=== PATIENT | female | born 1970 | race Caucasian/White ===

== ENCOUNTER 2019-05-11 05:42 | Outpatient (RCR) | payer OTHER, SELFPAY | END 2019-05-16 00:01 | LOC: ONCMED 05:42 | PROVIDERS: Family Provider Family Medicine; Visit Provider Internal Medicine Medical Oncology | DX: K91.2 Postsurgical malabsorption, not elsewhere classified (principal); E61.0 Copper deficiency; D50.8 Other iron deficiency anemias; D51.8 Other vitamin B12 deficiency anemias | CPT/HCPCS: 80053 ×2; 85025 ×2; 96360 ×3; 96365 ×5; J0610 ×4; J1642 ×9; J3490 ×6; J7050 ×9 ==

== ENCOUNTER 2019-06-15 05:34 | Outpatient (RCR) | payer OTHER, SELFPAY | END 2019-06-16 00:01 | LOC: ONCMED 05:34 | PROVIDERS: Family Provider Family Medicine; Visit Provider Internal Medicine Medical Oncology | DX: D50.8 Other iron deficiency anemias (principal); D51.8 Other vitamin B12 deficiency anemias; K91.2 Postsurgical malabsorption, not elsewhere classified; Z98.84 Bariatric surgery status; G89.29 Other chronic pain; N31.9 Neuromuscular dysfunction of bladder, unspecified; N39.0 Urinary tract infection, site not specified; E55.9 Vitamin D deficiency, unspecified | CPT/HCPCS: 36415; 80053 ×3; 81001; 82306; 82525; 82607; 82728; 83090; 83540; 83550; 83921; 84439; 84443; 84481; 85025 ×3; 87077; 87086 ×2; 87186; 90670; 96360; 96365 ×5; 96367 ×2; 96368; 99214; G0009; J0610 ×5; J1439 ×2; J1642 ×7; J3490 ×2; J7050 ×8 ==

== ENCOUNTER 2019-07-13 05:39 | Outpatient (RCR) | payer OTHER, SELFPAY ==
[2019-06-18] MEDS: SODIUM CHLORIDE 0.9% IV (08:45)
[2019-06-18] MEDS: CUPRIC CHLORIDE IV (08:45)
[2019-06-19] MEDS: CUPRIC CHLORIDE IV (09:08)
[2019-06-19] MEDS: SODIUM CHLORIDE 0.9% IV (09:08)
[2019-06-29 10:50] LABS: Basophils % 0.5 %; Eosinophils # 0.1 10^3/uL (0.0-0.8); Eosinophils % 1.3 %; Hematocrit 32.5 % (37.0-47.0); Hemoglobin 10.1 g/dL (11.5-15.3); Lymphocytes # 0.9 10^3/uL (0.8-4.8); Lymphocytes % 22.8 %; Mean Corpuscular HGB Conc 31.1 g/dL (30.0-36.0); Mean Corpuscular Hemoglobin 33.1 pg (28.0-34.0); Mean Corpuscular Volume 106.6 fL (81-99); Monocytes # 0.3 10^3/uL (0.2-0.9); Monocytes % 7.5 %; Neutrophils # 2.5 10^3/uL (1.8-7.7); Neutrophils % 67.9 %; Nucleated Red Blood Cells % 0 %; Platelet Count 152 10^3/cmm (130-400); Red Blood Count 3.05 10^6/uL (4.1-5.3); Red Cell Distribution Width 14.1 % (12.1-15.1); White Blood Count 3.7 10^3/uL (4.0-10.0)
[2019-06-29 11:07] LABS: Alanine Aminotransferase 41 U/L (0-33); Albumin Level 4.3 g/dL (3.5-5.2); Alkaline Phosphatase 103 IU/L (35-105); Aspartate Amino Transferase 34 U/L (0-32); Blood Urea Nitrogen 8 mg/dL (6-20); Calcium 8.5 mg/Dl (8.6-10.0); Carbon Dioxide 20 mmol/L (22-29); Chloride 110 mmol/L (98-107); Globulin 1.4 g/dL (1.3-4.6); Glomerular Filtration Rate 106.7 mL/min (90-130); Glucose 92 mg/dL (74-109); Sodium 139 mmol/L (136-145); Total Bilirubin 0.2 mg/dL (0.15-1.2); Total Protein 5.7 g/dL (6.6-8.7)
[2019-07-13 09:29] LABS: Basophils % 0.9 %; Eosinophils # 0.1 10^3/uL (0.0-0.8); Eosinophils % 2.8 %; Hematocrit 30.3 % (37.0-47.0); Hemoglobin 9.3 g/dL (11.5-15.3); Lymphocytes % 32.9 %; Mean Corpuscular HGB Conc 30.7 g/dL (30.0-36.0); Mean Corpuscular Volume 107.4 fL (81-99); Mean Platelet Volume 9.9 fL (7.4-10.4); Monocytes # 0.3 10^3/uL (0.2-0.9); Monocytes % 9.8 %; Neutrophils # 1.7 10^3/uL (1.8-7.7); Neutrophils % 53.3 %; Nucleated Red Blood Cells % 0 %; Platelet Count 164 10^3/cmm (130-400); Red Blood Count 2.82 10^6/uL (4.1-5.3); Red Cell Distribution Width 13.2 % (12.1-15.1); White Blood Count 3.2 10^3/uL (4.0-10.0)
[2019-07-13 09:45] LABS: Alanine Aminotransferase 23 U/L (0-33); Albumin Level 3.9 g/dL (3.5-5.2); Alkaline Phosphatase 101 IU/L (35-105); Anion Gap 11.3 (5-19); Aspartate Amino Transferase 25 U/L (0-32); Blood Urea Nitrogen 12 mg/dL (6-20); Carbon Dioxide 22 mmol/L (22-29); Chloride 107 mmol/L (98-107); Globulin 1.7 g/dL (1.3-4.6); Glomerular Filtration Rate 76.6 mL/min (90-130); Glucose 106 mg/dL (74-109); Potassium 4.3 mmol/L (3.5-5.1); Sodium 136 mmol/L (136-145); Total Bilirubin 0.2 mg/dL (0.15-1.2); Total Protein 5.6 g/dL (6.6-8.7)
== END 2019-07-17 23:59 | disposition home or self-care (01) ==
LOC: ONCMED 05:39
PROVIDERS: Family Provider Family Medicine; PCP Family Medicine; Visit Provider Internal Medicine Medical Oncology
DX: K91.2 Postsurgical malabsorption, not elsewhere classified (principal); E61.0 Copper deficiency; D51.8 Other vitamin B12 deficiency anemias; D50.8 Other iron deficiency anemias
CPT/HCPCS: 80053; 85025; 96365; J0610; J3490; J7050

== ENCOUNTER 2019-08-11 05:36 | Outpatient (RCR) | payer OTHER, SELFPAY ==
[2019-07-27 09:35] LABS: Basophils % 0.8 %; Eosinophils # 0.1 10^3/uL (0.0-0.8); Hematocrit 30.1 % (37.0-47.0); Hemoglobin 9.4 g/dL (11.5-15.3); Lymphocytes # 1.5 10^3/uL (0.8-4.8); Lymphocytes % 38.1 %; Mean Corpuscular HGB Conc 31.2 g/dL (30.0-36.0); Mean Corpuscular Hemoglobin 33.2 pg (28.0-34.0); Mean Corpuscular Volume 106.4 fL (81-99); Mean Platelet Volume 10.1 fL (7.4-10.4); Monocytes # 0.5 10^3/uL (0.2-0.9); Monocytes % 11.9 %; Neutrophils # 1.8 10^3/uL (1.8-7.7); Neutrophils % 46.2 %; Nucleated Red Blood Cells % 0 %; Platelet Count 156 10^3/cmm (130-400); Red Blood Count 2.83 10^6/uL (4.1-5.3); Red Cell Distribution Width 12.7 % (12.1-15.1); White Blood Count 3.9 10^3/uL (4.0-10.0)
[2019-07-27 10:05] LABS: Alanine Aminotransferase 28 U/L (0-33); Albumin Level 3.6 g/dL (3.5-5.2); Alkaline Phosphatase 118 IU/L (35-105); Anion Gap 14.2 (5-19); Aspartate Amino Transferase 29 U/L (0-32); Blood Urea Nitrogen 10 mg/dL (6-20); Carbon Dioxide 22 mmol/L (22-29); Chloride 105 mmol/L (98-107); Globulin 1.8 g/dL (1.3-4.6); Glomerular Filtration Rate 66.8 mL/min (90-130); Glucose 85 mg/dL (65-115); Potassium 4.2 mmol/L (3.5-5.1); Sodium 137 mmol/L (136-145); Total Bilirubin 0.2 mg/dL (0.15-1.2); Total Protein 5.4 g/dL (6.6-8.7)
[2019-07-28] MEDS: SODIUM CHLORIDE 0.9% IV (08:45)
[2019-07-28] MEDS: CUPRIC CHLORIDE IV (08:45)
[2019-07-29] MEDS: SODIUM CHLORIDE 0.9% IV (08:50)
[2019-07-29] MEDS: CUPRIC CHLORIDE IV (08:50)
[2019-07-30] MEDS: SODIUM CHLORIDE 0.9% IV (08:40)
[2019-07-30] MEDS: CUPRIC CHLORIDE IV (08:40)
[2019-07-31] MEDS: SODIUM CHLORIDE 0.9% IV (08:55)
[2019-07-31] MEDS: CUPRIC CHLORIDE IV (08:55)
[2019-08-10 09:24] LABS: Basophils % 0.6 %; Eosinophils # 0.1 10^3/uL (0.0-0.8); Eosinophils % 1.3 %; Hematocrit 32.1 % (37.0-47.0); Hemoglobin 9.8 g/dL (11.5-15.3); Lymphocytes # 1.1 10^3/uL (0.8-4.8); Lymphocytes % 22.7 %; Mean Corpuscular HGB Conc 30.5 g/dL (30.0-36.0); Mean Corpuscular Hemoglobin 31.9 pg (28.0-34.0); Mean Corpuscular Volume 104.6 fL (81-99); Monocytes # 0.4 10^3/uL (0.2-0.9); Monocytes % 7.8 %; Neutrophils # 3.2 10^3/uL (1.8-7.7); Neutrophils % 67.4 %; Nucleated Red Blood Cells % 0 %; Platelet Count 196 10^3/cmm (130-400); Red Blood Count 3.07 10^6/uL (4.1-5.3); Red Cell Distribution Width 12.2 % (12.1-15.1); White Blood Count 4.8 10^3/uL (4.0-10.0)
[2019-08-10 09:47] LABS: Alanine Aminotransferase 33 U/L (0-33); Albumin Level 3.9 g/dL (3.5-5.2); Alkaline Phosphatase 130 IU/L (35-105); Anion Gap 15.3 (5-19); Aspartate Amino Transferase 29 U/L (0-32); Blood Urea Nitrogen 17 mg/dL (6-20); Carbon Dioxide 21 mmol/L (22-29); Chloride 105 mmol/L (98-107); Globulin 2.5 g/dL (1.3-4.6); Glomerular Filtration Rate 66.8 mL/min (90-130); Glucose 107 mg/dL (65-115); Potassium 4.3 mmol/L (3.5-5.1); Sodium 137 mmol/L (136-145); Total Bilirubin 0.3 mg/dL (0.15-1.2); Total Protein 6.4 g/dL (6.6-8.7)
[2019-08-11 09:16] LABS: Free T4 Free Thyroxine 0.75 ng/dL (0.82-1.77); Lactate Dehydrogenase 208 U/L (135-214); T3 Free 2.4 PG/ML (2.0-4.4); Thyroid Stimulating Hormone 21.55 uIU/mL (0.27-4.20)
[2019-08-11 09:37] LABS: 25 Hydroxy Vitamin D < 5 ng/mL (30-100)
[2019-08-11 09:52] LABS: Ferritin 417 ng/mL (15-150); Iron 151 ug/dL (37-145); Percent Saturation 44.1 % (20-50); Total Iron Binding Capacity 342 mcg/dl; Unsaturated Iron Binding 191 ug/dL (112-347)
[2019-08-13 18:55] LABS: Copper Level 72 mcg/dL (70-175)
== END 2019-08-15 23:59 | disposition home or self-care (01) ==
LOC: ONCMED 05:36
PROVIDERS: Family Provider Family Medicine; PCP Family Medicine; Visit Provider Internal Medicine Medical Oncology
DX: E61.0 Copper deficiency (principal); K91.2 Postsurgical malabsorption, not elsewhere classified; D51.8 Other vitamin B12 deficiency anemias; D50.9 Iron deficiency anemia, unspecified
CPT/HCPCS: 36591; 80053; 82306; 82525; 82728; 83540; 83550; 83615; 84439; 84443; 84481; 85025; 96365; 96366; 96368; J0610; J3490; J7050

== ENCOUNTER 2019-09-15 06:42 | Outpatient (RCR) | payer OTHER, SELFPAY ==
--- NOTE | 2019-08-18 07:06 | ONC FU_ITS ---
Dr. Jim Patient Follow-Up Note Patient: Radha Contreras Unit #: [id number]: [id number] Dicatated By: Gerardo Jim M.D.Date of Visit:Aug 17, 2019 Onc Med Follow-up/Prog Note Chief Complaint: Anemia. History of Present Illness: This is a 49 year-old woman with chronic anemia. I had initially seen for iron deficiency anemia which developed in association with a previous gastric bypass procedure. I had treated her with parenteral iron dextran in 2003 and again in 2005. She also was on B12 replacement, and for a while she was getting Procrit injections, but that was stopped as of April 2007. I had seen her again in October of 2012 when she again required parenteral iron dextran. Shortly after that visit she was hospitalized at [facility] in [place] with bowel obstruction secondary to intussusception. She required multiple surgeries, including temporary ileostomy and placement of a PEG tube. She had associated sepsis with respiratory failure and with renal failure. She eventually did recover, but she was hospitalized again in September of 2015 for urinary tract infection and sepsis. She was found to be anemic again in January 2016. Her laboratory studies from 02/01/2016 included CBC showing hemoglobin 8.6 g with hematocrit 29%. The red cell indices were macrocytic with MCV 110 MCH 31. The white blood cell count was 4800 and the platelet count was 200,000. The serum iron was normal at 91 mcg/dL with transferrin saturation 23%. Ferritin was normal 140 ng/mL. Her CBC from 03/02/2016 showing hemoglobin down to 8.2 g with hematocrit 28%. At that time they folic acid level was normal at 6.9 ng/mL with B12 level in the low-normal range at 290 pg/mL. She was given a transfusion of 2 minutes of packed red blood cells on 03/08/2016. I had seen her for a follow-up visit on 04/02/2016. Her CBC at that time showed hemoglobin 9.3 g with white blood cell count 3800 and platelet count 146,000. Red cell indices were mildly macrocytic. Protein electrophoresis showed hypogammaglobulinemia. There is no monoclonal protein. The B12 level was in the low-normal range at 303 5 pg/mL with folate 6.30 ng/mL. The methylmalonic acid level was significantly elevated at 1511 nmol/L with homocysteine elevated at 18.7 nmol/L. She had been on monthly B12 replacement. Given those findings, her B12 injections were increased to weekly. She was given a single infusion of Injectafer on 06/08/2016. During subsequent follow-up, she remained mildly anemic. As of 10/16/2016 her hemoglobin was mildly decreased but stable at 10.1 g with mildly macrocytic red cell indices. Her serum iron studies showed transferrin saturation just slightly low at 17% with ferritin 98 ng/mL. She underwent bone marrow aspiration/biopsy on 10/31/2016. It showed normal cellularity of 35-40%. There was limited dyserythropoiesis involving less than 5% of the population. Blasts were not increased. There was no evidence of an infiltrative process. Iron stores were 1-2+/4. The flow cytometry was unremarkable. The chromosome analysis was normal, and the FISH panel for MDS was unrevealing. Overall, the findings were nondiagnostic. Her repeat CBC on 12/07/2016 showed hemoglobin down to 8.7 g with white blood cell count 3600 and platelet count 208,000. The serum iron was 60 mcg/dL with transferrin saturation 13.4%. Ferritin level was 145 ng/mL. Homocysteine level was elevated at 18.3 ???mol per liter. The methylmalonic acid level at that point was still elevated at 786/378 nmol/L despite the fact that she been receiving B12 injections weekly. With the low transferrin saturation, she was given an additional infusion of Injectafer on 12/11/2016. In addition, she was instructed to take her B12 injections daily for 7 days, and she then continued it weekly. Her follow-up CBC on 12/25/2016 showed just a slight increase in her hemoglobin, to 9.5 g with her MCV slightly high but stable at 103. During subsequent follow-up, her methylmalonic acid level remained elevated despite having weekly B12 injections, and she remained mildly anemic. On 04/18/2017 she presented to the emergency room with pain in the lower abdominal area. Her CT abdomen/pelvis showed twisting of the sigmoid colon and associated mesentery with mild bowel distention but without gross bowel dilatation. The findings were felt to be suspicious for internal hernia. She was known to have a large amount of colonic stool. She was transferred to the [facility] for further management, and she subsequently was admitted to the hospital there. Her obstructive symptoms resolved within a few days. She was, however, also found to have evidence of rectal prolapse, and she then underwent perineal proctectomy. As of 06/04/2017 her CBC showed decline in her hemoglobin to 8.8 g with MCV 102.6. The white blood cell count was 3300 and the platelet count was 284,000. The uncorrected reticulocyte count was 1.4%. Her chem profile showed normal renal function with BUN 15 and creatinine 0.7 mg/dL. Liver enzymes were normal. The serum iron studies showed low transferrin saturation at 15.3%, but with ferritin slightly high at 295 ng/mL. B12 level was normal at 471 pg/mL with folate level 7.20 ng/mL. Methylmalonic acid level was still elevated at 977/378 nmol/L. Her serum copper level was found to be low at 47 g/dL. She initially was started on oral copper supplementation. She then had further follow-up through her surgeon in [place], and there was reportedly no evidence of response to the oral copper supplement. She was then referred to a welder 2nd shift there in [place] and in August or September 2017, and she subsequently began copper infusions daily for 5 days every 6 weeks. During her further follow-up, she also developed symptomatic hypocalcemia, and she was found to have severe vitamin D deficiency. She has since then been receiving weekly infusions of calcium gluconate and a multivitamin preparation along with her B12 replacement and her copper infusions every 6 weeks. Her other medical illnesses include hypertension and hypothyroidism. She has had chronic fatigue and chronic pain, and she has neurogenic bladder. She has history of smoking 1 pack of cigarettes daily for 12 years. She quit smoking 5 years ago. INTERIM HISTORY: She is seen for a scheduled visit. She has been feeling okay, though lately she has been dragging quite a bit. Last week she had fever for a day and a half, up to 102 degrees. During that time she was more fatigued, she also had headache and nausea, but she did not have other symptoms to suggest an obvious source for the fever. She is still working. Her ECOG score is 1. Her appetite has generally been pretty good. She does not have night sweats or hot flashes. She has had just a couple of little sores in her mouth. She does not complain of shortness of breath, cough, or chest pain. She continues to have frequent bowel movements with some incontinence. She has not been aware of any blood in the stool. She self catheterizes for urinary retention. She has some generalized aching, more in the bones than the joints. She also has neck and back pain. She has no focal neurologic symptoms. Medications: Benadryl 2 - 4 (25 mg) Tablet Oral q 4 hours PRN, Cyanocobalamin 1 mL (of 1000 mcg/mL) Injection q 1 week for 12 times, Cytomel 1 (50 mcg) Tablet Oral daily, Folic Acid 1 (1 mg) Tablet Oral daily, Promethazine HCl 1 - 2 (25 mg) Tablet Oral q 4 hours PRN, Synthroid 5 (300 mcg) Tablet Oral daily, TraMADol HCl 2 Tablet (of 50 mg) Oral q 6 hours PRN, Tylenol 2 (325 mg) Tablet Oral q 4 hours PRN, Zofran 1 (4 mg) Tablet Oral PRN Allergies: Erythromycin, Methylporafen, Morphine Sulfate, neosporin, Stadol, and Versed. Review of Systems: Constitutional - Her energy is low. She does some light work at home. Her appetite is good and her weight is up a few pounds since her last visit. She had a fever last week of 102. It lasted a couple of days. No chills, hot flashes, or night sweats. ECOG score is 1, ENMT - No sinus congestion/drainage. She has a couple of mouth sores. No sore throat or difficulty swallowing, Hematologic/Lymphatic - No abnormal bruising or bleeding, Respiratory - She has some trouble breathing through her nose at times. No shortness of breath. No cough. No pleuritic pain or hemoptysis, Cardiovascular - No angina pain. No palpitations, Gastrointestinal - No nausea or vomiting. No heartburn or acid reflux. She has frequent bowel movements. No blood in the stool or black stools, Genitourinary (F) - She self catheterizes, Musculoskeletal - She has pain in her back and neck, Integumentary - No skin complications, Neurologic - No headache or dizziness. She has some numbness and tingling, which is chronic for her, Psychiatric - No anxiety or depression. She is not sleeping well at night. Vital Signs: Performed on Aug 17, 2019 08:36 Height - 63.00 in Weight - 153 lbs (HIGH) BSA - 1.73 sq.m BMI - 27.10 Temperature - 98.3 F (LOW) Pulse - 93 /min Respiration - 16 /min BP - 124/65 mm(hg) O2 Sat - 96 % Pain - 0 Physical Examination: Constitutional - She looks pretty good generally, Eyes - Sclerae nonicteric. Conjunctivae clear, ENMT - No lesions noted in the oral cavity, Hematologic/Lymphatic - No cervical, clavicular, or axillary adenopathy, Respiratory - Lungs are clear, Cardiovascular - Heart rhythm is regular. There is no murmur, gallop, or rub noted, Abdomen - Soft. The PEG tube site appears unremarkable. Liver and spleen are not enlarged. There is no abdominal mass or ascites noted. There is no inguinal adenopathy, Extremities - No edema, Neurologic - No focal neurologic deficits noted. Lab/Imaging: Test performed on Aug 11, 2019 08:22 Copper 72 mcg/dL Ferritin 417 ng/mL Iron 151 ug/dL LDH (Total) 208 U/L T3, Free 2.4 PG/ML T4, Free 0.75 ng/dL TSH 21.55 uIU/mL Vitamin D (25-Hydroxy), Total < 5 ng/mL UIBC 191 ug/dL Test performed on Aug 10, 2019 08:55 Sodium 137 mmol/L Potassium 4.3 mmol/L Chloride 105 mmol/L CO2 21 mmol/L Anion Gap 15.3 BUN 17 mg/dL Creatinine 0.9 mg/dL Cr Clearance (Est) 77.1800 mL/min eGFR 66.8 mL/min Glucose 107 mg/dL Calcium 9.0 mg/dL Protein, Total 6.4 g/dL Albumin 3.9 g/dL Globulin 2.5 g/dL Bilirubin, Total 0.3 mg/dL ALT (SGPT) 33 U/L AST (SGOT) 29 U/L Alkaline Phosphatase 130 IU/L WBC 4.8 10 3/uL RBC 3.07 10 6/uL HGB 9.8 g/dL HCT 32.1 % MCV 104.6 fL MCH 31.9 pg MCHC 30.5 g/dL RDW 12.2 % Platelet Count 196 10 3/cmm MPV 10.0 fL Neutrophils 3.2 10 3/uL Lymphocytes 1.1 10 3/uL Monocytes 0.4 10 3/uL Eosinophils 0.1 10 3/uL Basophils 0.0 10 3/uL Neutrophil % 67.4 % Lymphocyte % 22.7 % Monocyte % 7.8 % Eosinophil % 1.3 % Basophils % 0.6 % Impression: 1. Patient with recurrent iron deficiency anemia which developed following a gastric bypass procedure in 2001. She was given parenteral iron replacement with iron dextran in 2003, in 2005, and in October 2012. 2. She also had associated B12 deficiency. In March 2016 she was found to have a significantly elevated methylmalonic acid level despite monthly B12 injections. 3. Her clinical course was complicated by intussusception with bowel obstruction in October 2012. She had associated sepsis with respiratory failure and renal failure. She required multiple surgeries which included extensive bowel resection, temporary ileostomy, and placement of PEG tube. 4. She has had nutritional deficiencies related to short gut syndrome . 5. She has had chronic back pain and neurogenic bladder. During her follow-up she has had macrocytic anemia with elevated methylmalonic acid level which has persisted despite B12 replacement. Her bone marrow aspiration/biopsy on 10/31/2016 showed normal cellular marrow with no diagnostic findings. Iron stores were 1-2+. The chromosome analysis was normal, and the FISH panel for MDS was unrevealing. She subsequently was found to have copper deficiency, and she then began IV copper infusions daily for 5 days every 6 weeks. During this time she also has continued to receive parenteral iron replacement with Injectafer as needed. She had some improvement in her activity tolerance after starting the copper infusions. As of May 2018 her methylmalonic acid level had come down to normal, but she continued to have macrocytic anemia. With her short gut syndrome, she also continued to have a mildly elevated TSH level despite taking high dose of Synthroid. In August 2018 she presented with symptomatic hypocalcemia, and her 25-hydroxy vitamin D level also was found to be very low. She then started weekly infusions of calcium gluconate and a multivitamin preparation. She continued IV copper infusions every 6 weeks, and she also continued her B12 replacement. She received parenteral iron replacement with Injectafer again in May 2019. During follow-up there has been some improvement in her performance status, though she has remained mildly anemic and she has continued to have a very low vitamin D level despite the IV replacement therapy. Her overall clinical status otherwise appears stable. Plan: She will continue with parenteral replacement therapy to include weekly infusions of calcium gluconate and multivitamin and copper replacement every 6 weeks. She will continue her B12 injections. I will now have her try adding a sublingual vitamin D preparation. I will see her again in 3 months, or sooner as needed. Signed By: Gerardo Jim M.D. <<Signature on File>>
[2019-08-24] MEDS: sodium chloride 0.9% 100 ML 280 ML (09:02)
[2019-08-24 09:12] LABS: Basophils % 1.1 %; Eosinophils # 0.1 10^3/uL (0.0-0.8); Eosinophils % 2.2 %; Hematocrit 30.2 % (37.0-47.0); Hemoglobin 9.5 g/dL (11.5-15.3); Lymphocytes # 0.9 10^3/uL (0.8-4.8); Lymphocytes % 32.6 %; Mean Corpuscular HGB Conc 31.5 g/dL (30.0-36.0); Mean Corpuscular Hemoglobin 34.3 pg (28.0-34.0); Mean Platelet Volume 9.7 fL (7.4-10.4); Monocytes # 0.3 10^3/uL (0.2-0.9); Monocytes % 11.6 %; Neutrophils # 1.4 10^3/uL (1.8-7.7); Neutrophils % 52.1 %; Nucleated Red Blood Cells % 0 %; Platelet Count 155 10^3/cmm (130-400); Red Blood Count 2.77 10^6/uL (4.1-5.3); Red Cell Distribution Width 11.9 % (12.1-15.1); White Blood Count 2.8 10^3/uL (4.0-10.0)
[2019-08-24 09:26] LABS: Alanine Aminotransferase 25 U/L (0-33); Albumin Level 3.6 g/dL (3.5-5.2); Alkaline Phosphatase 128 IU/L (35-105); Anion Gap 12.2 (5-19); Aspartate Amino Transferase 27 U/L (0-32); Blood Urea Nitrogen 13 mg/dL (6-20); Calcium 8.6 mg/dL (8.5-10.5); Carbon Dioxide 21 mmol/L (22-29); Chloride 107 mmol/L (98-107); Globulin 2.2 g/dL (1.3-4.6); Glomerular Filtration Rate 76.6 mL/min (90-130); Glucose 117 mg/dL (65-115); Osmolality Calculated 279 mOsm/kg (285-295); Potassium 4.2 mmol/L (3.5-5.1); Sodium 136 mmol/L (136-145); Total Bilirubin 0.3 mg/dL (0.15-1.2); Total Protein 5.8 g/dL (6.6-8.7)
[2019-09-07 09:11] LABS: Basophils % 0.5 %; Eosinophils # 0.1 10^3/uL (0.0-0.8); Eosinophils % 2.3 %; Hematocrit 31.8 % (37.0-47.0); Hemoglobin 9.8 g/dL (11.5-15.3); Lymphocytes # 1.2 10^3/uL (0.8-4.8); Lymphocytes % 30.3 %; Mean Corpuscular HGB Conc 30.8 g/dL (30.0-36.0); Mean Corpuscular Hemoglobin 33.2 pg (28.0-34.0); Mean Corpuscular Volume 107.8 fL (81-99); Mean Platelet Volume 10.1 fL (7.4-10.4); Monocytes # 0.3 10^3/uL (0.2-0.9); Monocytes % 8.5 %; Neutrophils # 2.3 10^3/uL (1.8-7.7); Neutrophils % 58.1 %; Nucleated Red Blood Cells % 0 %; Platelet Count 178 10^3/cmm (130-400); Red Blood Count 2.95 10^6/uL (4.1-5.3); Red Cell Distribution Width 11.8 % (12.1-15.1)
[2019-09-07 09:32] LABS: Alanine Aminotransferase 22 U/L (0-33); Albumin Level 4.2 g/dL (3.5-5.2); Alkaline Phosphatase 139 IU/L (35-105); Anion Gap 11.2 (5-19); Aspartate Amino Transferase 28 U/L (0-32); Blood Urea Nitrogen 13 mg/dL (6-20); Calcium 8.7 mg/dL (8.5-10.5); Carbon Dioxide 23 mmol/L (22-29); Chloride 108 mmol/L (98-107); Globulin 2.1 g/dL (1.3-4.6); Glomerular Filtration Rate 76.6 mL/min (90-130); Glucose 107 mg/dL (65-115); Osmolality Calculated 283 mOsm/kg (285-295); Potassium 4.2 mmol/L (3.5-5.1); Sodium 138 mmol/L (136-145); Total Bilirubin 0.3 mg/dL (0.15-1.2); Total Protein 6.3 g/dL (6.6-8.7)
[2019-09-15] MEDS: SODIUM CHLORIDE 0.9% IV (09:10)
[2019-09-15] MEDS: CUPRIC CHLORIDE IV (09:10)
== END 2019-09-15 23:59 | disposition home or self-care (01) ==
LOC: ONCMED 06:42
PROVIDERS: Family Provider Family Medicine; PCP Family Medicine; Visit Provider Internal Medicine Medical Oncology
DX: D50.8 Other iron deficiency anemias (principal); K91.2 Postsurgical malabsorption, not elsewhere classified; E55.9 Vitamin D deficiency, unspecified; E53.8 Deficiency of other specified B group vitamins; G89.29 Other chronic pain; M54.9 Dorsalgia, unspecified; N31.9 Neuromuscular dysfunction of bladder, unspecified; E61.0 Copper deficiency; D51.8 Other vitamin B12 deficiency anemias; I10 Essential (primary) hypertension; E03.9 Hypothyroidism, unspecified; R53.82 Chronic fatigue, unspecified; Z98.84 Bariatric surgery status; Z87.891 Personal history of nicotine dependence
CPT/HCPCS: 80053; 85025; 96365; 96368; 99214; J0610; J3490; J7050

== ENCOUNTER 2019-10-12 06:44 | Outpatient (RCR) | payer OTHER, SELFPAY ==
[2019-09-21 09:14] LABS: Basophils % 0.7 %; Eosinophils # 0.1 10^3/uL (0.0-0.8); Eosinophils % 1.4 %; Hematocrit 33.3 % (37.0-47.0); Hemoglobin 10.4 g/dL (11.5-15.3); Lymphocytes % 22.9 %; Mean Corpuscular HGB Conc 31.2 g/dL (30.0-36.0); Mean Corpuscular Hemoglobin 33.5 pg (28.0-34.0); Mean Corpuscular Volume 107.4 fL (81-99); Monocytes # 0.3 10^3/uL (0.2-0.9); Monocytes % 7.4 %; Neutrophils # 2.8 10^3/uL (1.8-7.7); Neutrophils % 67.4 %; Nucleated Red Blood Cells % 0 %; Platelet Count 188 10^3/cmm (130-400); Red Cell Distribution Width 11.9 % (12.1-15.1); White Blood Count 4.2 10^3/uL (4.0-10.0)
[2019-09-21 09:30] LABS: Alanine Aminotransferase 33 U/L (0-33); Albumin Level 4.2 g/dL (3.5-5.2); Alkaline Phosphatase 143 IU/L (35-105); Anion Gap 15.1 (5-19); Aspartate Amino Transferase 30 U/L (0-32); Blood Urea Nitrogen 12 mg/dL (6-20); Calcium 8.7 mg/dL (8.5-10.5); Carbon Dioxide 20 mmol/L (22-29); Chloride 108 mmol/L (98-107); Globulin 2.1 g/dL (1.3-4.6); Glomerular Filtration Rate 76.6 mL/min (90-130); Glucose 123 mg/dL (65-115); Osmolality Calculated 285 mOsm/kg (285-295); Potassium 4.1 mmol/L (3.5-5.1); Sodium 139 mmol/L (136-145); Total Bilirubin 0.3 mg/dL (0.15-1.2); Total Protein 6.3 g/dL (6.6-8.7)
[2019-09-21 11:13] LABS: 25 Hydroxy Vitamin D > 100 ng/mL (30-100)
[2019-09-23 17:27] LABS: Copper Level 69 mcg/dL (70-175)
[2019-09-28 10:04] LABS: Basophils % 0.7 %; Eosinophils # 0.1 10^3/uL (0.0-0.8); Eosinophils % 1.2 %; Hematocrit 32.1 % (37.0-47.0); Hemoglobin 10.1 g/dL (11.5-15.3); Lymphocytes # 0.9 10^3/uL (0.8-4.8); Lymphocytes % 22.6 %; Mean Corpuscular HGB Conc 31.5 g/dL (30.0-36.0); Mean Corpuscular Hemoglobin 33.4 pg (28.0-34.0); Mean Corpuscular Volume 106.3 fL (81-99); Monocytes # 0.3 10^3/uL (0.2-0.9); Neutrophils # 2.8 10^3/uL (1.8-7.7); Neutrophils % 67.3 %; Nucleated Red Blood Cells % 0 %; Platelet Count 183 10^3/cmm (130-400); Red Blood Count 3.02 10^6/uL (4.1-5.3); Red Cell Distribution Width 12.1 % (12.1-15.1); White Blood Count 4.1 10^3/uL (4.0-10.0)
[2019-09-28 10:07] LABS: Alanine Aminotransferase 34 U/L (0-33); Albumin Level 4.2 g/dL (3.5-5.2); Alkaline Phosphatase 131 IU/L (35-105); Aspartate Amino Transferase 34 U/L (0-32); Blood Urea Nitrogen 12 mg/dL (6-20); Calcium 8.6 mg/dL (8.5-10.5); Carbon Dioxide 22 mmol/L (22-29); Chloride 107 mmol/L (98-107); Globulin 1.9 g/dL (1.3-4.6); Glomerular Filtration Rate 76.6 mL/min (90-130); Glucose 100 mg/dL (65-115); Osmolality Calculated 284 mOsm/kg (285-295); Sodium 139 mmol/L (136-145); Total Bilirubin 0.4 mg/dL (0.15-1.2); Total Protein 6.1 g/dL (6.6-8.7)
[2019-09-28 11:18] LABS: 25 Hydroxy Vitamin D 11 ng/mL (30-100)
[2019-10-01 19:30] LABS: Copper Level 74 mcg/dL (70-175)
[2019-10-12 09:04] LABS: Basophils % 0.6 %; Eosinophils # 0.1 10^3/uL (0.0-0.8); Eosinophils % 1.2 %; Hematocrit 34.1 % (37.0-47.0); Hemoglobin 10.5 g/dL (11.5-15.3); Lymphocytes # 1.6 10^3/uL (0.8-4.8); Lymphocytes % 31.1 %; Mean Corpuscular HGB Conc 30.8 g/dL (30.0-36.0); Mean Corpuscular Hemoglobin 33.2 pg (28.0-34.0); Mean Corpuscular Volume 107.9 fL (81-99); Monocytes # 0.4 10^3/uL (0.2-0.9); Monocytes % 8.5 %; Neutrophils % 58.4 %; Nucleated Red Blood Cells % 0 %; Platelet Count 179 10^3/cmm (130-400); Red Blood Count 3.16 10^6/uL (4.1-5.3); Red Cell Distribution Width 11.9 % (12.1-15.1); White Blood Count 5.1 10^3/uL (4.0-10.0)
[2019-10-12 09:19] LABS: Alanine Aminotransferase 27 U/L (0-33); Albumin Level 4.4 g/dL (3.5-5.2); Alkaline Phosphatase 122 IU/L (35-105); Anion Gap 15.2 (5-19); Aspartate Amino Transferase 28 U/L (0-32); Blood Urea Nitrogen 14 mg/dL (6-20); Calcium 8.8 mg/dL (8.5-10.5); Carbon Dioxide 21 mmol/L (22-29); Chloride 103 mmol/L (98-107); Globulin 2.3 g/dL (1.3-4.6); Glomerular Filtration Rate 66.8 mL/min (90-130); Glucose 99 mg/dL (65-115); Osmolality Calculated 276 mOsm/kg (285-295); Potassium 4.2 mmol/L (3.5-5.1); Sodium 135 mmol/L (136-145); Total Bilirubin 0.3 mg/dL (0.15-1.2); Total Protein 6.7 g/dL (6.6-8.7)
== END 2019-10-15 23:59 | disposition home or self-care (01) ==
LOC: ONCMED 06:44
PROVIDERS: Family Provider Family Medicine; PCP Family Medicine; Visit Provider Internal Medicine Medical Oncology
DX: K91.2 Postsurgical malabsorption, not elsewhere classified (principal); E61.0 Copper deficiency; D51.8 Other vitamin B12 deficiency anemias; D50.8 Other iron deficiency anemias; E55.9 Vitamin D deficiency, unspecified; E03.9 Hypothyroidism, unspecified
CPT/HCPCS: 80053; 82306; 82525; 85025; 96365; 96368; J0610; J3490; J7050

== ENCOUNTER 2019-11-10 06:49 | Outpatient (RCR) | payer OTHER, SELFPAY ==
[2019-10-26 09:31] LABS: Basophils % 0.9 %; Eosinophils # 0.1 10^3/uL (0.0-0.8); Eosinophils % 3.2 %; Hematocrit 31.6 % (37.0-47.0); Hemoglobin 9.6 g/dL (11.5-15.3); Lymphocytes # 1.7 10^3/uL (0.8-4.8); Lymphocytes % 37.2 %; Mean Corpuscular HGB Conc 30.4 g/dL (30.0-36.0); Mean Corpuscular Hemoglobin 32.9 pg (28.0-34.0); Mean Corpuscular Volume 108.2 fL (81-99); Monocytes # 0.5 10^3/uL (0.2-0.9); Monocytes % 10.8 %; Neutrophils # 2.1 10^3/uL (1.8-7.7); Neutrophils % 47.7 %; Nucleated Red Blood Cells % 0 %; Platelet Count 168 10^3/cmm (130-400); Red Blood Count 2.92 10^6/uL (4.1-5.3); White Blood Count 4.4 10^3/uL (4.0-10.0)
[2019-10-26 09:44] LABS: Alanine Aminotransferase 23 U/L (0-33); Albumin Level 4.1 g/dL (3.5-5.2); Alkaline Phosphatase 105 IU/L (35-105); Anion Gap 14.3 (5-19); Aspartate Amino Transferase 27 U/L (0-32); Blood Urea Nitrogen 15 mg/dL (6-20); Calcium 8.2 mg/dL (8.5-10.5); Carbon Dioxide 22 mmol/L (22-29); Chloride 104 mmol/L (98-107); Chol HDL Ratio 1.68 mg/dL (0.0-4.40); Cholesterol 141 mg/dL (0-200); Globulin 1.7 g/dL (1.3-4.6); Glucose 85 mg/dL (65-115); HDL Cholesterol 84 mg/dL (60-100); LDL Cholesterol Calculated 40 mg/dL (50-129); LDL HDL Ratio 0.48 RATIO (0.00-3.22); Osmolality Calculated 278 mOsm/kg (285-295); Potassium 4.3 mmol/L (3.5-5.1); Sodium 136 mmol/L (136-145); Total Bilirubin 0.4 mg/dL (0.15-1.2); Total Protein 5.8 g/dL (6.6-8.7); Triglycerides 86 mg/dL (0-150)
[2019-10-26 10:28] LABS: Estmated Average Glucose 82; Hemoglobin A1C 4.5 % (4.0-6.0)
[2019-10-27] MEDS: SODIUM CHLORIDE 0.9% IV (08:30)
[2019-10-27] MEDS: CUPRIC CHLORIDE IV (08:30)
[2019-10-28] MEDS: SODIUM CHLORIDE 0.9% IV (09:20)
[2019-10-28] MEDS: CUPRIC CHLORIDE IV (09:20)
[2019-10-29] MEDS: CUPRIC CHLORIDE IV (08:50)
[2019-10-29] MEDS: SODIUM CHLORIDE 0.9% IV (08:50)
[2019-10-30] MEDS: SODIUM CHLORIDE 0.9% IV (08:56)
[2019-10-30] MEDS: CUPRIC CHLORIDE IV (08:56)
[2019-11-10 09:22] LABS: Basophils # 0.1 10^3/uL (0.0-0.1); Basophils % 1.2 %; Eosinophils # 0.1 10^3/uL (0.0-0.8); Eosinophils % 2.4 %; Hematocrit 31.3 % (37.0-47.0); Hemoglobin 9.6 g/dL (11.5-15.3); Lymphocytes # 1.5 10^3/uL (0.8-4.8); Mean Corpuscular HGB Conc 30.7 g/dL (30.0-36.0); Mean Corpuscular Hemoglobin 32.7 pg (28.0-34.0); Mean Corpuscular Volume 106.5 fL (81-99); Monocytes # 0.4 10^3/uL (0.2-0.9); Monocytes % 9.4 %; Neutrophils # 2.1 10^3/uL (1.8-7.7); Neutrophils % 50.8 %; Nucleated Red Blood Cells % 0 %; Platelet Count 194 10^3/cmm (130-400); Red Blood Count 2.94 10^6/uL (4.1-5.3); Red Cell Distribution Width 12.6 % (12.1-15.1); White Blood Count 4.1 10^3/uL (4.0-10.0)
[2019-11-10 09:50] LABS: Alanine Aminotransferase 54 U/L (0-33); Albumin Level 4.1 g/dL (3.5-5.2); Alkaline Phosphatase 110 IU/L (35-105); Anion Gap 13.6 (5-19); Aspartate Amino Transferase 41 U/L (0-32); Blood Urea Nitrogen 19 mg/dL (6-20); Calcium 8.9 mg/dL (8.5-10.5); Carbon Dioxide 23 mmol/L (22-29); Chloride 106 mmol/L (98-107); Glomerular Filtration Rate 59.2 mL/min (90-130); Glucose 85 mg/dL (65-115); Osmolality Calculated 282 mOsm/kg (285-295); Potassium 4.6 mmol/L (3.5-5.1); Sodium 138 mmol/L (136-145); Total Bilirubin 0.3 mg/dL (0.15-1.2); Total Protein 6.1 g/dL (6.6-8.7)
== END 2019-11-15 23:59 | disposition home or self-care (01) ==
LOC: ONCMED 06:49
PROVIDERS: Family Provider Family Medicine; PCP Family Medicine; Visit Provider Internal Medicine Medical Oncology
DX: K91.2 Postsurgical malabsorption, not elsewhere classified (principal); E61.0 Copper deficiency; D50.9 Iron deficiency anemia, unspecified; D51.9 Vitamin B12 deficiency anemia, unspecified
CPT/HCPCS: 80053; 80061; 83036; 85025; 96365; J0610; J3490; J7050

== ENCOUNTER 2019-12-14 06:50 | Outpatient (RCR) | payer OTHER, SELFPAY ==
[2019-11-19 09:19] LABS: Basophils % 0.8 %; Eosinophils # 0.1 10^3/uL (0.0-0.8); Eosinophils % 1.3 %; Hematocrit 30.4 % (37.0-47.0); Hemoglobin 9.4 g/dL (11.5-15.3); Lymphocytes # 0.9 10^3/uL (0.8-4.8); Lymphocytes % 23.5 %; Mean Corpuscular HGB Conc 30.9 g/dL (30.0-36.0); Mean Corpuscular Hemoglobin 32.8 pg (28.0-34.0); Mean Corpuscular Volume 105.9 fL (81-99); Mean Platelet Volume 10.6 fL (7.4-10.4); Monocytes # 0.3 10^3/uL (0.2-0.9); Monocytes % 8.4 %; Neutrophils # 2.5 10^3/uL (1.8-7.7); Nucleated Red Blood Cells % 0 %; Platelet Count 189 10^3/cmm (130-400); Red Blood Count 2.87 10^6/uL (4.1-5.3); Red Cell Distribution Width 12.4 % (12.1-15.1); White Blood Count 3.8 10^3/uL (4.0-10.0)
[2019-11-19 09:49] LABS: Alanine Aminotransferase 24 U/L (0-33); Albumin Level 4.1 g/dL (3.5-5.2); Alkaline Phosphatase 98 IU/L (35-105); Aspartate Amino Transferase 26 U/L (0-32); Blood Urea Nitrogen 15 mg/dL (6-20); Calcium 8.7 mg/dL (8.5-10.5); Carbon Dioxide 21 mmol/L (22-29); Chloride 113 mmol/L (98-107); Free T4 Free Thyroxine 0.72 ng/dL (0.82-1.77); Globulin 1.5 g/dL (1.3-4.6); Glomerular Filtration Rate 89.3 mL/min (90-130); Glucose 80 mg/dL (65-115); Osmolality Calculated 291 mOsm/kg (285-295); Sodium 143 mmol/L (136-145); Thyroid Stimulating Hormone 7.62 uIU/mL (0.27-4.20); Total Bilirubin 0.3 mg/dL (0.15-1.2); Total Protein 5.6 g/dL (6.6-8.7)
[2019-11-19 10:54] LABS: Ferritin 313 ng/mL (15-150); Iron 116 ug/dL (37-145); Percent Saturation 32.8 % (20-50); Total Iron Binding Capacity 353 mcg/dl; Unsaturated Iron Binding 237 ug/dL (112-347)
[2019-11-21 21:51] LABS: Copper Level 65 mcg/dL (70-175)
[2019-11-23] MEDS: cyanocobalamin 1,000 mcg/mL SDV 1000 MCG SUBCUT (09:30)
[2019-11-25 21:07] LABS: Vit D 1,25 (Oh)2, Total 41 pg/mL (18-72); Vit D2 1,25 (Oh)2 <8 pg/mL; Vit D3 1,25 (Oh)2 41 pg/mL
--- NOTE | 2019-11-27 07:09 | ONC FU_ITS ---
Dr. Jim Patient Follow-Up Note Patient: Radha Contreras Unit #: [id number]: 1970 Dicatated By: Gerardo Jim M.D.Date of Visit:Nov 23, 2019 Onc Med Follow-up/Prog Note Chief Complaint: Anemia. History of Present Illness: This is a 49 year-old woman with chronic anemia. I had initially seen for iron deficiency anemia which developed in association with a previous gastric bypass procedure. I had treated her with parenteral iron dextran in 2003 and again in 2005. She also was on B12 replacement, and for a while she was getting Procrit injections, but that was stopped as of April 2007. I had seen her again in October of 2012 when she again required parenteral iron dextran. Shortly after that visit she was hospitalized at [facility] in [place] with bowel obstruction secondary to intussusception. She required multiple surgeries, including temporary ileostomy and placement of a PEG tube. She had associated sepsis with respiratory failure and with renal failure. She eventually did recover, but she was hospitalized again in September of 2015 for urinary tract infection and sepsis. She was found to be anemic again in January 2016. Her laboratory studies from 02/01/2016 included CBC showing hemoglobin 8.6 g with hematocrit 29%. The red cell indices were macrocytic with MCV 110 MCH 31. The white blood cell count was 4800 and the platelet count was 200,000. The serum iron was normal at 91 mcg/dL with transferrin saturation 23%. Ferritin was normal 140 ng/mL. Her CBC from 03/02/2016 showing hemoglobin down to 8.2 g with hematocrit 28%. At that time they folic acid level was normal at 6.9 ng/mL with B12 level in the low-normal range at 290 pg/mL. She was given a transfusion of 2 minutes of packed red blood cells on 03/08/2016. I had seen her for a follow-up visit on 04/02/2016. Her CBC at that time showed hemoglobin 9.3 g with white blood cell count 3800 and platelet count 146,000. Red cell indices were mildly macrocytic. Protein electrophoresis showed hypogammaglobulinemia. There is no monoclonal protein. The B12 level was in the low-normal range at 303 5 pg/mL with folate 6.30 ng/mL. The methylmalonic acid level was significantly elevated at 1511 nmol/L with homocysteine elevated at 18.7 nmol/L. She had been on monthly B12 replacement. Given those findings, her B12 injections were increased to weekly. She was given a single infusion of Injectafer on 06/08/2016. During subsequent follow-up, she remained mildly anemic. As of 10/16/2016 her hemoglobin was mildly decreased but stable at 10.1 g with mildly macrocytic red cell indices. Her serum iron studies showed transferrin saturation just slightly low at 17% with ferritin 98 ng/mL. She underwent bone marrow aspiration/biopsy on 10/31/2016. It showed normal cellularity of 35-40%. There was limited dyserythropoiesis involving less than 5% of the population. Blasts were not increased. There was no evidence of an infiltrative process. Iron stores were 1-2+/4. The flow cytometry was unremarkable. The chromosome analysis was normal, and the FISH panel for MDS was unrevealing. Overall, the findings were nondiagnostic. Her repeat CBC on 12/07/2016 showed hemoglobin down to 8.7 g with white blood cell count 3600 and platelet count 208,000. The serum iron was 60 mcg/dL with transferrin saturation 13.4%. Ferritin level was 145 ng/mL. Homocysteine level was elevated at 18.3 ???mol per liter. The methylmalonic acid level at that point was still elevated at 786/378 nmol/L despite the fact that she been receiving B12 injections weekly. With the low transferrin saturation, she was given an additional infusion of Injectafer on 12/11/2016. In addition, she was instructed to take her B12 injections daily for 7 days, and she then continued it weekly. Her follow-up CBC on 12/25/2016 showed just a slight increase in her hemoglobin, to 9.5 g with her MCV slightly high but stable at 103. During subsequent follow-up, her methylmalonic acid level remained elevated despite having weekly B12 injections, and she remained mildly anemic. On 04/18/2017 she presented to the emergency room with pain in the lower abdominal area. Her CT abdomen/pelvis showed twisting of the sigmoid colon and associated mesentery with mild bowel distention but without gross bowel dilatation. The findings were felt to be suspicious for internal hernia. She was known to have a large amount of colonic stool. She was transferred to the [facility] for further management, and she subsequently was admitted to the hospital there. Her obstructive symptoms resolved within a few days. She was, however, also found to have evidence of rectal prolapse, and she then underwent perineal proctectomy. As of 06/04/2017 her CBC showed decline in her hemoglobin to 8.8 g with MCV 102.6. The white blood cell count was 3300 and the platelet count was 284,000. The uncorrected reticulocyte count was 1.4%. Her chem profile showed normal renal function with BUN 15 and creatinine 0.7 mg/dL. Liver enzymes were normal. The serum iron studies showed low transferrin saturation at 15.3%, but with ferritin slightly high at 295 ng/mL. B12 level was normal at 471 pg/mL with folate level 7.20 ng/mL. Methylmalonic acid level was still elevated at 977/378 nmol/L. Her serum copper level was found to be low at 47 g/dL. She initially was started on oral copper supplementation. She then had further follow-up through her surgeon in [place], and there was reportedly no evidence of response to the oral copper supplement. She was then referred to a stripper [facility] there in [place] and in August or September 2017, and she subsequently began copper infusions daily for 5 days every 6 weeks. During her further follow-up, she also developed symptomatic hypocalcemia, and she was found to have severe vitamin D deficiency. She has since then been receiving weekly infusions of calcium gluconate and a multivitamin preparation along with her B12 replacement and her copper infusions every 6 weeks. Her other medical illnesses include hypertension and hypothyroidism. She has had chronic fatigue and chronic pain, and she has neurogenic bladder. She has history of smoking 1 pack of cigarettes daily for 12 years. She quit smoking 5 years ago. INTERIM HISTORY: She is seen for a scheduled visit. She has been feeling pretty good generally. She does have fatigue, but she is able to work full-time. ECOG score is 1. She says her appetite is not bad. She has lost some weight, though. She sometimes has low-grade fever in the evening, up to 101 degrees. She has some hot flashes and chills, but no sweating. She occasionally has mouth sores. She does not complain of shortness of breath, cough, or chest pain. She has occasional nausea/vomiting. Bowel function is the same. She has chronic incontinence. She self caths for urinary retention. Her back hurts at times, but that also is chronic. It is tolerable. She has just occasional headache. Her dizziness has been better since she stopped Coreg. She has no focal neurologic symptoms. Medications: Benadryl 2 - 4 (25 mg) Tablet Oral q 4 hours PRN, Cyanocobalamin 1 mL (of 1000 mcg/mL) Injection q 1 week for 12 times, Cytomel 1 (50 mcg) Tablet Oral daily, Folic Acid 1 (1 mg) Tablet Oral daily, Promethazine HCl 1 - 2 (25 mg) Tablet Oral q 4 hours PRN, Synthroid 5 (300 mcg) Tablet Oral daily, TraMADol HCl 2 Tablet (of 50 mg) Oral q 6 hours PRN, Tylenol 2 (325 mg) Tablet Oral q 4 hours PRN, Zofran 1 (4 mg) Tablet Oral PRN Allergies: Erythromycin, Methylporafen, Morphine Sulfate, neosporin, Stadol, and Versed. Review of Systems: Constitutional - She is feeling pretty good overall. 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 Her appetite is good. Her weight is down about 6 pounds from last visit. She has occasional fevers, typically in the evenings. They run low grade to 101. She has hot flashes or sweating. ECOG score is 1, ENMT - No sinus congestion/drainage. No mouth sores. No sore throat or difficulty swallowing, Hematologic/Lymphatic - She bruises easily, Respiratory - No shortness of breath. No cough. No pleuritic pain or hemoptysis, Cardiovascular - No angina pain. No palpitations, Gastrointestinal - She has occasional nauseaa/vomiting. No heartburn or acid reflux. Her bowels are the same. No blood in the stool or black stools, Genitourinary (F) - She has chronic urinary retention, and she self caths. She was having mild UTI symptoms last week but since resolved, Musculoskeletal - She has chronic back pain, Integumentary - No skin complications, Neurologic - No headache. She has occasional dizziness, but it has improved since stopping Coreg. No numbness or tingling. No other focal neurologic symptoms, Psychiatric - No anxiety or depression. She has chronic insomnia. Vital Signs: Performed on Nov 23, 2019 08:54 Height - 63.00 in Weight - 146.6 lbs (LOW) BSA - 1.69 sq.m BMI - 25.97 Temperature - 98.2 F (LOW) Pulse - 83 /min Respiration - 18 /min BP - 121/75 mm(hg) O2 Sat - 98 % Pain - 0 Physical Examination: Constitutional - She looks pretty good generally, Eyes - Sclerae nonicteric. Conjunctivae clear, ENMT - No lesions noted in the oral cavity, Hematologic/Lymphatic - No cervical, clavicular, or axillary adenopathy, Respiratory - Lungs are clear, Cardiovascular - Heart rhythm is regular. There is no murmur, gallop, or rub noted, Abdomen - Soft.Liver and spleen are not enlarged. There is no abdominal mass or ascites noted. There is no inguinal adenopathy, Extremities - No edema, Neurologic - No focal neurologic deficits noted. Lab/Imaging: Test performed on Nov 19, 2019 08:50 Copper 65 mcg/dL Ferritin 313 ng/mL Iron 116 mcg/dL Sodium 143 mmol/L T4, Free 0.72 ng/dL TSH 7.62 uIU/mL Iron Binding Capacity (TIBC) 353 mcg/dl Potassium 4.0 mmol/L % Iron Saturation 32.8 % Chloride 113 mmol/L CO2 21 mmol/L UIBC 237 mcg/dL Anion Gap 13.0 BUN 15 mg/dL Creatinine 0.7 mg/dL Cr Clearance (Est) 99.2400 mL/min eGFR 89.3 mL/min Glucose 80 mg/dL Calcium 8.7 mg/dL Protein, Total 5.6 g/dL Albumin 4.1 g/dL Globulin 1.5 g/dL Bilirubin, Total 0.3 mg/dL ALT (SGPT) 24 U/L AST (SGOT) 26 U/L Alkaline Phosphatase 98 IU/L WBC 3.8 10 3/uL RBC 2.87 10 6/uL HGB 9.4 g/dL HCT 30.4 % MCV 105.9 fL MCH 32.8 pg MCHC 30.9 g/dL RDW 12.4 % Platelet Count 189 10 3/cmm MPV 10.6 fL Neutrophils 2.5 10 3/uL Lymphocytes 0.9 10 3/uL Monocytes 0.3 10 3/uL Eosinophils 0.1 10 3/uL Basophils 0.0 10 3/uL Neutrophil % 66.0 % Lymphocyte % 23.5 % Monocyte % 8.4 % Eosinophil % 1.3 % Basophils % 0.8 % Impression: 1. Patient with recurrent iron deficiency anemia which developed following a gastric bypass procedure in 2001. She was given parenteral iron replacement with iron dextran in 2003, in 2005, and in October 2012. 2. She also had associated B12 deficiency. In March 2016 she was found to have a significantly elevated methylmalonic acid level despite monthly B12 injections. 3. Her clinical course was complicated by intussusception with bowel obstruction in October 2012. She had associated sepsis with respiratory failure and renal failure. She required multiple surgeries which included extensive bowel resection, temporary ileostomy, and placement of PEG tube. 4. She has had nutritional deficiencies related to short gut syndrome . 5. She has had chronic back pain and neurogenic bladder. During her follow-up she has had macrocytic anemia with elevated methylmalonic acid level which has persisted despite B12 replacement. Her bone marrow aspiration/biopsy on 10/31/2016 showed normal cellular marrow with no diagnostic findings. Iron stores were 1-2+. The chromosome analysis was normal, and the FISH panel for MDS was unrevealing. She subsequently was found to have copper deficiency, and she then began IV copper infusions daily for 5 days every 6 weeks. During this time she also has continued to receive parenteral iron replacement with Injectafer as needed. She had some improvement in her activity tolerance after starting the copper infusions. As of May 2018 her methylmalonic acid level had come down to normal, but she continued to have macrocytic anemia. With her short gut syndrome, she also continued to have a mildly elevated TSH level despite taking high dose of Synthroid. In August 2018 she presented with symptomatic hypocalcemia, and her 25-hydroxy vitamin D level also was found to be very low. She then started weekly infusions of calcium gluconate and a multivitamin preparation. She continued IV copper infusions every 6 weeks, and she also continued her B12 replacement. She received parenteral iron replacement with Injectafer again in May 2019. During follow-up she remained mildly anemic. She also continued to have a very low vitamin D level despite IV replacement therapy, and her TSH level remained mildly elevated. Her overall clinical status, though, did improve, and she has since then remained stable. Plan: She will continue her weekly infusions of calcium gluconate and multivitamin and she will continue copper replacement every 6 weeks. She also will continue B12 injections weekly. I will see her again in 3 months. Signed By: Gerardo Jim M.D. <<Signature on File>>
[2019-11-30] MEDS: cyanocobalamin 1,000 mcg/mL SDV 1000 MCG SUBCUT (09:41)
[2019-12-08] MEDS: SODIUM CHLORIDE 0.9% IV (09:49)
[2019-12-08] MEDS: CUPRIC CHLORIDE IV (09:49)
[2019-12-09] MEDS: CUPRIC CHLORIDE IV (09:00)
[2019-12-09] MEDS: SODIUM CHLORIDE 0.9% IV (09:00)
[2019-12-10] MEDS: SODIUM CHLORIDE 0.9% IV (09:00)
[2019-12-10] MEDS: CUPRIC CHLORIDE IV (09:00)
[2019-12-11] MEDS: SODIUM CHLORIDE 0.9% IV (09:00)
[2019-12-11] MEDS: CUPRIC CHLORIDE IV (09:00)
[2019-12-14] MEDS: cyanocobalamin 1,000 mcg/mL SDV 1000 MCG SUBCUT (09:20)
== END 2019-12-15 23:59 | disposition home or self-care (01) ==
LOC: ONCMED 06:50
PROVIDERS: PCP Family Medicine; Visit Provider Internal Medicine Medical Oncology
DX: D50.8 Other iron deficiency anemias (principal); D51.8 Other vitamin B12 deficiency anemias; K91.2 Postsurgical malabsorption, not elsewhere classified; E55.9 Vitamin D deficiency, unspecified; E61.0 Copper deficiency; R94.6 Abnormal results of thyroid function studies; G89.29 Other chronic pain; M54.5 Low back pain; N31.9 Neuromuscular dysfunction of bladder, unspecified
CPT/HCPCS: 36415; 80053; 82525; 82652; 82728; 83540; 83550; 84439; 84443; 85025; 96365; 96372; 99214; J0610; J3420; J3490; J7050

== ENCOUNTER 2020-01-11 06:45 | Outpatient (RCR) | payer OTHER, SELFPAY ==
[2019-12-21] MEDS: cyanocobalamin 1,000 mcg/mL SDV 1000 MCG SUBCUT (09:15)
[2019-12-28] MEDS: cyanocobalamin 1,000 mcg/mL SDV 1000 MCG SUBCUT (09:00)
[2019-12-28 09:39] LABS: Basophils % 0.8 %; Eosinophils # 0.1 10^3/uL (0.0-0.8); Eosinophils % 1.1 %; Hematocrit 35.4 % (37.0-47.0); Hemoglobin 10.8 g/dL (11.5-15.3); Lymphocytes # 1.1 10^3/uL (0.8-4.8); Lymphocytes % 23.7 %; Mean Corpuscular HGB Conc 30.5 g/dL (30.0-36.0); Mean Corpuscular Hemoglobin 32.2 pg (28.0-34.0); Mean Corpuscular Volume 105.7 fL (81-99); Mean Platelet Volume 10.4 fL (7.4-10.4); Monocytes # 0.3 10^3/uL (0.2-0.9); Monocytes % 7.2 %; Neutrophils # 3.17 10^3/uL (1.8-7.7); Nucleated Red Blood Cells % 0 %; Platelet Count 201 10^3/cmm (130-400); Red Blood Count 3.35 10^6/uL (4.1-5.3); Red Cell Distribution Width 12.2 % (12.1-15.1); White Blood Count 4.7 10^3/uL (4.0-10.0)
[2019-12-28 09:58] LABS: Alanine Aminotransferase 26 U/L (0-33); Albumin Level 4.3 g/dL (3.5-5.2); Alkaline Phosphatase 97 IU/L (35-105); Aspartate Amino Transferase 25 U/L (0-32); Blood Urea Nitrogen 12 mg/dL (6-20); Calcium 8.7 mg/dL (8.5-10.5); Carbon Dioxide 19 mmol/L (22-29); Chloride 109 mmol/L (98-107); Globulin 2.2 g/dL (1.3-4.6); Glomerular Filtration Rate 76.6 mL/min (90-130); Glucose 90 mg/dL (65-115); Osmolality Calculated 282 mOsm/kg (285-295); Sodium 138 mmol/L (136-145); Total Bilirubin 0.3 mg/dL (0.15-1.2); Total Protein 6.5 g/dL (6.6-8.7)
[2020-01-04] MEDS: cyanocobalamin 1,000 mcg/mL SDV 1000 MCG SUBCUT (09:00)
[2020-01-11] MEDS: cyanocobalamin 1,000 mcg/mL SDV 1000 MCG SUBCUT (09:00)
[2020-01-11 10:03] LABS: Basophils % 0.8 %; Eosinophils # 0.1 10^3/uL (0.0-0.8); Eosinophils % 1.8 %; Hematocrit 33.3 % (37.0-47.0); Hemoglobin 9.9 g/dL (11.5-15.3); Lymphocytes # 1.2 10^3/uL (0.8-4.8); Lymphocytes % 30.4 %; Mean Corpuscular HGB Conc 29.7 g/dL (30.0-36.0); Mean Corpuscular Hemoglobin 31.4 pg (28.0-34.0); Mean Corpuscular Volume 105.7 fL (81-99); Mean Platelet Volume 10.2 fL (7.4-10.4); Monocytes # 0.3 10^3/uL (0.2-0.9); Monocytes % 8.6 %; Neutrophils # 2.31 10^3/uL (1.8-7.7); Neutrophils % 58.4 %; Nucleated Red Blood Cells % 0 %; Platelet Count 177 10^3/cmm (130-400); Red Blood Count 3.15 10^6/uL (4.1-5.3); Red Cell Distribution Width 12.3 % (12.1-15.1)
[2020-01-11 10:07] LABS: Alanine Aminotransferase 25 U/L (0-33); Albumin Level 4.1 g/dL (3.5-5.2); Alkaline Phosphatase 85 IU/L (35-105); Anion Gap 12.1 (5-19); Aspartate Amino Transferase 31 U/L (0-32); Blood Urea Nitrogen 13 mg/dL (6-20); Calcium 8.1 mg/dL (8.5-10.5); Carbon Dioxide 22 mmol/L (22-29); Chloride 110 mmol/L (98-107); Globulin 1.8 g/dL (1.3-4.6); Glomerular Filtration Rate 76.6 mL/min (90-130); Glucose 88 mg/dL (65-115); Osmolality Calculated 286 mOsm/kg (285-295); Potassium 4.1 mmol/L (3.5-5.1); Sodium 140 mmol/L (136-145); Total Bilirubin 0.3 mg/dL (0.15-1.2); Total Protein 5.9 g/dL (6.6-8.7)
[2020-01-12 10:52] LABS: 25 Hydroxy Vitamin D 8 ng/mL (30-100); Ferritin 299 ng/mL (15-150); Iron 76 ug/dL (37-145); Percent Saturation 23.3 % (20-50); Total Iron Binding Capacity 325 mcg/dl; Unsaturated Iron Binding 249 ug/dL (112-347)
== END 2020-01-15 23:59 | disposition home or self-care (01) ==
LOC: ONCMED 06:45
PROVIDERS: Nurse Practitioner; PCP Family Medicine; Visit Provider Internal Medicine Medical Oncology
DX: K91.2 Postsurgical malabsorption, not elsewhere classified (principal); E61.0 Copper deficiency; D51.8 Other vitamin B12 deficiency anemias; D50.8 Other iron deficiency anemias
CPT/HCPCS: 80053; 82306; 82728; 83540; 83550; 85025; 96365; 96372; J0610; J3420; J7050

== ENCOUNTER 2020-02-15 05:34 | Outpatient (RCR) | payer OTHER, SELFPAY ==
[2020-01-19] MEDS: SODIUM CHLORIDE 0.9% IV (08:40)
[2020-01-19] MEDS: CUPRIC CHLORIDE IV (08:40)
[2020-01-19] MEDS: cyanocobalamin 1,000 mcg/mL SDV 1000 MCG SUBCUT (09:40)
[2020-01-20] MEDS: SODIUM CHLORIDE 0.9% IV (09:27)
[2020-01-20] MEDS: CUPRIC CHLORIDE IV (09:27)
[2020-01-21] MEDS: CUPRIC CHLORIDE IV (08:30)
[2020-01-21] MEDS: SODIUM CHLORIDE 0.9% IV (08:30)
[2020-01-22] MEDS: SODIUM CHLORIDE 0.9% IV (09:26)
[2020-01-22] MEDS: CUPRIC CHLORIDE IV (09:26)
[2020-01-25 10:23] LABS: Basophils % 0.8 %; Eosinophils # 0.1 10^3/uL (0.0-0.8); Eosinophils % 2.1 %; Hematocrit 32.9 % (37.0-47.0); Hemoglobin 10.1 g/dL (11.5-15.3); Lymphocytes # 1.8 10^3/uL (0.8-4.8); Mean Corpuscular HGB Conc 30.7 g/dL (30.0-36.0); Mean Corpuscular Hemoglobin 32.8 pg (28.0-34.0); Mean Corpuscular Volume 106.8 fL (81-99); Mean Platelet Volume 10.5 fL (7.4-10.4); Monocytes # 0.4 10^3/uL (0.2-0.9); Monocytes % 8.5 %; Neutrophils # 2.43 10^3/uL (1.8-7.7); Neutrophils % 50.2 %; Nucleated Red Blood Cells % 0 %; Platelet Count 182 10^3/cmm (130-400); Red Blood Count 3.08 10^6/uL (4.1-5.3); Red Cell Distribution Width 12.6 % (12.1-15.1); White Blood Count 4.8 10^3/uL (4.0-10.0)
[2020-01-25 10:49] LABS: Alanine Aminotransferase 25 U/L (0-33); Alkaline Phosphatase 81 IU/L (35-105); Anion Gap 11.2 (5-19); Aspartate Amino Transferase 25 U/L (0-32); Blood Urea Nitrogen 19 mg/dL (6-20); Carbon Dioxide 22 mmol/L (22-29); Chloride 107 mmol/L (98-107); Globulin 1.9 g/dL (1.3-4.6); Glomerular Filtration Rate 66.8 mL/min (90-130); Glucose 78 mg/dL (65-115); Osmolality Calculated 277 mOsm/kg (285-295); Potassium 4.2 mmol/L (3.5-5.1); Sodium 136 mmol/L (136-145); Total Bilirubin 0.3 mg/dL (0.15-1.2); Total Protein 5.9 g/dL (6.6-8.7)
[2020-01-25] MEDS: cyanocobalamin 1,000 mcg/mL SDV 1000 MCG SUBCUT (16:40)
[2020-02-01] MEDS: cyanocobalamin 1,000 mcg/mL SDV 1000 MCG SUBCUT (08:40)
[2020-02-08] MEDS: cyanocobalamin 1,000 mcg/mL SDV 1000 MCG SUBCUT (09:10)
[2020-02-15] MEDS: cyanocobalamin 1,000 mcg/mL SDV 1000 MCG SUBCUT (10:15)
== END 2020-02-15 23:59 | disposition home or self-care (01) ==
LOC: ONCMED 05:34
PROVIDERS: PCP Family Medicine; Visit Provider Internal Medicine Medical Oncology
DX: K91.2 Postsurgical malabsorption, not elsewhere classified (principal); E61.0 Copper deficiency; D51.9 Vitamin B12 deficiency anemia, unspecified; D50.9 Iron deficiency anemia, unspecified
CPT/HCPCS: 80053; 85025; 96360; 96365; 96367; 96372; J0610; J3420; J3490; J7050

== ENCOUNTER 2020-03-14 05:42 | Outpatient (RCR) | payer OTHER, SELFPAY ==
[2020-02-23] MEDS: cyanocobalamin 1,000 mcg/mL SDV 1000 MCG SUBCUT (08:50)
[2020-02-23 09:25] LABS: Basophils % 0.8 %; Eosinophils # 0.1 10^3/uL (0.0-0.8); Eosinophils % 2.4 %; Hematocrit 31.4 % (37.0-47.0); Hemoglobin 9.4 g/dL (11.5-15.3); Lymphocytes % 39.6 %; Mean Corpuscular HGB Conc 29.9 g/dL (30.0-36.0); Mean Corpuscular Hemoglobin 32.4 pg (28.0-34.0); Mean Corpuscular Volume 108.3 fL (81-99); Mean Platelet Volume 10.5 fL (7.4-10.4); Monocytes # 0.5 10^3/uL (0.2-0.9); Monocytes % 9.4 %; Neutrophils # 2.43 10^3/uL (1.8-7.7); Neutrophils % 47.6 %; Nucleated Red Blood Cells % 0 %; Platelet Count 186 10^3/cmm (130-400); Red Cell Distribution Width 13.2 % (12.1-15.1); White Blood Count 5.1 10^3/uL (4.0-10.0)
[2020-02-23 09:46] LABS: Alanine Aminotransferase 21 U/L (0-33); Albumin Level 4.1 g/dL (3.5-5.2); Alkaline Phosphatase 82 IU/L (35-105); Anion Gap 10.5 (5-19); Aspartate Amino Transferase 21 U/L (0-32); Blood Urea Nitrogen 17 mg/dL (6-20); Calcium 8.2 mg/dL (8.5-10.5); Carbon Dioxide 22 mmol/L (22-29); Chloride 108 mmol/L (98-107); Globulin 1.9 g/dL (1.3-4.6); Glomerular Filtration Rate 76.2 mL/min (90-130); Glucose 83 mg/dL (65-115); Osmolality Calculated 278 mOsm/kg (285-295); Potassium 4.5 mmol/L (3.5-5.1); Sodium 136 mmol/L (136-145); Total Bilirubin 0.3 mg/dL (0.15-1.2)
[2020-02-29] MEDS: cyanocobalamin 1,000 mcg/mL SDV 1000 MCG SUBCUT (09:50)
[2020-02-29 10:46] LABS: Basophils % 0.8 %; Eosinophils # 0.1 10^3/uL (0.0-0.8); Eosinophils % 1.4 %; Hematocrit 32.1 % (37.0-47.0); Hemoglobin 9.8 g/dL (11.5-15.3); Lymphocytes # 1.1 10^3/uL (0.8-4.8); Lymphocytes % 21.4 %; Mean Corpuscular HGB Conc 30.5 g/dL (30.0-36.0); Mean Corpuscular Hemoglobin 32.5 pg (28.0-34.0); Mean Corpuscular Volume 106.3 fL (81-99); Mean Platelet Volume 10.3 fL (7.4-10.4); Monocytes # 0.5 10^3/uL (0.2-0.9); Monocytes % 8.8 %; Neutrophils # 3.45 10^3/uL (1.8-7.7); Neutrophils % 67.6 %; Nucleated Red Blood Cells % 0 %; Platelet Count 192 10^3/cmm (130-400); Red Blood Count 3.02 10^6/uL (4.1-5.3); White Blood Count 5.1 10^3/uL (4.0-10.0)
[2020-02-29 11:20] LABS: 25 Hydroxy Vitamin D 6 ng/mL (30-100); Alanine Aminotransferase 29 U/L (0-33); Albumin Level 4.3 g/dL (3.5-5.2); Alkaline Phosphatase 87 IU/L (35-105); Anion Gap 15.2 (5-19); Aspartate Amino Transferase 29 U/L (0-32); Blood Urea Nitrogen 14 mg/dL (6-20); Calcium 8.2 mg/dL (8.5-10.5); Carbon Dioxide 20 mmol/L (22-29); Chloride 109 mmol/L (98-107); Ferritin 309 ng/mL (15-150); Globulin 1.9 g/dL (1.3-4.6); Glomerular Filtration Rate 76.2 mL/min (90-130); Glucose 87 mg/dL (65-115); Homocysteine 11.05; Iron 61 ug/dL (37-145); Magnesium 2.1 mg/dL (1.7-2.3); Osmolality Calculated 286 mOsm/kg (285-295); Percent Saturation 16.3 % (20-50); Potassium 4.2 mmol/L (3.5-5.1); Sodium 140 mmol/L (136-145); Thyroid Stimulating Hormone 1.34 uIU/mL (0.27-4.20); Total Bilirubin 0.4 mg/dL (0.15-1.2); Total Iron Binding Capacity 374 mcg/dl; Total Protein 6.2 g/dL (6.6-8.7); Unsaturated Iron Binding 313 ug/dL (112-347)
[2020-02-29 12:08] LABS: Free T4 Free Thyroxine 1.44 ng/dL (0.82-1.77); T3 Free 2.9 PG/ML (2.0-4.4)
[2020-02-29 13:07] LABS: Folate Level > 20.0 ng/mL (4.8-37.3)
[2020-03-01] MEDS: CUPRIC CHLORIDE IV (08:30)
[2020-03-01] MEDS: SODIUM CHLORIDE 0.9% IV (08:30)
[2020-03-02] MEDS: CUPRIC CHLORIDE IV (09:30)
[2020-03-02] MEDS: SODIUM CHLORIDE 0.9% IV (09:30)
[2020-03-03] MEDS: CUPRIC CHLORIDE IV (08:30)
[2020-03-03] MEDS: SODIUM CHLORIDE 0.9% IV (08:30)
[2020-03-04] MEDS: CUPRIC CHLORIDE IV (08:50)
[2020-03-04] MEDS: SODIUM CHLORIDE 0.9% IV (08:50)
[2020-03-04 09:21] LABS: Methylmalonic Acid 151 nmol/L (87-318)
--- NOTE | 2020-03-04 17:03 | ONC FU_ITS ---
Dr. Jim Patient Follow-Up Note Patient: Radha Contreras Unit #: [id number]: [id number] Dicatated By: Gerardo Jim M.D.Date of Visit:Feb 29, 2020 Onc Med Follow-up/Prog Note Chief Complaint: Anemia. History of Present Illness: This is a 50 year-old woman with chronic anemia. I had initially seen for iron deficiency anemia which developed in association with a previous gastric bypass procedure. I had treated her with parenteral iron dextran in 2003 and again in 2005. She also was on B12 replacement, and for a while she was getting Procrit injections, but that was stopped as of April 2007. I had seen her again in October of 2012 when she again required parenteral iron dextran. Shortly after that visit she was hospitalized at [facility] in [place] with bowel obstruction secondary to intussusception. She required multiple surgeries, including temporary ileostomy and placement of a PEG tube. She had associated sepsis with respiratory failure and with renal failure. She eventually did recover, but she was hospitalized again in September of 2015 for urinary tract infection and sepsis. She was found to be anemic again in January 2016. Her laboratory studies from 02/01/2016 included CBC showing hemoglobin 8.6 g with hematocrit 29%. The red cell indices were macrocytic with MCV 110 MCH 31. The white blood cell count was 4800 and the platelet count was 200,000. The serum iron was normal at 91 mcg/dL with transferrin saturation 23%. Ferritin was normal 140 ng/mL. Her CBC from 03/02/2016 showing hemoglobin down to 8.2 g with hematocrit 28%. At that time they folic acid level was normal at 6.9 ng/mL with B12 level in the low-normal range at 290 pg/mL. She was given a transfusion of 2 minutes of packed red blood cells on 03/08/2016. I had seen her for a follow-up visit on 04/02/2016. Her CBC at that time showed hemoglobin 9.3 g with white blood cell count 3800 and platelet count 146,000. Red cell indices were mildly macrocytic. Protein electrophoresis showed hypogammaglobulinemia. There is no monoclonal protein. The B12 level was in the low-normal range at 303 5 pg/mL with folate 6.30 ng/mL. The methylmalonic acid level was significantly elevated at 1511 nmol/L with homocysteine elevated at 18.7 nmol/L. She had been on monthly B12 replacement. Given those findings, her B12 injections were increased to weekly. She was given a single infusion of Injectafer on 06/08/2016. During subsequent follow-up, she remained mildly anemic. As of 10/16/2016 her hemoglobin was mildly decreased but stable at 10.1 g with mildly macrocytic red cell indices. Her serum iron studies showed transferrin saturation just slightly low at 17% with ferritin 98 ng/mL. She underwent bone marrow aspiration/biopsy on 10/31/2016. It showed normal cellularity of 35-40%. There was limited dyserythropoiesis involving less than 5% of the population. Blasts were not increased. There was no evidence of an infiltrative process. Iron stores were 1-2+/4. The flow cytometry was unremarkable. The chromosome analysis was normal, and the FISH panel for MDS was unrevealing. Overall, the findings were nondiagnostic. Her repeat CBC on 12/07/2016 showed hemoglobin down to 8.7 g with white blood cell count 3600 and platelet count 208,000. The serum iron was 60 mcg/dL with transferrin saturation 13.4%. Ferritin level was 145 ng/mL. Homocysteine level was elevated at 18.3 ???mol per liter. The methylmalonic acid level at that point was still elevated at 786/378 nmol/L despite the fact that she been receiving B12 injections weekly. With the low transferrin saturation, she was given an additional infusion of Injectafer on 12/11/2016. In addition, she was instructed to take her B12 injections daily for 7 days, and she then continued it weekly. Her follow-up CBC on 12/25/2016 showed just a slight increase in her hemoglobin, to 9.5 g with her MCV slightly high but stable at 103. During subsequent follow-up, her methylmalonic acid level remained elevated despite having weekly B12 injections, and she remained mildly anemic. On 04/18/2017 she presented to the emergency room with pain in the lower abdominal area. Her CT abdomen/pelvis showed twisting of the sigmoid colon and associated mesentery with mild bowel distention but without gross bowel dilatation. The findings were felt to be suspicious for internal hernia. She was known to have a large amount of colonic stool. She was transferred to the [facility] for further management, and she subsequently was admitted to the hospital there. Her obstructive symptoms resolved within a few days. She was, however, also found to have evidence of rectal prolapse, and she then underwent perineal proctectomy. As of 06/04/2017 her CBC showed decline in her hemoglobin to 8.8 g with MCV 102.6. The white blood cell count was 3300 and the platelet count was 284,000. The uncorrected reticulocyte count was 1.4%. Her chem profile showed normal renal function with BUN 15 and creatinine 0.7 mg/dL. Liver enzymes were normal. The serum iron studies showed low transferrin saturation at 15.3%, but with ferritin slightly high at 295 ng/mL. B12 level was normal at 471 pg/mL with folate level 7.20 ng/mL. Methylmalonic acid level was still elevated at 977/378 nmol/L. Her serum copper level was found to be low at 47 g/dL. She initially was started on oral copper supplementation. She then had further follow-up through her surgeon in [place], and there was reportedly no evidence of response to the oral copper supplement. She was then referred to a ict help desk officer there in [place] and in August or September 2017, and she subsequently began copper infusions daily for 5 days every 6 weeks. During her further follow-up, she also developed symptomatic hypocalcemia, and she was found to have severe vitamin D deficiency. She has since then been receiving weekly infusions of calcium gluconate and a multivitamin preparation along with her B12 replacement and her copper infusions every 6 weeks. Her other medical illnesses include hypertension and hypothyroidism. She has had chronic fatigue and chronic pain, and she has neurogenic bladder. She has history of smoking 1 pack of cigarettes daily for 12 years. She quit smoking in 2013. INTERIM HISTORY: She is seen for a scheduled visit. She has been feeling pretty good. Her energy is not too bad, though she is tired by the end of the day. Her ECOG score is 1. Her appetite has been a little better. Her weight is stable. She occasionally has a slight fever at night. She occasionally has sweating at night. She does not complain of shortness of breath, cough, or chest pain. She has not been having as much nausea. Bowel function is the same. She self catheterizes for urinary retention. She has chronic pain, which is tolerable. She sometimes has headache, and she occasionally has dizziness. She has numbness in her feet. Medications: Benadryl 2 - 4 (25 mg) Tablet Oral q 4 hours PRN, Cyanocobalamin 1 mL (of 1000 mcg/mL) Injection q 1 week for 12 times, Cytomel 1 (50 mcg) Tablet Oral daily, Folic Acid 1 (1 mg) Tablet Oral daily, Promethazine HCl 1 - 2 (25 mg) Tablet Oral q 4 hours PRN, Synthroid 5 (300 mcg) Tablet Oral daily, TraMADol HCl 2 Tablet (of 50 mg) Oral q 6 hours PRN, Tylenol 2 (325 mg) Tablet Oral q 4 hours PRN, Zofran 1 (4 mg) Tablet Oral PRN Allergies: Erythromycin, Methylporafen, Morphine Sulfate, neosporin, Stadol, and Versed. Review of Systems: Constitutional - Her energy is not too bad, but she does have fatigue. She is still able to work. Appetite has been a little better. Her weight is stable. She occasionally has a slight fever at night. She occasionally has night sweating. ECOG score is 1, ENMT - No sinus congestion/drainage. No mouth sores. No sore throat or difficulty swallowing, Hematologic/Lymphatic - She has easy bruising, Respiratory - No shortness of breath. No cough. No pleuritic pain or hemoptysis, Cardiovascular - No angina pain. No palpitations, Gastrointestinal - She has not had as much nausea. No heartburn or acid reflux. Her bowel function is the same. No blood in the stool or black stools, Genitourinary (F) - She has indwelling catheter, Musculoskeletal - She has chronic pain. It is tolerable, Integumentary - , Neurologic - She sometimes has headache. She occasionally has dizziness. She has numbness in her feet. No other focal neurologic symptoms, Psychiatric - No anxiety or depression. She does not sleep well. Vital Signs: Performed on Feb 29, 2020 10:30 Height - 63.00 in Weight - 145.0 lbs (LOW) BSA - 1.69 sq.m BMI - 25.69 Temperature - 98.0 F (LOW) Pulse - 68 /min Respiration - 18 /min BP - 114/67 mm(hg) O2 Sat - 96 % Pain - 0 Physical Examination: Constitutional - She looks pretty good generally, Eyes - Sclerae nonicteric. Conjunctivae clear, ENMT - No lesions noted in the oral cavity, Hematologic/Lymphatic - No cervical, clavicular, or axillary adenopathy, Respiratory - Lungs are clear, Cardiovascular - Heart rhythm is regular. There is no murmur, gallop, or rub noted, Abdomen - Soft. Liver and spleen are not enlarged. There is no abdominal mass or ascites noted. There is no inguinal adenopathy, Extremities - No edema, Neurologic - No focal neurologic deficits noted. Lab/Imaging: Test performed on Feb 29, 2020 10:12 Ferritin 309 ng/mL Folate, Serum > 20.0 ng/mL Homocysteine 11.05 umol/L Iron 61 mcg/dL Magnesium 2.1 mg/dL Methylmalonic Acid 151 nmol/L Sodium 140 mmol/L T3, Free 2.9 PG/ML T4, Free 1.44 ng/dL TSH 1.34 uIU/mL Vitamin D (25-Hydroxy), Total 6 ng/mL Iron Binding Capacity (TIBC) 374 mcg/dl Potassium 4.2 mmol/L % Iron Saturation 16.3 % Chloride 109 mmol/L CO2 20 mmol/L UIBC 313 mcg/dL Anion Gap 15.2 BUN 14 mg/dL Creatinine 0.8 mg/dL Cr Clearance (Est) 85.8900 mL/min eGFR 76.2 mL/min Glucose 87 mg/dL Calcium 8.2 mg/dL Osmolality - Calculated 286 mOsm/kg Protein, Total 6.2 g/dL Albumin 4.3 g/dL Globulin 1.9 g/dL Bilirubin, Total 0.4 mg/dL ALT (SGPT) 29 U/L AST (SGOT) 29 U/L Alkaline Phosphatase 87 IU/L WBC 5.1 10 3/uL RBC 3.02 10 6/uL HGB 9.8 g/dL HCT 32.1 % MCV 106.3 fL MCH 32.5 pg MCHC 30.5 g/dL RDW 13.0 % Platelet Count 192 10 3/cmm MPV 10.3 fL Neutrophils 3.45 10 3/uL Lymphocytes 1.1 10 3/uL Monocytes 0.5 10 3/uL Eosinophils 0.1 10 3/uL Basophils 0.0 10 3/uL Neutrophil % 67.6 % Lymphocyte % 21.4 % Monocyte % 8.8 % Eosinophil % 1.4 % Basophils % 0.8 % NRBC % 0 % Impression: 1. Patient with recurrent iron deficiency anemia which developed following a gastric bypass procedure in 2001. She was given parenteral iron replacement with iron dextran in 2003, in 2005, and in October 2012. 2. She also had associated B12 deficiency. In March 2016 she was found to have a significantly elevated methylmalonic acid level despite monthly B12 injections. 3. Her clinical course was complicated by intussusception with bowel obstruction in October 2012. She had associated sepsis with respiratory failure and renal failure. She required multiple surgeries which included extensive bowel resection, temporary ileostomy, and placement of PEG tube. 4. She has had nutritional deficiencies related to short gut syndrome . 5. She has had chronic back pain and neurogenic bladder. During her follow-up she has had macrocytic anemia with elevated methylmalonic acid level which has persisted despite B12 replacement. Her bone marrow aspiration/biopsy on 10/31/2016 showed normal cellular marrow with no diagnostic findings. Iron stores were 1-2+. The chromosome analysis was normal, and the FISH panel for MDS was unrevealing. She subsequently was found to have copper deficiency, and she then began IV copper infusions daily for 5 days every 6 weeks. During this time she also has continued to receive parenteral iron replacement with Injectafer as needed. She had some improvement in her activity tolerance after starting the copper infusions. As of May 2018 her methylmalonic acid level had come down to normal, but she continued to have macrocytic anemia. With her short gut syndrome, she also continued to have a mildly elevated TSH level despite taking high dose of Synthroid. In August 2018 she presented with symptomatic hypocalcemia, and her 25-hydroxy vitamin D level also was found to be very low. She then started weekly infusions of calcium gluconate and a multivitamin preparation. She continued IV copper infusions every 6 weeks, and she also continued her B12 replacement. She received parenteral iron replacement with Injectafer again in May 2019. During follow-up she remained mildly anemic. She also continued to have a very low vitamin D level despite IV replacement therapy. Her TSH level has been mildly elevated, but the current level is normal. Her overall clinical status had initially improved with the replacement therapy. She has since then remained stable. Plan: She will continue her weekly infusions of calcium gluconate and multivitamin. She will continue copper replacement daily for 5 days repeated every 6 weeks. She also will continue B12 injections weekly. I will see her again in 3 months. Signed By: Gerardo Jim M.D. <<Signature on File>>
[2020-03-06 17:17] LABS: Copper Level 52 mcg/dL (70-175)
[2020-03-07] MEDS: cyanocobalamin 1,000 mcg/mL SDV 1000 MCG SUBCUT (09:10)
[2020-03-14] MEDS: cyanocobalamin 1,000 mcg/mL SDV 1000 MCG SUBCUT (09:15)
== END 2020-03-16 23:59 | disposition home or self-care (01) ==
LOC: ONCMED 05:42
PROVIDERS: PCP Family Medicine; Visit Provider Internal Medicine Medical Oncology
DX: K91.2 Postsurgical malabsorption, not elsewhere classified (principal); E61.0 Copper deficiency; D51.9 Vitamin B12 deficiency anemia, unspecified; D50.9 Iron deficiency anemia, unspecified
CPT/HCPCS: 80053; 82306; 82525; 82728; 82746; 83090; 83540; 83550; 83735; 83921; 84439; 84443; 84481; 85025; 96365; 96372; 99214; J0610; J3420; J3490; J7050

== ENCOUNTER 2020-04-15 05:39 | Outpatient (RCR) | payer OTHER, SELFPAY ==
[2020-03-21] MEDS: cyanocobalamin 1,000 mcg/mL SDV 1000 MCG SUBCUT (09:40)
[2020-03-28] MEDS: cyanocobalamin 1,000 mcg/mL SDV 1000 MCG SUBCUT (09:00)
[2020-04-04] MEDS: cyanocobalamin 1,000 mcg/mL SDV 1000 MCG SUBCUT (09:40)
[2020-04-11] MEDS: cyanocobalamin 1,000 mcg/mL SDV 1000 MCG SUBCUT (09:00)
[2020-04-11 09:30] LABS: Eosinophils # 0.1 10^3/uL (0.0-0.8); Eosinophils % 2.7 %; Hematocrit 32.3 % (37.0-47.0); Hemoglobin 9.9 g/dL (11.5-15.3); Lymphocytes # 1.4 10^3/uL (0.8-4.8); Lymphocytes % 33.1 %; Mean Corpuscular HGB Conc 30.7 g/dL (30.0-36.0); Mean Corpuscular Hemoglobin 32.1 pg (28.0-34.0); Mean Corpuscular Volume 104.9 fL (81-99); Mean Platelet Volume 10.2 fL (7.4-10.4); Monocytes # 0.5 10^3/uL (0.2-0.9); Monocytes % 10.9 %; Neutrophils # 2.14 10^3/uL (1.8-7.7); Neutrophils % 52.1 %; Nucleated Red Blood Cells % 0 %; Platelet Count 195 10^3/cmm (130-400); Red Blood Count 3.08 10^6/uL (4.1-5.3); Red Cell Distribution Width 12.2 % (12.1-15.1); White Blood Count 4.1 10^3/uL (4.0-10.0)
[2020-04-11 09:55] LABS: Alanine Aminotransferase 23 U/L (0-33); Albumin Level 4.2 g/dL (3.5-5.2); Alkaline Phosphatase 93 IU/L (35-105); Anion Gap 11.3 (5-19); Aspartate Amino Transferase 23 U/L (0-32); Blood Urea Nitrogen 14 mg/dL (6-20); Calcium 9.1 mg/dL (8.5-10.5); Carbon Dioxide 24 mmol/L (22-29); Chloride 104 mmol/L (98-107); Globulin 1.9 g/dL (1.3-4.6); Glomerular Filtration Rate 66.5 mL/min (90-130); Glucose 85 mg/dL (65-115); Osmolality Calculated 280 mOsm/kg (285-295); Potassium 4.3 mmol/L (3.5-5.1); Sodium 135 mmol/L (136-145); Total Bilirubin 0.3 mg/dL (0.15-1.2); Total Protein 6.1 g/dL (6.6-8.7)
[2020-04-12] MEDS: SODIUM CHLORIDE 0.9% IV (09:00)
[2020-04-12] MEDS: CUPRIC CHLORIDE IV (09:00)
[2020-04-13] MEDS: CUPRIC CHLORIDE IV (09:15)
[2020-04-13] MEDS: SODIUM CHLORIDE 0.9% IV (09:15)
[2020-04-14] MEDS: SODIUM CHLORIDE 0.9% IV (09:00)
[2020-04-14] MEDS: CUPRIC CHLORIDE IV (09:00)
[2020-04-15] MEDS: SODIUM CHLORIDE 0.9% IV (09:00)
[2020-04-15] MEDS: CUPRIC CHLORIDE IV (09:00)
== END 2020-04-16 23:59 | disposition home or self-care (01) ==
LOC: ONCMED 05:39
PROVIDERS: PCP Family Medicine; Visit Provider Internal Medicine Medical Oncology
DX: K91.2 Postsurgical malabsorption, not elsewhere classified (principal); E61.0 Copper deficiency; D51.8 Other vitamin B12 deficiency anemias; D50.8 Other iron deficiency anemias
CPT/HCPCS: 80053; 85025; 96360; 96365; 96372; J0610; J3420; J3490; J7050

== ENCOUNTER 2020-05-16 05:14 | Outpatient (RCR) | payer OTHER, SELFPAY ==
[2020-04-18] MEDS: cyanocobalamin 1,000 mcg/mL SDV 1000 MCG SUBCUT (09:05)
[2020-04-25] MEDS: cyanocobalamin 1,000 mcg/mL SDV 1000 MCG SUBCUT (08:35)
[2020-05-02] MEDS: cyanocobalamin 1,000 mcg/mL SDV 1000 MCG SUBCUT (08:40)
[2020-05-09] MEDS: cyanocobalamin 1,000 mcg/mL SDV 1000 MCG SUBCUT (09:00)
[2020-05-16] MEDS: cyanocobalamin 1,000 mcg/mL SDV 1000 MCG SUBCUT (09:40)
[2020-05-16 10:16] LABS: Basophils % 0.9 %; Eosinophils # 0.1 10^3/uL (0.0-0.8); Eosinophils % 2.4 %; Hematocrit 31.7 % (37.0-47.0); Hemoglobin 9.9 g/dL (11.5-15.3); Lymphocytes # 1.4 10^3/uL (0.8-4.8); Lymphocytes % 30.2 %; Mean Corpuscular HGB Conc 31.2 g/dL (30.0-36.0); Mean Corpuscular Volume 102.6 fL (81-99); Mean Platelet Volume 10.5 fL (7.4-10.4); Monocytes # 0.4 10^3/uL (0.2-0.9); Monocytes % 9.6 %; Neutrophils # 2.62 10^3/uL (1.8-7.7); Neutrophils % 56.9 %; Nucleated Red Blood Cells % 0 %; Platelet Count 180 10^3/cmm (130-400); Red Blood Count 3.09 10^6/uL (4.1-5.3); Red Cell Distribution Width 12.5 % (12.1-15.1); White Blood Count 4.6 10^3/uL (4.0-10.0)
[2020-05-16 10:47] LABS: 25 Hydroxy Vitamin D 6 ng/mL (30-100); Alanine Aminotransferase 23 U/L (0-33); Alkaline Phosphatase 92 IU/L (35-105); Aspartate Amino Transferase 23 U/L (0-32); Blood Urea Nitrogen 15 mg/dL (6-20); Calcium 8.8 mg/dL (8.5-10.5); Carbon Dioxide 22 mmol/L (22-29); Chloride 107 mmol/L (98-107); Ferritin 308 ng/mL (15-150); Globulin 1.9 g/dL (1.3-4.6); Glomerular Filtration Rate 88.9 mL/min (90-130); Glucose 91 mg/dL (65-115); Iron 67 ug/dL (37-145); Magnesium 1.9 mg/dL (1.7-2.3); Osmolality Calculated 288 mOsm/kg (285-295); Percent Saturation 17.9 % (20-50); Sodium 139 mmol/L (136-145); Thyroid Stimulating Hormone 0.02 uIU/mL (0.27-4.20); Total Bilirubin 0.2 mg/dL (0.15-1.2); Total Iron Binding Capacity 374 mcg/dl; Total Protein 5.9 g/dL (6.6-8.7); Unsaturated Iron Binding 307 ug/dL (112-347)
[2020-05-19 09:19] LABS: Methylmalonic Acid 165 nmol/L (87-318)
[2020-05-19 11:24] LABS: Copper Level 62 mcg/dL (70-175)
== END 2020-05-16 23:59 | disposition home or self-care (01) ==
LOC: ONCMED 05:14
PROVIDERS: PCP Family Medicine; Visit Provider Internal Medicine Medical Oncology
DX: K91.2 Postsurgical malabsorption, not elsewhere classified (principal); E61.0 Copper deficiency; D51.9 Vitamin B12 deficiency anemia, unspecified; D50.9 Iron deficiency anemia, unspecified
CPT/HCPCS: 80053; 82306; 82525; 82728; 83540; 83550; 83735; 83921; 84439; 84443; 84481; 85025; 96365; 96372; J0610; J3420; J7050

== ENCOUNTER 2020-06-13 08:42 | Outpatient (RCR) | payer OTHER, SELFPAY ==
[2020-05-23] MEDS: cyanocobalamin 1,000 mcg/mL SDV 1000 MCG SUBCUT (09:40)
[2020-05-24] MEDS: CUPRIC CHLORIDE IV (09:30)
[2020-05-24] MEDS: SODIUM CHLORIDE 0.9% IV (09:30)
[2020-05-25] MEDS: CUPRIC CHLORIDE IV (09:00)
[2020-05-25] MEDS: SODIUM CHLORIDE 0.9% IV (09:00)
[2020-05-26] MEDS: SODIUM CHLORIDE 0.9% IV (08:40)
[2020-05-26] MEDS: CUPRIC CHLORIDE IV (08:40)
[2020-05-27] MEDS: CUPRIC CHLORIDE IV (08:56)
[2020-05-27] MEDS: SODIUM CHLORIDE 0.9% IV (08:56)
[2020-05-30] MEDS: cyanocobalamin 1,000 mcg/mL SDV 1000 MCG SUBCUT (09:29)
[2020-06-06] MEDS: cyanocobalamin 1,000 mcg/mL SDV 1000 MCG SUBCUT (09:05)
== END 2020-06-16 23:59 | disposition home or self-care (01) ==
LOC: ONCMED 08:42
PROVIDERS: PCP Family Medicine; Visit Provider Internal Medicine Medical Oncology
DX: K91.2 Postsurgical malabsorption, not elsewhere classified (principal); D51.8 Other vitamin B12 deficiency anemias; E61.0 Copper deficiency; D50.8 Other iron deficiency anemias; D64.89 Other specified anemias
CPT/HCPCS: 96365; 96372; 96523; J0610; J3420; J3490; J7050

== ENCOUNTER 2020-07-11 05:40 | Outpatient (RCR) | payer OTHER, SELFPAY ==
[2020-06-20] MEDS: cyanocobalamin 1,000 mcg/mL SDV 1000 MCG SUBCUT (09:35)
[2020-06-27] MEDS: cyanocobalamin 1,000 mcg/mL SDV 1000 MCG SUBCUT (09:30)
[2020-07-05] MEDS: cyanocobalamin 1,000 mcg/mL SDV 1000 MCG SUBCUT (09:20)
[2020-07-05] MEDS: SODIUM CHLORIDE 0.9% IV (09:20)
[2020-07-05] MEDS: CUPRIC CHLORIDE IV (09:20)
[2020-07-06] MEDS: SODIUM CHLORIDE 0.9% IV (08:40)
[2020-07-06] MEDS: CUPRIC CHLORIDE IV (08:40)
[2020-07-07] MEDS: SODIUM CHLORIDE 0.9% IV (08:40)
[2020-07-07] MEDS: CUPRIC CHLORIDE IV (08:40)
[2020-07-11] MEDS: cyanocobalamin 1,000 mcg/mL SDV 1000 MCG SUBCUT (09:20)
== END 2020-07-17 23:59 | disposition home or self-care (01) ==
LOC: ONCMED 05:40
PROVIDERS: PCP Family Medicine; Visit Provider Internal Medicine Medical Oncology
DX: K91.2 Postsurgical malabsorption, not elsewhere classified (principal); E61.0 Copper deficiency; D51.9 Vitamin B12 deficiency anemia, unspecified; D50.9 Iron deficiency anemia, unspecified
CPT/HCPCS: 96365; 96372; J0610; J3420; J3490; J7050

== ENCOUNTER 2020-08-08 05:31 | Outpatient (RCR) | payer OTHER, SELFPAY ==
[2020-07-18] MEDS: cyanocobalamin 1,000 mcg/mL SDV 1000 MCG SUBCUT (09:00)
[2020-07-25] MEDS: cyanocobalamin 1,000 mcg/mL SDV 1000 MCG SUBCUT (09:10)
[2020-08-04] MEDS: cyanocobalamin 1,000 mcg/mL SDV 1000 MCG SUBCUT (09:50)
[2020-08-08] MEDS: cyanocobalamin 1,000 mcg/mL SDV 1000 MCG SUBCUT (09:30)
== END 2020-08-14 23:59 | disposition home or self-care (01) ==
LOC: ONCMED 05:31
PROVIDERS: PCP Family Medicine; Visit Provider Internal Medicine Medical Oncology
DX: K91.2 Postsurgical malabsorption, not elsewhere classified (principal); E61.0 Copper deficiency; D51.9 Vitamin B12 deficiency anemia, unspecified; D50.9 Iron deficiency anemia, unspecified
CPT/HCPCS: 96365; 96372; J0610; J3420; J7050

== ENCOUNTER 2020-09-12 05:22 | Outpatient (RCR) | payer OTHER, SELFPAY ==
[2020-08-15] MEDS: cyanocobalamin 1,000 mcg/mL SDV 1000 MCG SUBCUT (09:30)
[2020-08-15 09:41] LABS: Hematocrit 33.7 % (37.0-47.0); Hemoglobin 10.4 g/dL (11.5-15.3); Mean Corpuscular HGB Conc 30.9 g/dL (30.0-36.0); Mean Corpuscular Hemoglobin 30.9 pg (28.0-34.0); Mean Platelet Volume 10.2 fL (7.4-10.4); Platelet Count 187 10^3/cmm (130-400); Red Blood Count 3.37 10^6/uL (4.1-5.3); Red Cell Distribution Width 12.1 % (12.1-15.1); White Blood Count 4.1 10^3/uL (4.0-10.0)
[2020-08-15 10:25] LABS: Alanine Aminotransferase 23 U/L (0-33); Alkaline Phosphatase 96 IU/L (35-105); Anion Gap 13.9 (5-19); Aspartate Amino Transferase 24 U/L (0-32); Blood Urea Nitrogen 22 mg/dL (6-20); Calcium 8.6 mg/dL (8.5-10.5); Carbon Dioxide 21 mmol/L (22-29); Chloride 106 mmol/L (98-107); Globulin 2.3 g/dL (1.3-4.6); Glomerular Filtration Rate 66.5 mL/min (90-130); Glucose 78 mg/dL (65-115); Osmolality Calculated 286 mOsm/kg (285-295); Potassium 3.9 mmol/L (3.5-5.1); Sodium 137 mmol/L (136-145); Thyroid Stimulating Hormone 0.01 uIU/mL (0.27-4.20); Total Bilirubin 0.3 mg/dL (0.15-1.2); Total Protein 6.3 g/dL (6.6-8.7)
[2020-08-15 11:39] LABS: Absolute Eosinophils 0.2 10^3/cmm (0.0-0.7); Absolute Segmented Neutrophil 2.4 10/cmm (1.6-7.1); Eosinophils 6 %; Lymphocytes 29 %; Monocytes Absolute 0.2 10^3/cmm (0.1-0.6); Segmented Neutrophils 59 %; Total Cells Counted 100 (0-100)
[2020-08-15 11:40] LABS: Absolute Neutrophil 2.4 10^3/cmm (1.4-6.5); Platelet Estimate Normal (Normal)
[2020-08-16] MEDS: SODIUM CHLORIDE 0.9% IV (09:30)
[2020-08-16] MEDS: cyanocobalamin 1,000 mcg/mL SDV 1000 MCG SUBCUT (09:30)
[2020-08-16] MEDS: CUPRIC CHLORIDE IV (09:30)
[2020-08-17] MEDS: SODIUM CHLORIDE 0.9% IV (08:40)
[2020-08-17] MEDS: CUPRIC CHLORIDE IV (08:40)
[2020-08-18] MEDS: SODIUM CHLORIDE 0.9% IV (08:30)
[2020-08-18] MEDS: CUPRIC CHLORIDE IV (08:30)
[2020-08-18 16:00] VITALS: BP 112/76; PULSE 60; RESP 18; TEMP 36.6; O2SAT 98
[2020-08-19] MEDS: CUPRIC CHLORIDE IV (10:30)
[2020-08-19] MEDS: SODIUM CHLORIDE 0.9% IV (10:30)
[2020-08-22] MEDS: cyanocobalamin 1,000 mcg/mL SDV 1000 MCG SUBCUT (08:45)
[2020-08-29] MEDS: cyanocobalamin 1,000 mcg/mL SDV 1000 MCG SUBCUT (09:30)
[2020-09-05] MEDS: cyanocobalamin 1,000 mcg/mL SDV 1000 MCG SUBCUT (09:15)
[2020-09-12] MEDS: cyanocobalamin 1,000 mcg/mL SDV 1000 MCG SUBCUT (09:55)
== END 2020-09-14 23:59 | disposition home or self-care (01) ==
LOC: ONCMED 05:22
PROVIDERS: PCP Family Medicine; Visit Provider Internal Medicine Medical Oncology
DX: K91.2 Postsurgical malabsorption, not elsewhere classified (principal); E61.0 Copper deficiency; D51.9 Vitamin B12 deficiency anemia, unspecified; D50.9 Iron deficiency anemia, unspecified
CPT/HCPCS: 80053; 84443; 85007; 85027; 96365; 96367; 96372; J0610; J3420; J3490; J7050

== ENCOUNTER 2020-10-10 05:30 | Outpatient (RCR) | payer OTHER, SELFPAY ==
[2020-09-19] MEDS: cyanocobalamin 1,000 mcg/mL SDV 1000 MCG IM (08:30)
[2020-09-26] MEDS: cyanocobalamin 1,000 mcg/mL SDV 1000 MCG SUBCUT (13:40)
[2020-09-27] MEDS: SODIUM CHLORIDE 0.9% IV (08:45)
[2020-09-27] MEDS: CUPRIC CHLORIDE IV (08:45)
[2020-09-28] MEDS: CUPRIC CHLORIDE IV (09:05)
[2020-09-28] MEDS: SODIUM CHLORIDE 0.9% IV (09:05)
[2020-09-29] MEDS: SODIUM CHLORIDE 0.9% IV (09:05)
[2020-09-29] MEDS: CUPRIC CHLORIDE IV (09:05)
[2020-09-30] MEDS: CUPRIC CHLORIDE IV (08:30)
[2020-09-30] MEDS: SODIUM CHLORIDE 0.9% IV (08:30)
[2020-10-03] MEDS: cyanocobalamin 1,000 mcg/mL SDV 1000 MCG SUBCUT (08:55)
[2020-10-10] MEDS: cyanocobalamin 1,000 mcg/mL SDV 1000 MCG SUBCUT (09:20)
== END 2020-10-14 23:59 | disposition home or self-care (01) ==
LOC: ONCMED 05:30
PROVIDERS: PCP Family Medicine; Visit Provider Internal Medicine Medical Oncology
DX: K91.2 Postsurgical malabsorption, not elsewhere classified (principal); E61.0 Copper deficiency; D51.9 Vitamin B12 deficiency anemia, unspecified; D50.9 Iron deficiency anemia, unspecified
CPT/HCPCS: 96365; 96368; 96372; 96523; J0610; J3420; J3490; J7050

== ENCOUNTER 2020-11-07 05:46 | Outpatient (RCR) | payer OTHER, SELFPAY ==
[2020-10-17] MEDS: cyanocobalamin 1,000 mcg/mL SDV 1000 MCG SUBCUT (09:37)
[2020-10-24] MEDS: cyanocobalamin 1,000 mcg/mL SDV 1000 MCG SUBCUT (09:40)
[2020-10-31] MEDS: cyanocobalamin 1,000 mcg/mL SDV 1000 MCG SUBCUT (09:30)
[2020-11-07] MEDS: cyanocobalamin 1,000 mcg/mL SDV 1000 MCG SUBCUT (09:45)
== END 2020-11-14 23:59 | disposition home or self-care (01) ==
LOC: ONCMED 05:46
PROVIDERS: PCP Family Medicine; Visit Provider Internal Medicine Medical Oncology
DX: D50.9 Iron deficiency anemia, unspecified (principal); D51.9 Vitamin B12 deficiency anemia, unspecified; K91.2 Postsurgical malabsorption, not elsewhere classified
CPT/HCPCS: 96365; 96368; 96372; J0610; J3420; J3490; J7050

== ENCOUNTER 2020-12-12 05:43 | Outpatient (RCR) | payer OTHER, SELFPAY ==
[2020-11-15] MEDS: cyanocobalamin 1,000 mcg/mL SDV 1000 MCG SUBCUT (10:00)
[2020-11-21] MEDS: cyanocobalamin 1,000 mcg/mL SDV 1000 MCG SUBCUT (09:30)
[2020-11-28] MEDS: cyanocobalamin 1,000 mcg/mL SDV 1000 MCG IM (15:09)
[2020-12-05] MEDS: cyanocobalamin 1,000 mcg/mL SDV 1000 MCG IM (09:30)
[2020-12-12] MEDS: cyanocobalamin 1,000 mcg/mL SDV 1000 MCG SUBCUT (08:45)
== END 2020-12-14 23:59 | disposition home or self-care (01) ==
LOC: ONCMED 05:43
PROVIDERS: PCP Family Medicine; Visit Provider Internal Medicine Medical Oncology
DX: E61.0 Copper deficiency (principal); K91.2 Postsurgical malabsorption, not elsewhere classified; D51.9 Vitamin B12 deficiency anemia, unspecified; D50.9 Iron deficiency anemia, unspecified; D64.89 Other specified anemias; Z79.899 Other long term (current) drug therapy
CPT/HCPCS: 96365; 96368; 96372; J0610; J3420; J3490; J7050

== ENCOUNTER 2021-01-09 08:35 | Outpatient (RCR) | payer OTHER, SELFPAY ==
[2020-12-20] MEDS: cyanocobalamin 1,000 mcg/mL SDV 1000 MCG SUBCUT (09:00)
[2020-12-26] MEDS: cyanocobalamin 1,000 mcg/mL SDV 1000 MCG SUBCUT (09:15)
[2021-01-02 10:00] LABS: Basophils # 0.1 10^3/uL (0.0-0.1); Basophils % 0.8 %; Eosinophils # 0.1 10^3/uL (0.0-0.8); Eosinophils % 1.7 %; Hematocrit 33.5 % (37.0-47.0); Hemoglobin 10.3 g/dL (11.5-15.3); Lymphocytes # 1.9 10^3/uL (0.8-4.8); Lymphocytes % 32.4 %; Mean Corpuscular HGB Conc 30.7 g/dL (30.0-36.0); Mean Corpuscular Hemoglobin 31.7 pg (28.0-34.0); Mean Corpuscular Volume 103.1 fL (81-99); Mean Platelet Volume 10.5 fL (7.4-10.4); Monocytes # 0.6 10^3/uL (0.2-0.9); Monocytes % 10.5 %; Neutrophils # 3.26 10^3/uL (1.8-7.7); Neutrophils % 54.6 %; Nucleated Red Blood Cells % 0 %; Platelet Count 183 10^3/cmm (130-400); Red Blood Count 3.25 10^6/uL (4.1-5.3); Red Cell Distribution Width 12.5 % (12.1-15.1)
[2021-01-02 11:44] LABS: 25 Hydroxy Vitamin D 17 ng/mL (30-100); Alanine Aminotransferase 25 U/L (0-33); Alkaline Phosphatase 91 IU/L (35-105); Anion Gap 13.8 (5-19); Aspartate Amino Transferase 28 U/L (0-32); Blood Urea Nitrogen 16 mg/dL (6-20); Calcium 8.2 mg/dL (8.5-10.5); Carbon Dioxide 21 mmol/L (22-29); Chloride 101 mmol/L (98-107); Ferritin 120 ng/mL (15-150); Globulin 1.8 g/dL (1.3-4.6); Glomerular Filtration Rate 88.9 mL/min (90-130); Glucose 77 mg/dL (65-115); Iron 82 ug/dL (37-145); Lactate Dehydrogenase 268 U/L (135-214); Magnesium 1.8 mg/dL (1.7-2.3); Osmolality Calculated 274 mOsm/kg (285-295); Potassium 3.8 mmol/L (3.5-5.1); Sodium 132 mmol/L (136-145); Thyroid Stimulating Hormone 0.03 uIU/mL (0.27-4.20); Total Bilirubin 0.3 mg/dL (0.15-1.2); Total Iron Binding Capacity 408 mcg/dl; Total Protein 5.8 g/dL (6.6-8.7); Unsaturated Iron Binding 326 ug/dL (112-347); Vitamin B12 920 pg/mL (232-1245)
[2021-01-02 11:50] LABS: Free T4 Free Thyroxine 1.79 ng/dL (0.82-1.77); T3 Free 2.8 PG/ML (2.0-4.4)
[2021-01-03] MEDS: cyanocobalamin 1,000 mcg/mL SDV 1000 MCG SUBCUT (09:00)
--- NOTE | 2021-01-03 18:14 | ONC FU_ITS ---
Dr. Jim Patient Follow-Up Note Patient: Radha Contreras Unit #: [id number]: 1970 Dicatated By: Gerardo Jim M.D.Date of Visit:Jan 02, 2021 Onc Med Follow-up/Prog Note Chief Complaint: Anemia. History of Present Illness: This is a 50 year-old woman with chronic anemia, multifactorial. I had initially seen for iron deficiency anemia which developed in association with a previous gastric bypass procedure. I had treated her with parenteral iron dextran in 2003 and again in 2005. She also was on B12 replacement, and for a while she was getting Procrit injections, but that was stopped as of April 2007. I had seen her again in October of 2012 when she again required parenteral iron dextran. Shortly after that visit she was hospitalized at [facility] in [place] with bowel obstruction secondary to intussusception. She required multiple surgeries, including temporary ileostomy and placement of a PEG tube. She had associated sepsis with respiratory failure and with renal failure. She eventually did recover, but she was hospitalized again in September of 2015 for urinary tract infection and sepsis. She was found to be anemic again in January 2016. Her laboratory studies from 02/01/2016 included CBC showing hemoglobin 8.6 g with hematocrit 29%. The red cell indices were macrocytic with MCV 110 MCH 31. The white blood cell count was 4800 and the platelet count was 200,000. The serum iron was normal at 91 mcg/dL with transferrin saturation 23%. Ferritin was normal 140 ng/mL. Her CBC from 03/02/2016 showing hemoglobin down to 8.2 g with hematocrit 28%. At that time they folic acid level was normal at 6.9 ng/mL with B12 level in the low-normal range at 290 pg/mL. She was given a transfusion of 2 minutes of packed red blood cells on 03/08/2016. I had seen her for a follow-up visit on 04/02/2016. Her CBC at that time showed hemoglobin 9.3 g with white blood cell count 3800 and platelet count 146,000. Red cell indices were mildly macrocytic. Protein electrophoresis showed hypogammaglobulinemia. There is no monoclonal protein. The B12 level was in the low-normal range at 303 5 pg/mL with folate 6.30 ng/mL. The methylmalonic acid level was significantly elevated at 1511 nmol/L with homocysteine elevated at 18.7 nmol/L. She had been on monthly B12 replacement. Given those findings, her B12 injections were increased to weekly. She was given a single infusion of Injectafer on 06/08/2016. During subsequent follow-up, she remained mildly anemic. As of 10/16/2016 her hemoglobin was mildly decreased but stable at 10.1 g with mildly macrocytic red cell indices. Her serum iron studies showed transferrin saturation just slightly low at 17% with ferritin 98 ng/mL. She underwent bone marrow aspiration/biopsy on 10/31/2016. It showed normal cellularity of 35-40%. There was limited dyserythropoiesis involving less than 5% of the population. Blasts were not increased. There was no evidence of an infiltrative process. Iron stores were 1-2+/4. The flow cytometry was unremarkable. The chromosome analysis was normal, and the FISH panel for MDS was unrevealing. Overall, the findings were nondiagnostic. Her repeat CBC on 12/07/2016 showed hemoglobin down to 8.7 g with white blood cell count 3600 and platelet count 208,000. The serum iron was 60 mcg/dL with transferrin saturation 13.4%. Ferritin level was 145 ng/mL. Homocysteine level was elevated at 18.3 ???mol per liter. The methylmalonic acid level at that point was still elevated at 786/378 nmol/L despite the fact that she been receiving B12 injections weekly. With the low transferrin saturation, she was given an additional infusion of Injectafer on 12/11/2016. In addition, she was instructed to take her B12 injections daily for 7 days, and she then continued it weekly. Her follow-up CBC on 12/25/2016 showed just a slight increase in her hemoglobin, to 9.5 g with her MCV slightly high but stable at 103. During subsequent follow-up, her methylmalonic acid level remained elevated despite having weekly B12 injections, and she remained mildly anemic. On 04/18/2017 she presented to the emergency room with pain in the lower abdominal area. Her CT abdomen/pelvis showed twisting of the sigmoid colon and associated mesentery with mild bowel distention but without gross bowel dilatation. The findings were felt to be suspicious for internal hernia. She was known to have a large amount of colonic stool. She was transferred to the [facility] for further management, and she subsequently was admitted to the hospital there. Her obstructive symptoms resolved within a few days. She was, however, also found to have evidence of rectal prolapse, and she then underwent perineal proctectomy. As of 06/04/2017 her CBC showed decline in her hemoglobin to 8.8 g with MCV 102.6. The white blood cell count was 3300 and the platelet count was 284,000. The uncorrected reticulocyte count was 1.4%. Her chem profile showed normal renal function with BUN 15 and creatinine 0.7 mg/dL. Liver enzymes were normal. The serum iron studies showed low transferrin saturation at 15.3%, but with ferritin slightly high at 295 ng/mL. B12 level was normal at 471 pg/mL with folate level 7.20 ng/mL. Methylmalonic acid level was still elevated at 977/378 nmol/L. Her serum copper level was found to be low at 47 g/dL. She initially was started on oral copper supplementation. She then had further follow-up through her surgeon in [place], and there was reportedly no evidence of response to the oral copper supplement. She was then referred to a client operations manager there in [place] and in August or September 2017, and she subsequently began copper infusions daily for 5 days every 6 weeks. During her further follow-up, she also developed symptomatic hypocalcemia, and she was found to have severe vitamin D deficiency. She has since then been receiving weekly infusions of calcium gluconate and a multivitamin preparation along with her B12 replacement and her copper infusions every 6 weeks. Her other medical illnesses include hypertension and hypothyroidism. She has had chronic fatigue and chronic pain, and she has neurogenic bladder. She has history of smoking 1 pack of cigarettes daily for 12 years. She quit smoking in 2013. INTERIM HISTORY: She is seen for a scheduled visit. She says she is not feeling too bad. Her main complaint lately is that she started having leg cramps again. She had also recently sustained a traumatic fracture to her right fifth toe, but she just managed that herself. She has fatigue, but she is still working. ECOG score is 1. Subsequent to her last visit, she had lost weight. By her scale she went down to 119 pounds, but she is now back up to 126 pounds. By our scale she had weight 145 pounds last February. She does not have fever or night sweats. She has some soreness in her mouth, but that is probably related to her dentures. She sometimes gets short of breath with activity. She does not complain of cough. She has not been having chest pain. She has ongoing problems with nausea, mainly in the evening. She occasionally has vomiting. She uses her feeding tube for venting. Her bowel function is the same. She self catheterizes 4 neurogenic bladder. She has chronic back pain, but it is tolerable. Recently she has had some headaches. She says she does not feel her feet very well. She has no other focal neurologic symptoms. Medications: Benadryl 2 - 4 (25 mg) Tablet Oral q 4 hours PRN, Cyanocobalamin 1 mL (of 1000 mcg/mL) Injection q 1 week for 12 times, Cytomel 1 (50 mcg) Tablet Oral daily, Folic Acid 1 (1 mg) Tablet Oral daily, Promethazine HCl 1 - 2 (25 mg) Tablet Oral q 4 hours PRN, Synthroid 5 (300 mcg) Tablet Oral daily, TraMADol HCl 2 Tablet (of 50 mg) Oral q 6 hours PRN, Tylenol 2 (325 mg) Tablet Oral q 4 hours PRN, Zofran 1 (4 mg) Tablet Oral PRN Allergies: Erythromycin, Methylporafen, Morphine Sulfate, neosporin, Stadol, and Versed. Vital Signs: Performed on Jan 02, 2021 11:28 Height - 63.00 in Weight - 130 lbs (LOW) BSA - 1.61 sq.m BMI - 23.03 Temperature - 97.8 F (LOW) Pulse - 98 /min Respiration - 18 /min BP - 120/77 mm(hg) O2 Sat - 95 % (LOW) Pain - 3 Physical Examination: Constitutional - She looks pretty good generally, Eyes - Sclerae nonicteric. Conjunctivae clear, ENMT - No lesions noted in the oral cavity, Hematologic/Lymphatic - No cervical, clavicular, or axillary adenopathy, Respiratory - Lungs are clear, Cardiovascular - Heart rhythm is regular. There is no murmur, gallop, or rub noted, Abdomen - Soft. Liver and spleen are not enlarged. There is no abdominal mass or ascites noted. There is no inguinal adenopathy, Extremities - Slight edema, Neurologic - No focal neurologic deficits noted. Lab/Imaging: Test performed on Jan 02, 2021 09:25 Ferritin 120 ng/mL Iron 82 mcg/dL LDH (Total) 268 U/L Magnesium 1.8 mg/dL Sodium 132 mmol/L T3, Free 2.8 PG/ML T4, Free 1.79 ng/dL TSH 0.03 uIU/mL Vitamin B12 920 pg/mL Vitamin D (25-Hydroxy), Total 17 ng/mL Iron Binding Capacity (TIBC) 408 mcg/dl Potassium 3.8 mmol/L % Iron Saturation 20.0 % Chloride 101 mmol/L CO2 21 mmol/L UIBC 326 mcg/dL Anion Gap 13.8 BUN 16 mg/dL Creatinine 0.7 mg/dL Cr Clearance (Est) 98.1600 mL/min eGFR 88.9 mL/min Glucose 77 mg/dL Osmolality - Calculated 274 mOsm/kg Calcium 8.2 mg/dL Protein, Total 5.8 g/dL Albumin 4.0 g/dL Globulin 1.8 g/dL Bilirubin, Total 0.3 mg/dL ALT (SGPT) 25 U/L AST (SGOT) 28 U/L Alkaline Phosphatase 91 IU/L WBC 6.0 10 3/uL RBC 3.25 10 6/uL HGB 10.3 g/dL HCT 33.5 % MCV 103.1 fL MCH 31.7 pg MCHC 30.7 g/dL RDW 12.5 % Platelet Count 183 10 3/cmm MPV 10.5 fL Neutrophils 3.26 10 3/uL Lymphocytes 1.9 10 3/uL Monocytes 0.6 10 3/uL Eosinophils 0.1 10 3/uL Basophils 0.1 10 3/uL Neutrophil % 54.6 % Lymphocyte % 32.4 % Monocyte % 10.5 % Eosinophil % 1.7 % Basophils % 0.8 % NRBC % 0 % Problem List: 1. Chronic anemia, multifactorial. She has had documented iron deficiency, B12 deficiency, and copper deficiency. She remains mildly anemic despite replacement therapy. 2. Her clinical course was complicated by intussusception with bowel obstruction in October 2012. She had associated sepsis with respiratory failure and renal failure. She required multiple surgeries which included extensive bowel resection, temporary ileostomy, and placement of PEG tube. 3. She has had nutritional deficiencies related to short gut syndrome . 4. She has had chronic back pain and neurogenic bladder. 5. She also has hypothyroidism requiring high-dose replacement therapy. Problems Addressed with this Encounter and Plan: 1. Patient with recurrent iron deficiency anemia which developed following a gastric bypass procedure in 2001. She was given parenteral iron replacement with iron dextran in 2003, in 2005, and in October 2012. She also had associated B12 deficiency. In March 2016 she was found to have a significantly elevated methylmalonic acid level despite monthly B12 injections. Her bone marrow aspiration/biopsy on 10/31/2016 showed normal cellular marrow with no diagnostic findings. Iron stores were 1-2+. The chromosome analysis was normal, and the FISH panel for MDS was unrevealing. She subsequently was found to have copper deficiency, and she then began IV copper infusions daily for 5 days every 6 weeks. During this time she also continued to receive parenteral iron replacement with Injectafer as needed. 2. Her clinical course was complicated by intussusception with bowel obstruction in October 2012. She had associated sepsis with respiratory failure and renal failure. She required multiple surgeries which included extensive bowel resection, temporary ileostomy, and placement of PEG tube. She has had nutritional deficiencies related to short gut syndrome , including hypocalcemia and vitamin D deficiency. She will continues replacement therapy/nutritional support with weekly infusions of calcium gluconate and multivitamin. She will continue copper replacement daily for 5 days repeated every 6 weeks. She also will continue B12 injections weekly. She will be given further parenteral iron replacement as needed. I will see her again in 3 months. 3. She has had associated hypothyroidism, requiring high-dose replacement therapy. Her TSH level is now mildly decreased and she will reduce her levothyroxine dosage from 900 mcg 3 times daily to 900 mcg twice daily. She continues Cytomel 50 mcg daily. Signed By: Gerardo Jim M.D. <<Signature on File>>
[2021-01-06 10:04] LABS: Methylmalonic Acid 214 nmol/L (87-318)
[2021-01-06 18:33] LABS: Copper Level 83 mcg/dL (70-175)
[2021-01-09] MEDS: cyanocobalamin 1,000 mcg/mL SDV 1000 MCG SUBCUT (09:08)
== END 2021-01-14 23:59 | disposition home or self-care (01) ==
LOC: ONCMED 08:35
PROVIDERS: PCP Family Medicine; Visit Provider Internal Medicine Medical Oncology
DX: E61.0 Copper deficiency (principal); K91.2 Postsurgical malabsorption, not elsewhere classified; D51.9 Vitamin B12 deficiency anemia, unspecified; D50.9 Iron deficiency anemia, unspecified; D64.89 Other specified anemias; M54.5 Low back pain; G89.29 Other chronic pain; E03.9 Hypothyroidism, unspecified; N31.9 Neuromuscular dysfunction of bladder, unspecified; Z79.899 Other long term (current) drug therapy
CPT/HCPCS: 36591; 80053; 82306; 82525; 82607; 82728; 83540; 83550; 83615; 83735; 83921; 84439; 84443; 84481; 85025; 96365; 96372; 99214; J0610; J3420; J3490; J7050

== ENCOUNTER 2021-02-13 05:32 | Outpatient (RCR) | payer OTHER, SELFPAY ==
[2021-01-16] MEDS: cyanocobalamin 1,000 mcg/mL SDV 1000 MCG SUBCUT (09:15)
[2021-01-23] MEDS: cyanocobalamin 1,000 mcg/mL SDV 1000 MCG SUBCUT (09:30)
[2021-01-30] MEDS: cyanocobalamin 1,000 mcg/mL SDV 1000 MCG SUBCUT (09:15)
[2021-02-06] MEDS: cyanocobalamin 1,000 mcg/mL SDV 1000 MCG SUBCUT (09:25)
[2021-02-13] MEDS: cyanocobalamin 1,000 mcg/mL SDV 1000 MCG SUBCUT (10:37)
== END 2021-02-14 23:59 | disposition home or self-care (01) ==
LOC: ONCMED 05:32
PROVIDERS: PCP Family Medicine; Visit Provider Internal Medicine Medical Oncology
DX: K91.2 Postsurgical malabsorption, not elsewhere classified (principal); E61.0 Copper deficiency; D51.9 Vitamin B12 deficiency anemia, unspecified; D50.9 Iron deficiency anemia, unspecified; D64.89 Other specified anemias; Z79.899 Other long term (current) drug therapy
CPT/HCPCS: 96365; 96372; J0610; J3420; J3490; J7050

== ENCOUNTER 2021-03-13 06:27 | Outpatient (RCR) | payer OTHER, SELFPAY ==
[2021-02-21] MEDS: cyanocobalamin 1,000 mcg/mL SDV 1000 MCG IM (09:45)
[2021-03-06] MEDS: cyanocobalamin 1,000 mcg/mL SDV 1000 MCG IM ×2 (09:15→09:25)
[2021-03-13] MEDS: cyanocobalamin 1,000 mcg/mL SDV 1000 MCG IM (10:27)
== END 2021-03-16 23:59 | disposition home or self-care (01) ==
LOC: ONCMED 06:27
PROVIDERS: PCP Family Medicine; Visit Provider Internal Medicine Medical Oncology
DX: K91.2 Postsurgical malabsorption, not elsewhere classified (principal); E61.0 Copper deficiency; D51.9 Vitamin B12 deficiency anemia, unspecified; D50.9 Iron deficiency anemia, unspecified; Z79.899 Other long term (current) drug therapy
CPT/HCPCS: 96365; 96372; J0610; J3420; J3490; J7050

== ENCOUNTER 2021-04-10 08:41 | Outpatient (RCR) | payer OTHER, SELFPAY ==
[2021-03-20] MEDS: cyanocobalamin 1,000 mcg/mL SDV 1000 MCG SUBCUT (09:00)
[2021-03-27] MEDS: cyanocobalamin 1,000 mcg/mL SDV 1000 MCG SUBCUT (09:10)
[2021-04-03] MEDS: cyanocobalamin 1,000 mcg/mL SDV 1000 MCG SUBCUT (08:55)
[2021-04-10] MEDS: cyanocobalamin 1,000 mcg/mL SDV 1000 MCG SUBCUT (09:20)
== END 2021-04-16 23:59 | disposition home or self-care (01) ==
LOC: ONCMED 08:41
PROVIDERS: PCP Family Medicine; Visit Provider Internal Medicine Medical Oncology
DX: E61.0 Copper deficiency (principal); E51.9 Thiamine deficiency, unspecified; D50.9 Iron deficiency anemia, unspecified; K91.2 Postsurgical malabsorption, not elsewhere classified; Z79.899 Other long term (current) drug therapy
CPT/HCPCS: 96365; 96372; J0610; J3420; J3490; J7050

== ENCOUNTER 2021-05-15 06:33 | Outpatient (RCR) | payer OTHER, SELFPAY ==
[2021-04-17] MEDS: cyanocobalamin 1,000 mcg/mL SDV 1000 MCG SUBCUT (09:05)
[2021-04-24] MEDS: cyanocobalamin 1,000 mcg/mL SDV 1000 MCG SUBCUT (10:10)
[2021-05-01] MEDS: cyanocobalamin 1,000 mcg/mL SDV 1000 MCG SUBCUT (09:30)
[2021-05-08] MEDS: cyanocobalamin 1,000 mcg/mL SDV 1000 MCG SUBCUT (09:10)
[2021-05-15] MEDS: cyanocobalamin 1,000 mcg/mL SDV 1000 MCG SUBCUT (09:00)
[2021-05-15 09:43] LABS: Basophils # 0.1 10^3/uL (0.0-0.1); Basophils % 1.1 %; Eosinophils # 0.1 10^3/uL (0.0-0.8); Eosinophils % 1.6 %; Hematocrit 33.1 % (37.0-47.0); Hemoglobin 10.8 g/dL (11.5-15.3); Lymphocytes % 22.7 %; Mean Corpuscular HGB Conc 32.6 g/dL (30.0-36.0); Mean Corpuscular Hemoglobin 31.5 pg (28.0-34.0); Mean Corpuscular Volume 96.5 fl (81-99); Mean Platelet Volume 10.4 fL (7.4-10.4); Monocytes # 0.4 10^3/uL (0.2-0.9); Monocytes % 9.1 %; Neutrophils # 2.94 10^3/uL (1.8-7.7); Neutrophils % 65.3 %; Nucleated Red Blood Cells % 0 %; Platelet Count 180 10^3/cmm (130-400); Red Blood Count 3.43 10^6/uL (4.1-5.3); Red Cell Distribution Width 11.9 % (12.1-15.1); White Blood Count 4.5 10^3/uL (4.0-10.0)
[2021-05-15 10:07] LABS: Alanine Aminotransferase 17 U/L (0-33); Albumin Level 3.9 g/dL (3.5-5.2); Alkaline Phosphatase 83 IU/L (35-105); Anion Gap 13.2 (5-19); Aspartate Amino Transferase 19 U/L (0-32); Blood Urea Nitrogen 9 mg/dL (6-20); Calcium 8.1 mg/dL (8.5-10.5); Carbon Dioxide 21 mmol/L (22-29); Chloride 112 mmol/L (98-107); Globulin 1.8 g/dL (1.3-4.6); Glomerular Filtration Rate 88.6 mL/min (90-130); Glucose 90 mg/dL (65-115); Lactate Dehydrogenase 192 U/L (135-214); Magnesium 1.9 mg/dL (1.7-2.3); Osmolality Calculated 292 mOsm/kg (285-295); Potassium 4.2 mmol/L (3.5-5.1); Sodium 142 mmol/L (136-145); Total Bilirubin 0.2 mg/dL (0.15-1.2); Total Protein 5.7 g/dL (6.6-8.7)
[2021-05-15 10:13] LABS: Free T4 Free Thyroxine 2.26 ng/dL (0.82-1.77)
[2021-05-15 10:51] LABS: Ferritin 93 ng/mL (15-150); Iron 55 ug/dL (37-145); Percent Saturation 14.5 % (20-50); Thyroid Stimulating Hormone 0.01 uIU/mL (0.27-4.20); Total Iron Binding Capacity 377 mcg/dl; Unsaturated Iron Binding 322 ug/dL (112-347); Vitamin B12 769 pg/mL (232-1245)
[2021-05-15 12:01] LABS: 25 Hydroxy Vitamin D 100 ng/mL (30-100)
[2021-05-18 16:18] LABS: Methylmalonic Acid 174 nmol/L (87-318)
[2021-05-19 11:52] LABS: Copper Level 89 mcg/dL (70-175)
== END 2021-05-16 23:59 | disposition home or self-care (01) ==
LOC: ONCMED 06:33
PROVIDERS: Internal Medicine Medical Oncology; PCP Family Medicine; Visit Provider Nurse Practitioner
DX: E61.0 Copper deficiency (principal); D51.9 Vitamin B12 deficiency anemia, unspecified; D50.9 Iron deficiency anemia, unspecified; K91.2 Postsurgical malabsorption, not elsewhere classified; E03.9 Hypothyroidism, unspecified; Z79.899 Other long term (current) drug therapy
CPT/HCPCS: 36591; 80053; 82306; 82525; 82607; 82728; 83540; 83550; 83615; 83735; 83921; 84439; 84443; 84481; 85025; 96365; 96372; J0610; J3420; J3490; J7050

== ENCOUNTER 2021-06-12 08:43 | Outpatient (RCR) | payer OTHER, SELFPAY ==
[2021-05-22] MEDS: cyanocobalamin 1,000 mcg/mL SDV 1000 MCG SUBCUT (15:25)
[2021-05-29] MEDS: cyanocobalamin 1,000 mcg/mL SDV 1000 MCG SUBCUT (09:00)
--- NOTE | 2021-06-03 09:53 | ONC FU_ITS ---
Dr. Jim Patient Follow-Up Note Patient: Radha Contreras Unit #: [id number]: [id number] Dicatated By: Gerardo Jim M.D.Date of Visit:May 30, 2021 Onc Med Follow-up/Prog Note Chief Complaint: Anemia. History of Present Illness: This is a 51 year-old woman with chronic anemia, multifactorial. I had initially seen for iron deficiency anemia which developed in association with a previous gastric bypass procedure. I had treated her with parenteral iron dextran in 2003 and again in 2005. She also was on B12 replacement, and for a while she was getting Procrit injections, but that was stopped as of April 2007. I had seen her again in October of 2012 when she again required parenteral iron dextran. Shortly after that visit she was hospitalized at [facility] in [place] with bowel obstruction secondary to intussusception. She required multiple surgeries, including temporary ileostomy and placement of a PEG tube. She had associated sepsis with respiratory failure and with renal failure. She eventually did recover, but she was hospitalized again in September of 2015 for urinary tract infection and sepsis. She was found to be anemic again in January 2016. Her laboratory studies from 02/01/2016 included CBC showing hemoglobin 8.6 g with hematocrit 29%. The red cell indices were macrocytic with MCV 110 MCH 31. The white blood cell count was 4800 and the platelet count was 200,000. The serum iron was normal at 91 mcg/dL with transferrin saturation 23%. Ferritin was normal 140 ng/mL. Her CBC from 03/02/2016 showing hemoglobin down to 8.2 g with hematocrit 28%. At that time they folic acid level was normal at 6.9 ng/mL with B12 level in the low-normal range at 290 pg/mL. She was given a transfusion of 2 minutes of packed red blood cells on 03/08/2016. I had seen her for a follow-up visit on 04/02/2016. Her CBC at that time showed hemoglobin 9.3 g with white blood cell count 3800 and platelet count 146,000. Red cell indices were mildly macrocytic. Protein electrophoresis showed hypogammaglobulinemia. There is no monoclonal protein. The B12 level was in the low-normal range at 303 5 pg/mL with folate 6.30 ng/mL. The methylmalonic acid level was significantly elevated at 1511 nmol/L with homocysteine elevated at 18.7 nmol/L. She had been on monthly B12 replacement. Given those findings, her B12 injections were increased to weekly. She was given a single infusion of Injectafer on 06/08/2016. During subsequent follow-up, she remained mildly anemic. As of 10/16/2016 her hemoglobin was mildly decreased but stable at 10.1 g with mildly macrocytic red cell indices. Her serum iron studies showed transferrin saturation just slightly low at 17% with ferritin 98 ng/mL. She underwent bone marrow aspiration/biopsy on 10/31/2016. It showed normal cellularity of 35-40%. There was limited dyserythropoiesis involving less than 5% of the population. Blasts were not increased. There was no evidence of an infiltrative process. Iron stores were 1-2+/4. The flow cytometry was unremarkable. The chromosome analysis was normal, and the FISH panel for MDS was unrevealing. Overall, the findings were nondiagnostic. Her repeat CBC on 12/07/2016 showed hemoglobin down to 8.7 g with white blood cell count 3600 and platelet count 208,000. The serum iron was 60 mcg/dL with transferrin saturation 13.4%. Ferritin level was 145 ng/mL. Homocysteine level was elevated at 18.3 ???mol per liter. The methylmalonic acid level at that point was still elevated at 786/378 nmol/L despite the fact that she been receiving B12 injections weekly. With the low transferrin saturation, she was given an additional infusion of Injectafer on 12/11/2016. In addition, she was instructed to take her B12 injections daily for 7 days, and she then continued it weekly. Her follow-up CBC on 12/25/2016 showed just a slight increase in her hemoglobin, to 9.5 g with her MCV slightly high but stable at 103. During subsequent follow-up, her methylmalonic acid level remained elevated despite having weekly B12 injections, and she remained mildly anemic. On 04/18/2017 she presented to the emergency room with pain in the lower abdominal area. Her CT abdomen/pelvis showed twisting of the sigmoid colon and associated mesentery with mild bowel distention but without gross bowel dilatation. The findings were felt to be suspicious for internal hernia. She was known to have a large amount of colonic stool. She was transferred to the [facility] for further management, and she subsequently was admitted to the hospital there. Her obstructive symptoms resolved within a few days. She was, however, also found to have evidence of rectal prolapse, and she then underwent perineal proctectomy. As of 06/04/2017 her CBC showed decline in her hemoglobin to 8.8 g with MCV 102.6. The white blood cell count was 3300 and the platelet count was 284,000. The uncorrected reticulocyte count was 1.4%. Her chem profile showed normal renal function with BUN 15 and creatinine 0.7 mg/dL. Liver enzymes were normal. The serum iron studies showed low transferrin saturation at 15.3%, but with ferritin slightly high at 295 ng/mL. B12 level was normal at 471 pg/mL with folate level 7.20 ng/mL. Methylmalonic acid level was still elevated at 977/378 nmol/L. Her serum copper level was found to be low at 47 g/dL. She initially was started on oral copper supplementation. She then had further follow-up through her surgeon in [place], and there was reportedly no evidence of response to the oral copper supplement. She was then referred to a welding machine tender there in [place] in August or September 2017, and she subsequently began copper infusions daily for 5 days every 6 weeks. During her further follow-up, she also developed symptomatic hypocalcemia, and she was found to have severe vitamin D deficiency. She then began weekly infusions of calcium gluconate and a multivitamin preparation along with her B12 replacement and her copper infusions every 6 weeks. Her other medical illnesses include hypertension and hypothyroidism. She has had chronic fatigue and chronic pain, and she has neurogenic bladder. She has history of smoking 1 pack of cigarettes daily for 12 years. She quit smoking in 2013. INTERIM HISTORY: She is seen for a scheduled visit. She has been feeling pretty good generally. Her energy is fair. She is working. ECOG score is 1. Her appetite varies. She eats small meals frequently. Her weight is down 5 pounds. She does not have fever or night sweats. She says she feels cold all the time. She gets sores in her mouth, as she is prone to biting herself. She has not had sore throat or difficulty swallowing. She does not complain of cough, and she has not been having shortness of breath or chest pain. She has some nausea on a daily basis, but lately not as much as long as she is able to vent with her feeding tube. She continues to have watery stools after any oral intake. She self catheterizes for urinary retention. Her joints are sore and she has pain in her neck and back, which limits her activity. She has had some headaches and she sometimes has dizziness. She has numbness in her feet. Medications: Benadryl 2 - 4 (25 mg) Tablet Oral q 4 hours PRN, Cyanocobalamin 1 mL (of 1000 mcg/mL) Injection q 1 week for 12 times, Cytomel 1 (50 mcg) Tablet Oral daily, Folic Acid 1 (1 mg) Tablet Oral daily, Promethazine HCl 1 - 2 (25 mg) Tablet Oral q 4 hours PRN, Synthroid 1 Tablet (of 300 mcg) Oral daily, TraMADol HCl 2 Tablet (of 50 mg) Oral q 6 hours PRN, Tylenol 2 (325 mg) Tablet Oral q 4 hours PRN, Zofran 1 (4 mg) Tablet Oral PRN Allergies: Erythromycin, Methylporafen, Morphine Sulfate, neosporin, Stadol, and Versed. Vital Signs: Performed on May 30, 2021 10:18 Height - 63.00 in Weight - 125.4 lbs (LOW) BSA - 1.59 sq.m BMI - 22.21 Temperature - 98.3 F (LOW) Pulse - 109 /min (HIGH) Respiration - 16 /min BP - 137/76 mm(hg) O2 Sat - 97 % Pain - 3 Fatigue - 3 Physical Examination: Constitutional - She looks pretty good generally, Eyes - Sclerae nonicteric. Conjunctivae clear, ENMT - No lesions noted in the oral cavity, Hematologic/Lymphatic - No cervical, clavicular, or axillary adenopathy, Respiratory - Lungs sound clear, Cardiovascular - Heart rhythm is regular. There is no murmur, gallop, or rub noted, Abdomen - Soft. Liver and spleen are not enlarged. There is no abdominal mass or ascites noted. There is no inguinal adenopathy, Extremities - No edema, Neurologic - No focal neurologic deficits noted. Lab/Imaging: Test performed on May 15, 2021 09:10 Ferritin 93 ng/mL Iron 55 mcg/dL LDH (Total) 192 U/L Magnesium 1.9 mg/dL Methylmalonic Acid 174 nmol/L Sodium 142 mmol/L T3, Free 4.0 PG/ML T4, Free 2.26 ng/dL TSH 0.01 uIU/mL Vitamin B12 769 pg/mL Vitamin D (25-Hydroxy), Total 100 ng/mL Iron Binding Capacity (TIBC) 377 mcg/dl Potassium 4.2 mmol/L % Iron Saturation 14.5 % Chloride 112 mmol/L CO2 21 mmol/L UIBC 322 mcg/dL Anion Gap 13.2 BUN 9 mg/dL Creatinine 0.7 mg/dL Cr Clearance (Est) 97.0800 mL/min eGFR 88.6 mL/min Glucose 90 mg/dL Osmolality - Calculated 292 mOsm/kg Calcium 8.1 mg/dL Protein, Total 5.7 g/dL Albumin 3.9 g/dL Globulin 1.8 g/dL Bilirubin, Total 0.2 mg/dL ALT (SGPT) 17 U/L AST (SGOT) 19 U/L Alkaline Phosphatase 83 IU/L WBC 4.5 10 3/uL RBC 3.43 10 6/uL HGB 10.8 g/dL HCT 33.1 % MCV 96.5 fl MCH 31.5 pg MCHC 32.6 g/dL RDW 11.9 % Platelet Count 180 10 3/cmm MPV 10.4 fL Neutrophils 2.94 10 3/uL Lymphocytes 1.0 10 3/uL Monocytes 0.4 10 3/uL Eosinophils 0.1 10 3/uL Basophils 0.1 10 3/uL Neutrophil % 65.3 % Lymphocyte % 22.7 % Monocyte % 9.1 % Eosinophil % 1.6 % Basophils % 1.1 % NRBC % 0 % Problem List: 1. Chronic anemia, multifactorial. She has had documented iron deficiency, B12 deficiency, and copper deficiency. She remains mildly anemic despite replacement therapy. 2. Her clinical course was complicated by intussusception with bowel obstruction in October 2012. She had associated sepsis with respiratory failure and renal failure. She required multiple surgeries which included extensive bowel resection, temporary ileostomy, and placement of PEG tube. 3. She has had nutritional deficiencies related to short gut syndrome . 4. She has had chronic back pain and neurogenic bladder. 5. She also has hypothyroidism requiring high-dose replacement therapy. Problems Addressed with this Encounter and Plan: 1. Patient with recurrent iron deficiency anemia which developed following a gastric bypass procedure in 2001. She was given parenteral iron replacement with iron dextran in 2003, in 2005, and in October 2012. She also had associated B12 deficiency. In March 2016 she was found to have a significantly elevated methylmalonic acid level despite monthly B12 injections. Her bone marrow aspiration/biopsy on 10/31/2016 showed normal cellular marrow with no diagnostic findings. Iron stores were 1-2+. The chromosome analysis was normal, and the FISH panel for MDS was unrevealing. She subsequently was found to have copper deficiency, and she then began IV copper infusions daily for 5 days every 6 weeks. During follow-up she has required additional parenteral iron replacement with Injectafer, but infrequently. She has remained mildly anemic. She will continue her copper replacement daily for 5 days repeated every 6 weeks. She also will continue B12 injections weekly. She will be given further parenteral iron replacement as needed. She will have lab studies repeated in 3 months and a follow-up visit in 6 months. 2. Her clinical course was complicated by intussusception with bowel obstruction in October 2012. She had associated sepsis with respiratory failure and renal failure. She required multiple surgeries which included extensive bowel resection, temporary ileostomy, and placement of PEG tube. She has had nutritional deficiencies related to short gut syndrome , including hypocalcemia and vitamin D deficiency. She will continues replacement therapy/nutritional support with weekly infusions of calcium gluconate and multivitamin. 3. She has had associated hypothyroidism, requiring high-dose replacement therapy. Her recent TSH levels have been low, and her levothyroxine dosage will now be decreased to 300 mcg daily. She continues Cytomel 50 mcg daily. Signed By: Gerardo Jim M.D. <<Signature on File>>
[2021-06-05] MEDS: cyanocobalamin 1,000 mcg/mL SDV 1000 MCG SUBCUT (09:20)
[2021-06-12] MEDS: cyanocobalamin 1,000 mcg/mL SDV 1000 MCG SUBCUT (09:25)
== END 2021-06-16 23:59 | disposition home or self-care (01) ==
LOC: ONCMED 08:43
PROVIDERS: PCP Family Medicine; Visit Provider Internal Medicine Medical Oncology
DX: D64.9 Anemia, unspecified (principal); E61.1 Iron deficiency; E53.8 Deficiency of other specified B group vitamins; E61.0 Copper deficiency; K91.2 Postsurgical malabsorption, not elsewhere classified; N31.9 Neuromuscular dysfunction of bladder, unspecified; M54.50 Low back pain, unspecified; G89.29 Other chronic pain; E03.9 Hypothyroidism, unspecified; Z79.899 Other long term (current) drug therapy
CPT/HCPCS: 96365; 96368; 96372; 99214; J0610; J3420; J3490; J7050

== ENCOUNTER 2021-06-14 12:19 | Outpatient (CLI) | payer OTHER, SELFPAY ==
--- NOTE | 2021-06-14 12:23 | CT_ITS ---
WS: [id number] CT ABDOMEN CONTRAST TECHNIQUE: Contrast enhanced CT of the abdomen with coronal and sagittal reformatted images. CLINICAL INFORMATION: GI BLEED/EPIGASTRIC ABDOMINAL PAIN COMPARISON: CT July 08, 2018 DLP: 355.[address] scans at [facility] use at least one of these dose optimization techniques: automated e xposure control; mA and/or kV adjustment per patient size (includes targeted exams where dose is matc hed to clinical indication); or iterative reconstruction. FINDINGS: Diffuse fatty infiltration of the liver. Cholecystectomy clips. Normal portal vein and splenic vein. Normal spleen. Adrenal glands are normal. Normal renal parenchymal enhancement. No hydronephrosis. No rmal caliber abdominal aorta. Percutaneous gastrostomy in place. Prior postoperative changes at the G E junction likely due to gastric bypass. Tiny hiatal hernia. Lung bases are well aerated. Partially v isualized fluid distended loops of small large bowel in the upper abdomen. Partially visualized postoperative changes involving bowel in the midabdomen. CT/CT abdomen w con* [id number] IMPRESSION: 1. Percutaneous gastrostomy tube in place. No evidence of surrounding hematoma or fluid collection. 2. Prior postoperative change GE junction and stomach with prior gastric bypas s. 3. Partially visualized fluid distended loops of small and large bowel in the mid and upper abdomen. 4. Diffuse fatty infiltration liver. 5. Prior cholecystectomy. 6. No hydronephrosis in either kidney. 7. Normal caliber upper abdominal aorta.
[2021-06-14] MEDS: iohexol 300 mg/mL 100 mL Btl IV (12:39)
== END 2021-06-14 12:20 | disposition home or self-care (01) ==
LOC: RAD 12:20
PROVIDERS: PCP Family Medicine; Visit Provider Family Medicine
DX: K92.2 Gastrointestinal hemorrhage, unspecified (principal); Z93.1 Gastrostomy status; K76.0 Fatty (change of) liver, not elsewhere classified; Z90.49 Acquired absence of other specified parts of digestive tract
CPT/HCPCS: 74160

== ENCOUNTER 2021-07-17 06:40 | Outpatient (RCR) | payer OTHER, SELFPAY ==
[2021-06-19] MEDS: cyanocobalamin 1,000 mcg/mL SDV 1000 MCG SUBCUT (09:40)
[2021-06-26] MEDS: cyanocobalamin 1,000 mcg/mL SDV 1000 MCG SUBCUT (08:56)
[2021-07-03] MEDS: cyanocobalamin 1,000 mcg/mL SDV 1000 MCG SUBCUT (08:50)
[2021-07-10] MEDS: cyanocobalamin 1,000 mcg/mL SDV 1000 MCG SUBCUT (09:15)
[2021-07-17] MEDS: cyanocobalamin 1,000 mcg/mL SDV 1000 MCG SUBCUT (09:20)
== END 2021-07-17 23:59 | disposition home or self-care (01) ==
LOC: ONCMED 06:40
PROVIDERS: PCP Family Medicine; Visit Provider Nurse Practitioner
DX: D51.9 Vitamin B12 deficiency anemia, unspecified (principal); D50.9 Iron deficiency anemia, unspecified; E61.0 Copper deficiency; K91.2 Postsurgical malabsorption, not elsewhere classified; Z79.899 Other long term (current) drug therapy
CPT/HCPCS: 96365; 96368; 96372; J0610; J3420; J3490; J7050

== ENCOUNTER 2021-08-14 07:16 | Outpatient (RCR) | payer OTHER, SELFPAY ==
[2021-07-24] MEDS: cyanocobalamin 1,000 mcg/mL SDV 1000 MCG SUBCUT (09:30)
[2021-07-31] MEDS: cyanocobalamin 1,000 mcg/mL SDV 1000 MCG SUBCUT (09:38)
[2021-08-07] MEDS: calcium gluconate 0.9% NaCL 1 GM/50 ML PREMIX IV (09:13)
[2021-08-07] MEDS: cyanocobalamin 1,000 mcg/mL SDV 1000 MCG SUBCUT (09:14)
[2021-08-14] MEDS: calcium gluconate 0.9% NaCL 1 GM/50 ML PREMIX IV (09:13)
[2021-08-14] MEDS: cyanocobalamin 1,000 mcg/mL SDV 1000 MCG SUBCUT (09:15)
== END 2021-08-14 23:59 | disposition home or self-care (01) ==
LOC: ONCMED 07:16
PROVIDERS: PCP Family Medicine; Visit Provider Internal Medicine Medical Oncology
DX: E61.0 Copper deficiency (principal); D51.9 Vitamin B12 deficiency anemia, unspecified; D50.9 Iron deficiency anemia, unspecified; K91.2 Postsurgical malabsorption, not elsewhere classified; Z79.899 Other long term (current) drug therapy
CPT/HCPCS: 96365; 96368; 96372; J0610; J3420; J3490; J7050

== ENCOUNTER 2021-09-11 06:39 | Outpatient (RCR) | payer OTHER, SELFPAY ==
[2021-08-21] MEDS: calcium gluconate 0.9% NaCL 1 GM/50 ML PREMIX IV (09:40)
[2021-08-21] MEDS: cyanocobalamin 1,000 mcg/mL SDV 1000 MCG SUBCUT (10:00)
[2021-08-28] MEDS: calcium gluconate 0.9% NaCL 1 GM/50 ML PREMIX IV (09:52)
[2021-08-28] MEDS: cyanocobalamin 1,000 mcg/mL SDV 1000 MCG SUBCUT (10:42)
[2021-09-04 09:14] LABS: Basophils % 0.6 %; Eosinophils % 0.4 %; Hematocrit 33.5 % (37.0-47.0); Hemoglobin 10.4 g/dL (11.5-15.3); Lymphocytes # 0.8 10^3/uL (0.8-4.8); Lymphocytes % 16.9 %; Mean Corpuscular Hemoglobin 30.8 pg (28.0-34.0); Mean Corpuscular Volume 99.1 fl (81-99); Monocytes # 0.3 10^3/uL (0.2-0.9); Monocytes % 6.1 %; Neutrophils # 3.62 10^3/uL (1.8-7.7); Neutrophils % 75.8 %; Nucleated Red Blood Cells % 0 %; Platelet Count 215 10^3/cmm (130-400); Red Blood Count 3.38 10^6/uL (4.1-5.3); Red Cell Distribution Width 12.7 % (12.1-15.1); White Blood Count 4.8 10^3/uL (4.0-10.0)
[2021-09-04 09:48] LABS: 25 Hydroxy Vitamin D 9 ng/mL (30-100); Alanine Aminotransferase 21 U/L (0-33); Albumin Level 4.3 g/dL (3.5-5.2); Alkaline Phosphatase 96 IU/L (35-105); Aspartate Amino Transferase 23 U/L (0-32); Blood Urea Nitrogen 13 mg/dL (6-20); Calcium 8.6 mg/dL (8.5-10.5); Carbon Dioxide 19 mmol/L (22-29); Chloride 109 mmol/L (98-107); Ferritin 47 ng/mL (15-150); Globulin 1.9 g/dL (1.3-4.6); Glomerular Filtration Rate 105.8 mL/min (90-130); Glucose 135 mg/dL (65-115); Iron 79 ug/dL (37-145); Osmolality Calculated 288 mOsm/kg (285-295); Percent Saturation 19.1 % (20-50); Sodium 138 mmol/L (136-145); Thyroid Stimulating Hormone 0.01 uIU/mL (0.27-4.20); Total Bilirubin 0.2 mg/dL (0.15-1.2); Total Iron Binding Capacity 412 mcg/dl; Total Protein 6.2 g/dL (6.6-8.7); Unsaturated Iron Binding 333 ug/dL (112-347); Vitamin B12 814 pg/mL (232-1245)
[2021-09-04 10:37] LABS: Free T4 Free Thyroxine 1.84 ng/dL (0.82-1.77)
[2021-09-04 11:02] LABS: T3 Free 3.5 PG/ML (2.0-4.4)
[2021-09-04] MEDS: calcium gluconate 0.9% NaCL 1 GM/50 ML PREMIX IV (13:33)
[2021-09-04] MEDS: cyanocobalamin 1,000 mcg/mL SDV 1000 MCG SUBCUT (13:35)
[2021-09-11] MEDS: calcium gluconate 0.9% NaCL 1 GM/50 ML PREMIX IV (09:26)
[2021-09-11] MEDS: ferric carboxy (IVPB) 750 MG in sodium chloride 0.9% (100 ml) 100 ML 400 MG IV (10:26)
[2021-09-11] MEDS: sodium chloride 0.9% (100 ml) 100 ML 25 ML (10:26)
[2021-09-11] MEDS: cyanocobalamin 1,000 mcg/mL SDV 1000 MCG SUBCUT (10:55)
== END 2021-09-14 23:59 | disposition home or self-care (01) ==
LOC: ONCMED 06:39
PROVIDERS: PCP Family Medicine; Visit Provider Internal Medicine Medical Oncology
DX: K91.2 Postsurgical malabsorption, not elsewhere classified (principal); E61.0 Copper deficiency; D51.9 Vitamin B12 deficiency anemia, unspecified; D50.9 Iron deficiency anemia, unspecified; Z79.899 Other long term (current) drug therapy
CPT/HCPCS: 80053; 82306; 82607; 82728; 83540; 83550; 84439; 84443; 84481; 85025; 96365; 96367; 96368; 96372; J0610; J1439; J3420; J3490; J7050

== ENCOUNTER 2021-09-16 11:47 | Emergency (ER) | payer OTHER, SELFPAY ==
[2021-09-16 11:54] VITALS: BP 149/91; PULSE 98; RESP 20; TEMP 37.4; O2SAT 100; BMI 21.2
--- NOTE | 2021-09-16 12:50 | CTR_ITS ---
PROCEDURE INFORMATION: Exam: CT Abdomen And Pelvis With Contrast Exam date and time: 09/16/2021 1:36 PM Age: 51 years old Clinical indication: Abdominal pain; Prior surgery; Surgery type: Feeding tube, gastric bypass; Additional info: Abd pain TECHNIQUE: Imaging protocol: Computed tomography of the abdomen and pelvis with contrast. Radiation optimization: All CT scans at this facility use at least one of these dose optimization techniques: automated exposure control; mA and/or kV adjustment per patient size (includes targeted exams where dose is matched to clinical indication); or iterative reconstruction. Contrast material: OMNI 300; Contrast volume: 75 ml; Contrast route: INTRAVENOUS (IV); COMPARISON: CT abdomen w con* [id number] 06/14/2021 12:37 PM RADIATION DOSE METRICS: Total DLP (mGy-cm): 777.4 FINDINGS: Tubes, catheters and devices: Stable PEG tube. Liver: Normal. No mass. Gallbladder and bile ducts: Stable cholecystectomy. Pancreas: Normal. No ductal dilation. Spleen: Normal. No splenomegaly. Adrenal glands: Normal. No mass. Kidneys and ureters: Normal. No hydronephrosis. Stomach and bowel: Stable gastric bypass surgery. Appendix: No evidence of appendicitis. Intraperitoneal space: Unremarkable. No free air. No significant fluid collection. Vasculature: One or more calcified pelvic phleboliths. Lymph nodes: Unremarkable. No enlarged lymph nodes. Urinary bladder: Unremarkable as visualized. Reproductive: Unremarkable as visualized. Bones/joints: Levoscoliosis. Levoscoliosis. Soft tissues: Unremarkable. CT/CT abdomen pelvis w con* [id number] IMPRESSION: 1. Stable gastric bypass surgery. 2. Stable PEG tube.
[2021-09-16 13:03] LABS: Basophils % 0.4 %; Eosinophils % 0.4 %; Hemoglobin 11.1 g/dL (11.5-15.3); Lymphocytes # 0.7 10^3/uL (0.8-4.8); Lymphocytes % 13.8 %; Mean Corpuscular HGB Conc 31.7 g/dL (30.0-36.0); Mean Corpuscular Hemoglobin 31.7 pg (28.0-34.0); Monocytes # 0.6 10^3/uL (0.2-0.9); Monocytes % 10.8 %; Neutrophils # 3.95 10^3/uL (1.8-7.7); Neutrophils % 74.4 %; Nucleated Red Blood Cells % 0 %; Platelet Count 176 10^3/cmm (130-400); Red Cell Distribution Width 12.4 % (12.1-15.1); White Blood Count 5.3 10^3/uL (4.0-10.0)
[2021-09-16] MEDS: sodium chloride 0.9% 1,000 ML 999 ML IV (13:24)
[2021-09-16 13:25] LABS: Alanine Aminotransferase 21 U/L (0-33); Albumin Level 4.5 g/dL (3.5-5.2); Alkaline Phosphatase 111 IU/L (35-105); Anion Gap 15.9 (5-19); Aspartate Amino Transferase 27 U/L (0-32); Blood Urea Nitrogen 10 mg/dL (6-20); Calcium 9.2 mg/dL (8.5-10.5); Carbon Dioxide 20 mmol/L (22-29); Chloride 111 mmol/L (98-107); Glomerular Filtration Rate 88.6 mL/min (90-130); Glucose 107 mg/dL (65-115); Lipase 42 U/L (13-60); Osmolality Calculated 296 mOsm/kg (285-295); Potassium 3.9 mmol/L (3.5-5.1); Sodium 143 mmol/L (136-145); Total Bilirubin 0.2 mg/dL (0.15-1.2); Total Protein 6.5 g/dL (6.6-8.7)
[2021-09-16] MEDS: ondansetron 2 mg/ML SDV 2 mL 4 MG IVP (13:25)
--- NOTE | 2021-09-16 13:25 | ED_ITS ---
HPI - Abdominal Pain General: Chief Complaint: Abdominal Pain Stated Complaint: abdomen pain Time Seen by Provider: 09/16/21 12:17 Source: patient Mode of arrival: ambulatory Limitations: no limitations History of Present Illness: 51-year-old female presents emergency room complaining of abdominal pain. She said pain for last week. Is been getting progressively worse she previously had a perforated viscus from her description sounds like he had a duodenal ulcer that perforated she also sounds like she had an intussusception she had a resection of small bowel and ultimately did up with a PEG tube. Has not been using the PEG tube to administer any medications. She denies any medic easy melena hematemesis coffee-ground emesis no fever sweats chills no dysuria urgency or frequency. MD elicited complaint: abdominal pain Pertinent past history: none Pain Consistency: constant Location: Epigastric Severity: moderate Quality: cramping Radiation: none and LUQ Exacerbating factors: eating Relieving factors: nothing Associated Symptoms: Reports anorexia, bloating, GI cramping, nausea, poor appetite, syncope and vomiting; Denies belching, change in bowel habits, change in stool character, chills, coffee ground emesis, constipation, diarrhea, dyspepsia, dysuria, excessive flatus, fever(s), heartburn, hematochezia, hematuria, hematemesis, fecal incontinence, loose stools and melena Review of Systems Const: Denies: fever(s) or chills Card: Reports: syncope GI: Reports: abdominal pain, nausea, vomiting, bloating and GI cramping; Denies: hematemesis, coffee ground emesis, heartburn, diarrhea, constipation, belching, excessive flatus, fecal incontinence, change in bowel habits, change in stool character, hematochezia or melena : Denies: dysuria or hematuria PFS ED PFSH: Medical History (Updated 09/16/21 @ 15:14 by Artie Farris DO) Intussusception intestine Surgical History (Updated 09/16/21 @ 13:28 by Artie Farris DO) S/P laparotomy S/P percutaneous endoscopic gastrostomy (PEG) tube placement Physical Exam Const: COMMON NORMALS: no acute distress GENERAL APPEARANCE: cooperative and comfortable ORIENTATION/CONSCIOUSNESS: Yes awake, Yes oriented to person, Yes oriented to place and Yes oriented to time HENMT: COMMON NORMALS: normocephalic, atraumatic and hearing grossly normal bilaterally HEAD & SCALP: normocephalic and atraumatic Neck/C-Spine: COMMON NORMALS: no JVD Resp: COMMON NORMALS: normal respiratory effort, No retractions, No use of accessory muscles and clear to auscultation bilaterally AUSCULTATION: clear to auscultation bilaterally Cardio: COMMON NORMALS: no JVD, regular rate, regular rhythm and No murmurs present (Cardio) RATE: regular rate RHYTHM: regular rhythm GI: COMMON NORMALS: No hepatosplenomegaly present AUSCULTATION: Yes normoactive bowel sounds PALPATION: Yes Tenderness to palpation present (GI) (Epigastric) Details: LUQ, No Guarding due to palpation present (GI) and Yes No hepatosplenomegaly present Extremity: COMMON NORMALS: normal to inspection, capillary refill normal, no clubbing, cyanosis or edema, no calf tenderness and no pedal edema Neuro: SENSORIUM/ORIENTATION: Yes oriented to person, Yes oriented to place and Yes oriented to time Skin: COMMON NORMALS: no rashes or lesions noted GENERAL SKIN EXAM: no rashes or lesions noted Course Vital Signs: Vital signs: Vital Signs Temperature 99.3 F 09/16/21 11:54 Pulse Rate 98 09/16/21 11:54 Respiratory Rate 20 H 09/16/21 11:54 Blood Pressure 149/91 09/16/21 11:54 Pulse Oximetry 100 09/16/21 11:54 MDM - Abdominal Pain Medical Decision Making Reviewed labs and imaging. Discussed with the patient. We will increase her Protonix to 80 twice daily add Carafate follow-up with primary care doctor bland GI diet for ulcers return if has dark tarry stools vomits blood or pus is bright red blood in stools. Medical Records I reviewed the patient's medical records. Lab Data I reviewed the patient's lab results. : 09/16/21 12:57 09/16/21 12:57 Labs/Radiology: Radiology Impressions Abdomen/Pelvis CT 09/16/21 12:50 IMPRESSION: 1. Stable gastric bypass surgery. 2. Stable PEG tube. Laboratory Results WBC 5.3 10^3/uL (4.0-10.0) 09/16/21 12:57 RBC 3.50 10^6/uL (4.1-5.3) L 09/16/21 12:57 Hgb 11.1 g/dL (11.5-15.3) L 09/16/21 12:57 Hct 35.0 % (37.0-47.0) L 09/16/21 12:57 MCV 100.0 fl (81-99) H 09/16/21 12:57 MCH 31.7 pg (28.0-34.0) 09/16/21 12:57 MCHC 31.7 g/dL (30.0-36.0) 09/16/21 12:57 RDW 12.4 % (12.1-15.1) 09/16/21 12:57 Plt Count 176 10^3/cmm (130-400) 09/16/21 12:57 MPV 10.0 fL (7.4-10.4) 09/16/21 12:57 Neut % (Auto) 74.4 % 09/16/21 12:57 Lymph % (Auto) 13.8 % 09/16/21 12:57 [place] % (Auto) 10.8 % 09/16/21 12:57 Eos % (Auto) 0.4 % 09/16/21 12:57 Baso % (Auto) 0.4 % 09/16/21 12:57 Neut # (Auto) 3.95 10^3/uL (1.8-7.7) 09/16/21 12:57 Lymph # (Auto) 0.7 10^3/uL (0.8-4.8) L 09/16/21 12:57 [place] # (Auto) 0.6 10^3/uL (0.2-0.9) 09/16/21 12:57 Eos # (Auto) 0.0 10^3/uL (0.0-0.8) 09/16/21 12:57 Baso # (Auto) 0.0 10^3/uL (0.0-0.1) 09/16/21 12:57 Nucleated RBC % (auto) 0 % 09/16/21 12:57 Nucleated RBCs # 0.0 /100WBC 09/16/21 12:57 Sodium 143 mmol/L (136-145) 09/16/21 12:57 Potassium 3.9 mmol/L (3.5-5.1) 09/16/21 12:57 Chloride 111 mmol/L (98-107) H 09/16/21 12:57 Carbon Dioxide 20 mmol/L (22-29) L 09/16/21 12:57 Anion Gap 15.9 (5-19) 09/16/21 12:57 BUN 10 mg/dL (6-20) 09/16/21 12:57 Creatinine 0.7 mg/dL (0.5-0.9) 09/16/21 12:57 GFR Calculation 88.6 mL/min (90-130) L 09/16/21 12:57 Glucose 107 mg/dL (65-115) 09/16/21 12:57 Calculated Osmolality 296 mOsm/kg (285-295) H 09/16/21 12:57 Calcium 9.2 mg/dL (8.5-10.5) 09/16/21 12:57 Total Bilirubin 0.2 mg/dL (0.15-1.2) 09/16/21 12:57 AST 27 U/L (0-32) 09/16/21 12:57 ALT 21 U/L (0-33) 09/16/21 12:57 Alkaline Phosphatase 111 IU/L (35-105) H 09/16/21 12:57 Total Protein 6.5 g/dL (6.6-8.7) L 09/16/21 12:57 Albumin 4.5 g/dL (3.5-5.2) 09/16/21 12:57 Globulin 2.0 g/dL (1.3-4.6) 09/16/21 12:57 Lipase 42 U/L (13-60) 09/16/21 12:57 Urine Color Straw (Yellow) 09/16/21 12:08 Urine Appearance Clear (CLEAR) 09/16/21 12:08 Urine pH 5 (5-7) 09/16/21 12:08 Ur Specific [place] 1.010 (1.005-1.030) 09/16/21 12:08 Urine Protein Neg (Negative) 09/16/21 12:08 Urine Glucose (UA) Norm (Normal) 09/16/21 12:08 Urine Ketones Negative (Negative) 09/16/21 12:08 Urine Blood 2+ (Negative) H 09/16/21 12:08 Urine Nitrate Negative (Negative) 09/16/21 12:08 Urine Bilirubin Neg (Negative) 09/16/21 12:08 Urine Urobilinogen Norm mg/dL (Negative) 09/16/21 12:08 Ur Leukocyte Esterase Trace (Negative) H 09/16/21 12:08 Urine RBC Rare /hpf (0-2) 09/16/21 12:08 Urine WBC 0-4 /hpf (0-5) H 09/16/21 12:08 Ur Squamous Epith Cells None /hpf (0-5) 09/16/21 12:08 Amorphous Sediment Not Reportable 09/16/21 12:08 Urine Bacteria Trace /hpf (NONE) 09/16/21 12:08 Discharge Plan Discharge Patient Disposition: Home Clinical Impression: Duodenal ulcer Condition: Stable Prescriptions: New Protonix 40 mg tablet,delayed release (DR/EC) 80 mg PO BID Qty: 120 0RF Carafate 1 gram tablet 1 g PO Q6H 56 Days Qty: 224 0RF Discharge Orders: Discharge ED (Routine); Ordered 09/16/21 Ordered By: Artie Farris Referrals: Jesse Monet MD [Primary Care Provider] - Discharge Diet: As Directed Discharge Activity: Increase activity as tolerated Patient Instructions: Diet for Stomach Ulcers and Gastritis (ED), Opioid Safety Activity Restrictions/Additional Instructions: Follow-up with Dr. Nassar within the next week. Coding Level of Care Code ED Custody Officer for [place] [facility] Exam Comprehensive
[2021-09-16] MEDS: iohexol 300 mg/mL 100 mL Btl IV (13:35)
[2021-09-16 13:43] LABS: Add Urine Microscopic? YES; Bacteria Urine TRACE /hpf; Bilirubin Urine Neg (Negative); Blood Urine 2+ (Negative); Glucose Urine UA Norm (Normal); Ketones Urine Negative (Negative); Leukocyte Esterase Urine Trace (Negative); Nitrate Urine Negative (Negative); Protein Urine Neg (Negative); RBC Urine RARE /hpf (0-2); Urine Appearance Clear (CLEAR); Urine Color Straw (Yellow); Urobilinogen Urine Norm (Negative); WBC Urine 0-4 /hpf (0-5); pH Urine 5 (5-7)
[2021-09-16 13:44] LABS: Add Urine Culture? No
[2021-09-16 15:36] VITALS: BP 121/74; PULSE 94; RESP 14; O2SAT 96
== END 2021-09-16 15:38 | disposition home or self-care (01) ==
PROVIDERS: Emergency Provider Family Medicine; PCP Family Medicine
DX: K26.9 Duodenal ulcer, unspecified as acute or chronic, without hemorrhage or perforation (principal); Z90.49 Acquired absence of other specified parts of digestive tract
CPT/HCPCS: 74177; 80053; 81001; 83690; 85025; 96361; 96374; 99283; J2405; J7030; Q9967

== ENCOUNTER 2021-10-09 07:06 | Outpatient (RCR) | payer OTHER, SELFPAY ==
[2021-09-18] MEDS: sodium chloride 0.9% (100 ml) 100 ML 75 ML (09:15)
[2021-09-18] MEDS: ferric carboxy (IVPB) 750 MG in sodium chloride 0.9% (100 ml) 100 ML 400 MG IV (10:05)
[2021-09-18] MEDS: cyanocobalamin 1,000 mcg/mL SDV 1000 MCG SUBCUT (10:34)
[2021-09-25] MEDS: cyanocobalamin 1,000 mcg/mL SDV 1000 MCG SUBCUT (09:21)
[2021-10-02] MEDS: cyanocobalamin 1,000 mcg/mL SDV 1000 MCG SUBCUT (09:03)
[2021-10-09] MEDS: cyanocobalamin 1,000 mcg/mL SDV 1000 MCG SUBCUT (09:13)
== END 2021-10-14 23:59 | disposition home or self-care (01) ==
LOC: ONCMED 07:06
PROVIDERS: PCP Family Medicine; Visit Provider Internal Medicine Medical Oncology
DX: E61.0 Copper deficiency (principal); D51.9 Vitamin B12 deficiency anemia, unspecified; D50.9 Iron deficiency anemia, unspecified; K91.2 Postsurgical malabsorption, not elsewhere classified; Z79.899 Other long term (current) drug therapy
CPT/HCPCS: 96365; 96367; 96368; 96372; J0610; J1439; J3420; J3490; J7050

== ENCOUNTER 2021-11-14 08:30 | Oncology outpatient (recurring) (ONCR) | payer OTHER, SELFPAY ==
[2021-10-18 11:44] LABS: Basophils % 0.7 %; Eosinophils % 0.9 %; Hematocrit 32.6 % (37.0-47.0); Hemoglobin 10.4 g/dL (11.5-15.3); Lymphocytes # 0.8 10^3/uL (0.8-4.8); Lymphocytes % 19.6 %; Mean Corpuscular HGB Conc 31.9 g/dL (30.0-36.0); Mean Corpuscular Hemoglobin 31.5 pg (28.0-34.0); Mean Corpuscular Volume 98.8 fl (81-99); Monocytes # 0.4 10^3/uL (0.2-0.9); Neutrophils # 2.94 10^3/uL (1.8-7.7); Neutrophils % 69.6 %; Nucleated Red Blood Cells % 0 %; Platelet Count 161 10^3/cmm (130-400); Red Cell Distribution Width 12.9 % (12.1-15.1); White Blood Count 4.2 10^3/uL (4.0-10.0)
[2021-10-18 12:19] LABS: Alanine Aminotransferase 28 U/L (0-33); Albumin Level 4.1 g/dL (3.5-5.2); Alkaline Phosphatase 129 IU/L (35-105); Anion Gap 11.4 (5-19); Aspartate Amino Transferase 22 U/L (0-32); Blood Urea Nitrogen 11 mg/dL (6-20); Calcium 8.5 mg/dL (8.5-10.5); Carbon Dioxide 21 mmol/L (22-29); Chloride 112 mmol/L (98-107); Free T4 Free Thyroxine 2.01 ng/dL (0.82-1.77); Globulin 1.5 g/dL (1.3-4.6); Glomerular Filtration Rate 105.8 mL/min (90-130); Glucose 110 mg/dL (65-115); Osmolality Calculated 292 mOsm/kg (285-295); Potassium 3.4 mmol/L (3.5-5.1); Sodium 141 mmol/L (136-145); T3 Free 3.6 PG/ML (2.0-4.4); Thyroid Stimulating Hormone 0.01 uIU/mL (0.27-4.20); Total Bilirubin 0.2 mg/dL (0.15-1.2); Total Protein 5.6 g/dL (6.6-8.7)
[2021-10-18 12:40] LABS: 25 Hydroxy Vitamin D 6 ng/mL (30-100); Ferritin 772 ng/mL (15-150); Iron 116 ug/dL (37-145); Percent Saturation 34.3 % (20-50); Total Iron Binding Capacity 338 mcg/dl; Unsaturated Iron Binding 222 ug/dL (112-347); Vitamin B12 804 pg/mL (232-1245)
[2021-10-18] MEDS: [UNRECOGNIZED DRUG - OTHER] IV (15:10)
[2021-10-18] MEDS: MULTIVITAMIN IV (15:10)
[2021-10-18] MEDS: CALCIUM GLUCONATE IV (15:10)
[2021-10-18] MEDS: CUPRIC CHLORIDE IV (15:10)
[2021-10-18] MEDS: cyanocobalamin 1,000 mcg/mL SDV 1000 MCG IM (16:03)
[2021-10-18 16:13] VITALS: BP 123/78; PULSE 70; RESP 18; TEMP 37.2; O2SAT 99
[2021-10-18 16:16] VITALS: BP 123/78; PULSE 70; RESP 18; TEMP 37.2; O2SAT 99
[2021-10-22 00:18] LABS: Methylmalonic Acid 117 nmol/L (87-318)
[2021-10-23 09:11] VITALS: BP 112/73; PULSE 75; RESP 18; TEMP 37.1; O2SAT 99
[2021-10-23] MEDS: MULTIVITAMIN IV (09:37)
[2021-10-23] MEDS: CUPRIC CHLORIDE IV (09:37)
[2021-10-23] MEDS: CALCIUM GLUCONATE IV (09:37)
[2021-10-23] MEDS: [UNRECOGNIZED DRUG - OTHER] IV (09:37)
[2021-10-23] MEDS: cyanocobalamin 1,000 mcg/mL SDV 1000 MCG IM (10:24)
[2021-10-23 10:39] VITALS: BP 107/70; PULSE 76; RESP 18; TEMP 36.4; O2SAT 96
[2021-10-30 08:37] VITALS: BP 110/71; PULSE 83; RESP 18; TEMP 36.7; O2SAT 98
[2021-10-30] MEDS: CUPRIC CHLORIDE IV (09:07)
[2021-10-30] MEDS: MULTIVITAMIN IV (09:07)
[2021-10-30] MEDS: [UNRECOGNIZED DRUG - OTHER] IV (09:07)
[2021-10-30] MEDS: CALCIUM GLUCONATE IV (09:07)
[2021-10-30] MEDS: cyanocobalamin 1,000 mcg/mL SDV 1000 MCG IM (09:08)
[2021-10-30 09:57] VITALS: RESP 18
[2021-11-06] MEDS: CALCIUM GLUCONATE IV (09:03)
[2021-11-06] MEDS: MULTIVITAMIN IV (09:03)
[2021-11-06] MEDS: CUPRIC CHLORIDE IV (09:03)
[2021-11-06] MEDS: [UNRECOGNIZED DRUG - OTHER] IV (09:03)
[2021-11-06] MEDS: cyanocobalamin 1,000 mcg/mL SDV 1000 MCG IM (10:00)
[2021-11-06 10:06] VITALS: BP 107/70; PULSE 76; RESP 18; TEMP 36.7; O2SAT 96
[2021-11-14 08:42] VITALS: BP 116/70; PULSE 94; RESP 18; TEMP 36.9; O2SAT 99
[2021-11-14] MEDS: cyanocobalamin 1,000 mcg/mL SDV 1000 MCG IM (08:44)
[2021-11-14] MEDS: CUPRIC CHLORIDE IV (08:49)
[2021-11-14] MEDS: MULTIVITAMIN IV (08:49)
[2021-11-14] MEDS: [UNRECOGNIZED DRUG - OTHER] IV (08:49)
[2021-11-14] MEDS: CALCIUM GLUCONATE IV (08:49)
[2021-11-14 09:43] VITALS: BP 113/75; PULSE 79; RESP 18; TEMP 37.1; O2SAT 96
== END 2021-11-14 23:59 | disposition home or self-care (01) ==
PROVIDERS: PCP Family Medicine; Visit Provider Internal Medicine Medical Oncology
DX: D51.8 Other vitamin B12 deficiency anemias (principal); E61.0 Copper deficiency
CPT/HCPCS: 80053; 82306; 82607; 82728; 83540; 83550; 83921; 84439; 84443; 84481; 85025; 96365; 96368; 96372; 99214; J0610; J3420; J3490; J7050

== ENCOUNTER 2021-12-11 08:30 | Oncology outpatient (recurring) (ONCR) | payer OTHER, SELFPAY ==
[2021-11-20 08:45] VITALS: BP 106/69; PULSE 74; RESP 18; TEMP 36.9; O2SAT 99
[2021-11-20] MEDS: MULTIVITAMIN IV (09:09)
[2021-11-20] MEDS: CUPRIC CHLORIDE IV (09:09)
[2021-11-20] MEDS: [UNRECOGNIZED DRUG - OTHER] IV (09:09)
[2021-11-20] MEDS: CALCIUM GLUCONATE IV (09:09)
[2021-11-20] MEDS: cyanocobalamin 1,000 mcg/mL SDV 1000 MCG IM (09:09)
[2021-11-20 09:58] VITALS: BP 117/76; PULSE 75; RESP 18; TEMP 36.7; O2SAT 97
[2021-11-27] MEDS: MULTIVITAMIN IV (09:13)
[2021-11-27] MEDS: [UNRECOGNIZED DRUG - OTHER] IV (09:13)
[2021-11-27] MEDS: CALCIUM GLUCONATE IV (09:13)
[2021-11-27] MEDS: CUPRIC CHLORIDE IV (09:13)
[2021-11-27] MEDS: cyanocobalamin 1,000 mcg/mL SDV 1000 MCG IM (10:06)
[2021-11-27 10:13] VITALS: BP 106/63; PULSE 71; RESP 18; TEMP 37.2; O2SAT 99
[2021-12-05] MEDS: CALCIUM GLUCONATE IV (09:34)
[2021-12-05] MEDS: MULTIVITAMIN IV (09:34)
[2021-12-05] MEDS: [UNRECOGNIZED DRUG - OTHER] IV (09:34)
[2021-12-05] MEDS: CUPRIC CHLORIDE IV (09:34)
[2021-12-05] MEDS: cyanocobalamin 1,000 mcg/mL SDV 1000 MCG IM (09:41)
[2021-12-05 09:49] VITALS: BP 112/69; PULSE 74; RESP 18; TEMP 36.7
[2021-12-05 15:21] VITALS: BP 124/78; PULSE 68; RESP 18; TEMP 37.1; O2SAT 98
[2021-12-11 08:49] VITALS: BMI 21.2
[2021-12-11] MEDS: [UNRECOGNIZED DRUG - OTHER] IV (08:55)
[2021-12-11] MEDS: CALCIUM GLUCONATE IV (08:55)
[2021-12-11] MEDS: CUPRIC CHLORIDE IV (08:55)
[2021-12-11] MEDS: MULTIVITAMIN IV (08:55)
[2021-12-11] MEDS: cyanocobalamin 1,000 mcg/mL SDV 1000 MCG IM (09:48)
[2021-12-11 09:56] VITALS: BP 116/74; PULSE 74; RESP 16; TEMP 36.7; O2SAT 96
== END 2021-12-14 23:59 | disposition home or self-care (01) ==
PROVIDERS: PCP Family Medicine; Visit Provider Internal Medicine Medical Oncology
DX: D51.8 Other vitamin B12 deficiency anemias (principal); Z53.9 Procedure and treatment not carried out, unspecified reason
CPT/HCPCS: 96365; 96368; 96372; J0610; J3420; J3490; J7050

== ENCOUNTER 2022-01-08 08:30 | Oncology outpatient (recurring) (ONCR) | payer OTHER, SELFPAY ==
[2021-12-19 08:48] VITALS: BP 103/65; PULSE 80; RESP 16; TEMP 37; O2SAT 100
[2021-12-19] MEDS: [UNRECOGNIZED DRUG - OTHER] IV (09:01)
[2021-12-19] MEDS: CALCIUM GLUCONATE IV (09:01)
[2021-12-19] MEDS: CUPRIC CHLORIDE IV (09:01)
[2021-12-19] MEDS: MULTIVITAMIN IV (09:01)
[2021-12-19] MEDS: cyanocobalamin 1,000 mcg/mL SDV 1000 MCG IM (09:06)
[2021-12-25] MEDS: [UNRECOGNIZED DRUG - OTHER] IV (09:01)
[2021-12-25] MEDS: CALCIUM GLUCONATE IV (09:01)
[2021-12-25] MEDS: CUPRIC CHLORIDE IV (09:01)
[2021-12-25] MEDS: MULTIVITAMIN IV (09:01)
[2021-12-25] MEDS: cyanocobalamin 1,000 mcg/mL SDV 1000 MCG IM (09:54)
[2021-12-25 09:58] VITALS: BP 113/71; PULSE 80; RESP 18; TEMP 36.8; O2SAT 97
[2022-01-01 08:44] VITALS: BP 113/70; PULSE 80; RESP 18; TEMP 36.8; O2SAT 95
[2022-01-01] MEDS: cyanocobalamin 1,000 mcg/mL SDV 1000 MCG IM (08:45)
[2022-01-01] MEDS: MULTIVITAMIN IV (08:55)
[2022-01-01] MEDS: [UNRECOGNIZED DRUG - OTHER] IV (08:55)
[2022-01-01] MEDS: CALCIUM GLUCONATE IV (08:55)
[2022-01-01] MEDS: CUPRIC CHLORIDE IV (08:55)
[2022-01-08 08:25] VITALS: BP 112/67; PULSE 90; RESP 18; TEMP 36.7; O2SAT 99
[2022-01-08] MEDS: cyanocobalamin 1,000 mcg/mL SDV 1000 MCG IM (08:38)
[2022-01-08] MEDS: CALCIUM GLUCONATE IV (08:59)
[2022-01-08] MEDS: [UNRECOGNIZED DRUG - OTHER] IV (08:59)
[2022-01-08] MEDS: CUPRIC CHLORIDE IV (08:59)
[2022-01-08] MEDS: MULTIVITAMIN IV (08:59)
[2022-01-08 09:52] VITALS: BP 103/55; PULSE 84; RESP 16; TEMP 37.4; O2SAT 100
== END 2022-01-14 23:59 | disposition home or self-care (01) ==
PROVIDERS: PCP Family Medicine; Visit Provider Internal Medicine Medical Oncology
DX: D51.9 Vitamin B12 deficiency anemia, unspecified (principal); Z79.899 Other long term (current) drug therapy
CPT/HCPCS: 96365; 96368; 96372; 96401; 96402; J0610; J3420; J3490; J7050

== ENCOUNTER 2022-02-12 08:30 | Oncology outpatient (recurring) (ONCR) | payer OTHER, SELFPAY ==
[2022-01-15 08:35] VITALS: BP 97/60; PULSE 101; RESP 16; TEMP 37.3; O2SAT 98
[2022-01-15] MEDS: MULTIVITAMIN IV (08:54)
[2022-01-15] MEDS: CALCIUM GLUCONATE IV (08:54)
[2022-01-15] MEDS: CUPRIC CHLORIDE IV (08:54)
[2022-01-15] MEDS: [UNRECOGNIZED DRUG - OTHER] IV (08:54)
[2022-01-15] MEDS: cyanocobalamin 1,000 mcg/mL SDV 1000 MCG IM (08:57)
[2022-01-22 08:21] VITALS: BP 128/83; PULSE 84; RESP 18; TEMP 36.4; O2SAT 100
[2022-01-22 08:40] LABS: Basophils % 0.7 %; Eosinophils % 0.9 %; Hematocrit 36.6 % (37.0-47.0); Hemoglobin 11.6 g/dL (11.5-15.3); Lymphocytes # 0.7 10^3/uL (0.8-4.8); Lymphocytes % 17.5 %; Mean Corpuscular HGB Conc 31.7 g/dL (30.0-36.0); Mean Corpuscular Hemoglobin 32.5 pg (28.0-34.0); Mean Corpuscular Volume 102.5 fl (81-99); Mean Platelet Volume 10.1 fL (7.4-10.4); Monocytes # 0.4 10^3/uL (0.2-0.9); Monocytes % 9.2 %; Neutrophils # 3.03 10^3/uL (1.8-7.7); Neutrophils % 71.5 %; Nucleated Red Blood Cells % 0 %; Platelet Count 197 10^3/cmm (130-400); Red Blood Count 3.57 10^6/uL (4.1-5.3); Red Cell Distribution Width 11.3 % (12.1-15.1); White Blood Count 4.2 10^3/uL (4.0-10.0)
[2022-01-22] MEDS: CALCIUM GLUCONATE IV (08:42)
[2022-01-22] MEDS: cyanocobalamin 1,000 mcg/mL SDV 1000 MCG IM (08:42)
[2022-01-22] MEDS: MULTIVITAMIN IV (08:42)
[2022-01-22] MEDS: [UNRECOGNIZED DRUG - OTHER] IV (08:42)
[2022-01-22] MEDS: CUPRIC CHLORIDE IV (08:42)
[2022-01-22 09:46] LABS: Alanine Aminotransferase 31 U/L (0-33); Albumin Level 4.2 g/dL (3.5-5.2); Alkaline Phosphatase 113 IU/L (35-105); Blood Urea Nitrogen 11 mg/dL (6-20); Calcium 8.8 mg/dL (8.5-10.5); Carbon Dioxide 20 mmol/L (22-29); Chloride 112 mmol/L (98-107); Free T4 Free Thyroxine 2.36 ng/dL (0.82-1.77); Globulin 2.2 g/dL (1.3-4.6); Glomerular Filtration Rate 130.6 mL/min (90-130); Glucose 84 mg/dL (65-115); Osmolality Calculated 293 mOsm/kg (285-295); Sodium 142 mmol/L (136-145); T3 Free 4.2 PG/ML (2.0-4.4); Thyroid Stimulating Hormone 0.01 uIU/mL (0.27-4.20); Total Bilirubin 0.2 mg/dL (0.15-1.2); Total Protein 6.4 g/dL (6.6-8.7)
[2022-01-22 09:49] LABS: Iron 122 ug/dL (37-145)
[2022-01-22 09:54] LABS: Anion Gap 15.2 (5-19); Potassium 5.2 mmol/L (3.5-5.1)
[2022-01-22 09:55] LABS: Aspartate Amino Transferase 30 U/L (0-32)
[2022-01-22 09:58] LABS: 25 Hydroxy Vitamin D 7 ng/mL (30-100)
[2022-01-22 09:59] LABS: Ferritin 561 ng/mL (15-150)
[2022-01-22 10:00] LABS: Percent Saturation 31.2 % (20-50); Total Iron Binding Capacity 390 mcg/dl; Unsaturated Iron Binding 268 ug/dL (112-347)
[2022-01-24 21:42] LABS: Copper Level 110 mcg/dL (70-175)
[2022-01-29 08:22] VITALS: BP 109/61; PULSE 85; RESP 18; TEMP 36.9; O2SAT 100
[2022-01-29] MEDS: cyanocobalamin 1,000 mcg/mL SDV 1000 MCG IM (08:29)
[2022-01-29] MEDS: CUPRIC CHLORIDE IV (08:37)
[2022-01-29] MEDS: MULTIVITAMIN IV (08:37)
[2022-01-29] MEDS: CALCIUM GLUCONATE IV (08:37)
[2022-01-29] MEDS: [UNRECOGNIZED DRUG - OTHER] IV (08:37)
[2022-01-29 09:25] VITALS: BP 116/73; PULSE 90; RESP 18; TEMP 37; O2SAT 99
[2022-02-05 08:32] VITALS: BMI 20.9
[2022-02-05] MEDS: MULTIVITAMIN IV (08:47)
[2022-02-05] MEDS: CALCIUM GLUCONATE IV (08:47)
[2022-02-05] MEDS: [UNRECOGNIZED DRUG - OTHER] IV (08:47)
[2022-02-05] MEDS: CUPRIC CHLORIDE IV (08:47)
[2022-02-05] MEDS: cyanocobalamin 1,000 mcg/mL SDV 1000 MCG IM (09:45)
[2022-02-05 09:47] VITALS: BP 104/68; PULSE 83; RESP 16; TEMP 37.1; O2SAT 98
[2022-02-12 08:35] VITALS: BP 106/73; PULSE 84; RESP 18; TEMP 37.3; O2SAT 98
[2022-02-12] MEDS: MULTIVITAMIN IV (08:51)
[2022-02-12] MEDS: CUPRIC CHLORIDE IV (08:51)
[2022-02-12] MEDS: CALCIUM GLUCONATE IV (08:51)
[2022-02-12] MEDS: [UNRECOGNIZED DRUG - OTHER] IV (08:51)
[2022-02-12] MEDS: cyanocobalamin 1,000 mcg/mL SDV 1000 MCG IM (09:48)
[2022-02-12 09:51] VITALS: BP 121/81; PULSE 85; RESP 18; TEMP 37.2; O2SAT 95
== END 2022-02-14 23:59 | disposition home or self-care (01) ==
PROVIDERS: Nurse Practitioner; PCP Family Medicine; Visit Provider Internal Medicine Medical Oncology
DX: D51.9 Vitamin B12 deficiency anemia, unspecified (principal); E61.0 Copper deficiency; Z79.899 Other long term (current) drug therapy
CPT/HCPCS: 80053; 82306; 82525; 82728; 83540; 83550; 84439; 84443; 84481; 85025; 96365; 96366; 96368; 96372; J0610; J3420; J3490; J7050

== ENCOUNTER 2022-03-12 08:30 | Oncology outpatient (recurring) (ONCR) | payer OTHER, SELFPAY ==
[2022-02-26 08:35] VITALS: BP 106/66; PULSE 81; RESP 16; TEMP 37; O2SAT 98
[2022-02-26] MEDS: CUPRIC CHLORIDE IV (08:56)
[2022-02-26] MEDS: [UNRECOGNIZED DRUG - OTHER] IV (08:56)
[2022-02-26] MEDS: CALCIUM GLUCONATE IV (08:56)
[2022-02-26] MEDS: MULTIVITAMIN IV (08:56)
[2022-02-26] MEDS: cyanocobalamin 1,000 mcg/mL SDV 1000 MCG IM (08:58)
[2022-02-26 09:41] VITALS: BP 114/77; PULSE 60; RESP 16; TEMP 37.1; O2SAT 99
[2022-03-05] MEDS: CUPRIC CHLORIDE IV (08:46)
[2022-03-05] MEDS: [UNRECOGNIZED DRUG - OTHER] IV (08:46)
[2022-03-05] MEDS: MULTIVITAMIN IV (08:46)
[2022-03-05] MEDS: CALCIUM GLUCONATE IV (08:46)
[2022-03-05 08:50] LABS: Basophils % 0.6 %; Eosinophils # 0.1 10^3/uL (0.0-0.8); Hemoglobin 11.3 g/dL (11.5-15.3); Lymphocytes # 1.6 10^3/uL (0.8-4.8); Lymphocytes % 31.7 %; Mean Corpuscular HGB Conc 31.4 g/dL (30.0-36.0); Mean Corpuscular Hemoglobin 31.6 pg (28.0-34.0); Mean Corpuscular Volume 100.6 fl (81-99); Mean Platelet Volume 10.2 fL (7.4-10.4); Monocytes # 0.4 10^3/uL (0.2-0.9); Monocytes % 7.8 %; Neutrophils # 2.95 10^3/uL (1.8-7.7); Neutrophils % 57.7 %; Nucleated Red Blood Cells % 0 %; Platelet Count 161 10^3/cmm (130-400); Red Blood Count 3.58 10^6/uL (4.1-5.3); Red Cell Distribution Width 11.5 % (12.1-15.1); White Blood Count 5.1 10^3/uL (4.0-10.0)
[2022-03-05 09:14] LABS: Ferritin 526 ng/mL (15-150); Iron 112 ug/dL (37-145); Percent Saturation 30.2 % (20-50); Total Iron Binding Capacity 370 mcg/dl; Unsaturated Iron Binding 258 ug/dL (112-347)
[2022-03-05] MEDS: cyanocobalamin 1,000 mcg/mL SDV 1000 MCG IM (09:40)
[2022-03-05 09:47] VITALS: BP 112/72; PULSE 72; RESP 16; TEMP 36.4; O2SAT 97
[2022-03-12] MEDS: CUPRIC CHLORIDE IV (08:55)
[2022-03-12] MEDS: MULTIVITAMIN IV (08:55)
[2022-03-12] MEDS: [UNRECOGNIZED DRUG - OTHER] IV (08:55)
[2022-03-12] MEDS: CALCIUM GLUCONATE IV (08:55)
[2022-03-12] MEDS: cyanocobalamin 1,000 mcg/mL SDV 1000 MCG IM (09:49)
[2022-03-12 09:58] VITALS: BP 107/66; PULSE 70; RESP 16; TEMP 36.2; O2SAT 99
== END 2022-03-16 23:59 | disposition home or self-care (01) ==
PROVIDERS: PCP Family Medicine; Visit Provider Internal Medicine Medical Oncology
DX: D51.9 Vitamin B12 deficiency anemia, unspecified (principal); E61.0 Copper deficiency; Z79.899 Other long term (current) drug therapy
CPT/HCPCS: 82728; 83540; 83550; 85025; 96365; 96368; 96372; J0610; J3420; J3490; J7050

== ENCOUNTER 2022-04-05 08:40 | Day surgery (SDC) | payer OTHER, SELFPAY ==
[2022-04-04 14:10] VITALS: BMI 21.6
[2022-04-05] VITALS (7 sets, daily range): BP systolic 110–131; BP diastolic 58–88; PULSE 81–90; RESP 10–16; TEMP 36.4–37.1; O2SAT 95–100
--- NOTE | 2022-04-05 | SCC_ITS ---
Procedure done: Mediport removal and Mediport placement 1.8 seconds of fluoroscopic guidance, for a cumulative dose of 0.2 mGy, was provided to Dr. Johnson by the radiology department. C-arm images of the chest were saved for the patient's permanent record. [facility]ALTHCharlee
--- NOTE | 2022-04-05 08:46 | SC_ITS ---
WS: [id number] C-arm fluoroscopy for port placement, 04/05/2022 Clinical Data: mediport replacement Comparison: None. Findings: A right sided Mediport has been inserted via the right subclavian vein. The tip ends in the superior vena cava. SC/C-arm FL for CVA [id number] Impression: Satisfactory Mediport insertion.
--- NOTE | 2022-04-05 08:46 | XRR_ITS ---
PROCEDURE INFORMATION: Exam: XR Chest Exam date and time: 04/05/2022 11:36 AM Age: 52 years old Clinical indication: Device placement; Other: Postop mediport placement; Prior surgery; Surgery date: Post-operative (0-2 days) TECHNIQUE: Imaging protocol: Radiologic exam of the chest. Views: 1 view. COMPARISON: CR XR chest 2V* [id number] 10/03/2015 7:46 PM FINDINGS: Tubes, catheters and devices: Chest port via the right subclavian approach with the tip projecting over the superior vena cava. Lungs: Lungs are well aerated without a focal area of consolidation. Pleural spaces: Unremarkable. No pleural effusion. No pneumothorax. Heart/Mediastinum: Unremarkable. No cardiomegaly. Bones/joints: Unremarkable. XR/XR chest 1V portable [id number] IMPRESSION: Lungs are well aerated without a focal area of consolidation.
[2022-04-05] MEDS: sodium chloride 0.9% 1,000 ML 30 ML IV (09:19)
--- NOTE | 2022-04-05 09:35 | W.PM.OPSUD ---
Surgery/Procedure H&P Update DATE OF PROCEDURE: April 05, 2022 DATE H&P PERFORMED: 04/03/22 PREOP DIAGNOSIS: mediport malfunction PLANNED PROCEDURE: Operation Date: 04/05/22 09:55 Proposed Procedures p removal and replacement of port a cath [id number],[id number](Not Applicable) - Chong Johnson DO s Portacath Placement(Not Applicable) - Chong Johnson DO
--- NOTE | 2022-04-05 10:01 | P.ANESASSM_ITS ---
Pre-Anesthetic Assessment Height/Weight: Height 1.6 m Weight 55.338 kg Temp Pulse BP Pulse Ox O2 Del Method 98.7 F 88 126/82 95 04/05/22 09:05 04/05/22 09:05 04/05/22 09:05 04/05/22 09:05 04/05/22 09:15 Preop Diagnosis: mediport malfunction Operation Date: 04/05/22 09:55 Proposed Procedures p removal and replacement of port a cath [id number],Z95.828(Not Applicable) - Chong Johnson DO s Portacath Placement(Not Applicable) - Chong Johnson DO Familial anesthetic complications: none Was Beta Marina taken within 24 hours: N/A Was Clonidine taken within 24 hours: N/A Last intake: Intake Last Liquid Date 04/04/22 Last Liquid Time 22:00 Last Solid Date 04/04/22 Last Solid Time 22:00 Social No alcohol and No tobacco Exam alert, oriented x 3, clear to auscultation bilaterally and regular rate & rhythm Airway Submandibular: within normal limits Cervical ROM: within normal limits Mallampati: Class I Dentition: false Pulmonary Asthma (as child) CV/HEM Hypertension (hypotension) and Palpitations (SVT) None reported Hepatic None reported GI None reported Metabolic Thyroid Disease [facility] None reported Neuropsych Seizure (Hx. Not in years per pt) and Transient Ischemic Attack Anesthetic Plan ASA status: 3 Anesthesia: MAC Risk of > 500 ml blood loss (7ml/kg in children): No Medications/Allergies Home Medications Medication Instructions Recorded Confirmed Last Taken Type acetaminophen 325 mg tablet 650 mg PO QID PRN Pain 10/18/21 04/05/22 04/04/22 History (Tylenol) cyanocobalamin (vitamin B-12) 1,000 mcg .Route .weekly 10/18/21 04/05/22 04/02/22 History 1,000 mcg/mL injection syringe diphenhydramine HCl 25 mg capsule See Rx Instructions PO QID PRN 10/18/21 04/05/22 04/04/22 History (Benadryl) Nausea ondansetron HCl 4 mg tablet See Rx Instructions PO Q4H PRN 10/18/21 04/05/22 04/04/22 History nausea and vomiting promethazine 25 mg tablet See Rx Instructions PO Q4H PRN 10/18/21 04/05/22 04/04/22 History Nausea And Vomiting levothyroxine 150 mcg tablet 150 mcg PO DAILY #30 tabs 01/24/22 04/05/22 04/04/22 Rx trazodone 150 mg tablet 150 mg PO DAILY 01/24/22 04/05/22 04/04/22 History tramadol 50 mg tablet 100 mg PO Q6H #240 tabs 03/07/22 04/05/22 04/05/22 06:00 Rx Allergies Allergy/AdvReac Type Severity Reaction Status Date / Time butorphanol [From Stadol] Allergy ADR-Halluci Verified 04/05/22 09:01 nating methylparaben Allergy ALGY-Anaphy Verified 04/05/22 09:01 laxis midazolam [From Versed] Allergy ALGY-Difficulty Verified 04/05/22 09:01 Breathing morphine Allergy ADR/ALGY-Pa Verified 04/05/22 09:01 lpitations Current Medications Generic Name Dose Route Start Last Admin Trade Name Freq PRN Reason Stop Dose Admin Sodium Chloride 1,000 mls @ 30 mls/hr 04/05/22 09:00 04/05/22 09:19 Sodium Chloride 0.9% IV 04/06/22 08:59 30 mls/hr .Q24H NARCISA Administration PFSH Anesthesia Medical History (Updated 04/03/22 @ 10:26 by Chong Johnson DO) Copper deficiency Essential (primary) hypertension History of intussusception History of panniculitis Hypothyroidism, unspecified Malabsorption Neurogenic bladder Other iron deficiency anemias Other vitamin B12 deficiency anemias Port-A-Cath in place Vitamin D deficiency Surgical History H/O gastric bypass (02/2002) H/O resection of rectum (04/2017) perineal proctectomy History of nasal surgery History of oral surgery 2021 - Teeth all extracted and dentures placed History of tonsillectomy History of tubal ligation History of umbilical hernia repair Hx laparoscopic cholecystectomy S/P laparotomy (10/2012) exploratory laparotomy with temporary ileostomy for bowel obstruction secondary to intussusception S/P percutaneous endoscopic gastrostomy (PEG) tube placement Family History Mother Cancer small cell lung cancer Father , COPD No problems noted. Brother Hypertension Brother Hypertension history of myocardial infarction Grandmother , vaginal skin cancer No problems noted. Social History Smoking and tobacco status: former smoker Second hand smoke exposure: No Smoking risk assessment/counseling performed?: Yes Alcohol intake: never Desire information about alcohol rehabilitation?: No Counseling given: No Desire information about substance/drug rehabilitation?: No Counseling given: No Data Anesthesia Cardiac Studies: No Data to Display
[2022-04-05] MEDS: ceFAZolin 2,000 MG in sodium chloride 0.9% (plus) 50 ML 100 MG IV (10:33)
[2022-04-05] MEDS: heparin 5,000 unit/mL INJ 1 mL 10000 UNIT SUBCUT (11:05)
--- NOTE | 2022-04-05 11:22 | P.OP_ITS ---
Operative Report Date of procedure: April 05, 2022 Pre-op diagnosis: Preop Diagnosis mediport malfunction Post-op diagnosis: same Procedure done: Mediport removal and Mediport placement Implants: PowerPort Specimens removed/disposition: Old Mediport Surgeon: Dr. Chong Johnson, DO Anesthesia: MAC Estimated blood loss (mL): 10 Complications: None apparent Brief History: This is a very pleasant 52-year-old female who uses a Mediport for infusions. Her Mediport started leaking and she needed replacement. Mediport removal Mediport placement were indicated. The risks and benefits were explained and documented. Procedure: The patient was taken to the operating room and placed supine on the operating room table. All bony prominences were padded. She was given IV sedation and monitored throughout the case by the anesthesia personnel. SCDs were placed and turned on. The arms were tucked to the side. Patient received Ancef 2 g preo peratively IV. The bilateral chest wall was prepped and draped in usual sterile fashion using chlorhexidine base prep. Sterile drapes were applied. We did procedure pause prior to beginning. 2% lidocaine with epinephrine was used to anesthetize the skin over the previous Mediport on the left anterior chest. A 15 blade scalpel was used to reopen the old incision. Dissection was carried down to the old Mediport and catheter using electrocautery. The Mediport was removed and the catheter was removed while pressure was held over the subclavian insertion site. 3-0 Vicryl was used to make a [id number] stitch over the tunnel where the catheter used to be. Hemostasis was noted. Dermis was approximated with 3-0 Vicryl and a subcuticular interrupted fashion. Attention was then brought to the patient's right side for Mediport placement. An 18 gauge needle was placed in the right subclavian vein. Dark, nonpulsatile blood was aspirated. A guidewire was placed through the needle centrally toward the atrial/vena caval junction. Fluoroscopy visualized good placement. The needle was removed and the guidewire was clipped to the drape with a hemostat. Further local anesthetic was infiltrated in the soft tissues of the right chest wall and a #15 blade was used to make a horizontal skin incision. A subcutaneous Mediport pocket was created using Bovie cautery, dissecting down through the skin and subcutaneous tissues. Meticulous hemostasis was achieved. The Mediport was sutured in position using 3-0 vicryl suture x2 stitches. A #15 blade was used to make a small skin omaira around the guidewire insertion area. The Mediport tubing was tunneled through the subcutaneous tissues up to the needle insertion location. A dilator with a peel-away sheath was placed over the guidewire and placed centrally. After measuring with fluoroscopy, the Mediport tubing was cut to length so that the tip would end at the atrial/vena caval junction. The inner cannula and the guidewire were removed, leaving the dilator sheath in place. The Mediport was flushed. The tip of the catheter was inserted through the peel-away sheath and the peel-away sheath removed in the standard fashion. The Mediport was accessed with a straight Castelan needle and dark, nonpulsatile blood was aspirated and flushed using heparinized saline to hep-lock the Mediport. Final fluoroscopy visualization showed no kink in the catheter and the tip of the Mediport tubing near the atrial/vena caval junction. Both skin incisions were thoroughly irrigated and suctioned dry. Meticulous hemostasis noted. The Mediport incision was closed using interrupted 3-0 Vicryl suture for the deep dermal layer and 4-0 Vicryl run to close the skin edge. The right subclavian insertion site incision was closed with a single subcuticular stitch. Skin glue was applied as a topical dressing. This was allowed to dry. Patient was awakened from anesthesia and transferred via her cart to the recovery room in stable condition. All needle, sponge, and instrument counts were correct per the operating personnel x2 counts.
--- NOTE | 2022-04-05 16:50 | ANE.PACU2 ---
Inpatient post-anesthesia follow up: Airway intact: Yes Vital signs: Temperature 97.5 F Pulse Rate 83 Respiratory Rate 16 Blood Pressure 110/88 Pulse Oximetry 99 Oxygen Delivery Me thod Room Air Oxygen Flow Rate Fraction of Inspir ed Oxygen Hydration adequate: Yes Nausea and vomiting: No Pain level: 2 Mental status: Baseline
== END 2022-04-05 12:27 | disposition home or self-care (01) ==
PROVIDERS: PCP Family Medicine; Visit Provider Surgery
PROC: (CPT 36589; principal; 2022-04-05 09:55)
PROC: (CPT 36561; 2022-04-05 09:55)
DX: Z45.2 Encounter for adjustment and management of vascular access device (principal); I10 Essential (primary) hypertension; Z86.73 Personal history of transient ischemic attack (TIA), and cerebral infarction without residual deficits; Z87.891 Personal history of nicotine dependence; Z90.49 Acquired absence of other specified parts of digestive tract; E03.9 Hypothyroidism, unspecified
CPT/HCPCS: 36561; 36590; 71045; 76000; 77001; C1788; J1644; J2250; J2704; J3010; J7030

== ENCOUNTER 2022-04-05 13:34 | Emergency (ER) | payer OTHER, SELFPAY ==
[2022-04-05 13:49] VITALS: BP 129/73; PULSE 95; RESP 18; TEMP 36.6; O2SAT 98; BMI 21.2
--- NOTE | 2022-04-05 13:49 | ED_ITS ---
HPI - General Adult General: Chief complaint: General Medical Stated complaint: bleeding from side Time Seen by Provider: 04/05/22 13:44 Source: patient Mode of arrival: ambulatory History of Present Illness: 52-year-old female presents emergency room with active bleeding from a port site for a port that was replaced earlier today. She reports 500 mL of blood loss at home her's clothes are soaked in blood and is active bleeding from the site initially. Direct pressure applied. She is complaining of lightheadedness and dizziness. No difficulty breathing. Onset (ago): minute(s) Location: chest Severity: severe Relieving factors: none Exacerbating factors: none Associated symptoms: Deny chest pain, confusion, cough, diaphoresis, decreased appetite, dyspnea, fevers/chills, headache(s), malaise, nausea, rash, palpitations, seizures, short of breath, syncope, vomiting or weakness Treatments prior to arrival: other (direct pressure) Review of Systems Const: Denies: fever(s), chills, fatigue, malaise or diaphoresis ENMT: Denies: throat pain, ear or mastoid pain, nasal discharge or nasal congestion Card: Denies: chest pain, palpitations, irregular heart rhythm, edema or syncope Resp: Denies: dyspnea, productive cough or non-productive cough GI: Denies: abdominal pain, nausea or vomiting : Denies: flank pain, difficulty voiding, dysuria, urinary frequency or urinary urgency Skin/Breast: Denies: rash Neuro: Denies: headache(s) or confusion PFSH ED PFSH: Medical History Copper deficiency Essential (primary) hypertension History of intussusception History of panniculitis Hypothyroidism, unspecified Malabsorption Neurogenic bladder Other iron deficiency anemias Other vitamin B12 deficiency anemias Port-A-Cath in place Vitamin D deficiency Surgical History H/O gastric bypass (02/2002) H/O resection of rectum (04/2017) perineal proctectomy History of nasal surgery History of oral surgery 2021 - Teeth all extracted and dentures placed History of tonsillectomy History of tubal ligation History of umbilical hernia repair Hx laparoscopic cholecystectomy S/P laparotomy (10/2012) exploratory laparotomy with temporary ileostomy for bowel obstruction secondary to intussusception S/P percutaneous endoscopic gastrostomy (PEG) tube placement Family History Mother Cancer small cell lung cancer Father , COPD No problems noted. Brother Hypertension Brother Hypertension history of myocardial infarction Grandmother , vaginal skin cancer No problems noted. Social History Smoking and tobacco status: former smoker Second hand smoke exposure: No Smoking risk assessment/counseling performed?: Yes Alcohol intake: never Desire information about alcohol rehabilitation?: No Counseling given: No Desire information about substance/drug rehabilitation?: No Counseling given: No Physical Exam Const: COMMON NORMALS: no acute distress GENERAL APPEARANCE: cooperative and comfortable ORIENTATION/CONSCIOUSNESS: Yes awake, Yes oriented to person, Yes oriented to place and Yes oriented to time HENMT: COMMON NORMALS: normocephalic, atraumatic and hearing grossly normal bilaterally HEAD & SCALP: normocephalic and atraumatic Chest: OTHER: Active bleeding from incision site above the port. Patient was holding pressure on the port itself on arrival. Room there is a large amount of blood soaking the patient's clothes was caked and clotted over her clothing. This was removed source of bleeding identified and direct pressure held which stopped bleeding shortly. Resp: COMMON NORMALS: normal respiratory effort, No retractions, No use of accessory muscles and clear to auscultation bilaterally AUSCULTATION: clear to auscultation bilaterally Cardio: COMMON NORMALS: regular rate, regular rhythm and No murmurs present (Cardio) RATE: regular rate RHYTHM: regular rhythm GI: COMMON NORMALS: Soft to palpation and No hepatosplenomegaly present AUSCULTATION: Yes normoactive bowel sounds PALPATION: Yes Soft to palpation, No Tenderness to palpation present (GI), No Guarding due to palpation present (GI) and Yes No hepatosplenomegaly present Extremity: COMMON NORMALS: normal to inspection, capillary refill normal, no clubbing, cyanosis or edema, no calf tenderness and no pedal edema Neuro: SENSORIUM/ORIENTATION: Yes oriented to person, Yes oriented to place and Yes oriented to time Skin: COMMON NORMALS: no rashes or lesions noted GENERAL SKIN EXAM: no rashes or lesions noted Course Vital Signs: Vital signs: Vital Signs Temperature 97.8 F 04/05/22 13:49 Pulse Rate 90 04/05/22 15:30 Respiratory Rate 16 04/05/22 15:30 Blood Pressure 136/82 04/05/22 15:54 Pulse Oximetry 97 04/05/22 15:54 Oxygen Delivery Me thod 04/05/22 13:49 MDM - General Adult Medical Decision Making Hemoglobin stable. Will discharge patient home she will need to repeat hemoglobin tomorrow she did lose a substantial amount of blood per her own report any amount of blood witnessed on her clothing. She is no active bleeding now CT reviewed with radiology and with Dr. Johnson. Discharge patient home she is no longer bleeding and is stable vital signs stable. Medical Records I reviewed the patient's medical records. Lab Data I reviewed the patient's lab results. : 04/05/22 13:45 04/05/22 13:[address] 04/05/22 13:57 IMPRESSION: 1. No evidence of large hematoma or active hemorrhage. No pneumothorax. 2. RIGHT Port-A-Cath appears in good position with tip in the distal SVC. 3. A few RIGHT supraclavicular and subclavicular varicosities varicosities may represent the source of venous bleeding near the subclavian insertion site. Small amount of infraclavicular edema along the catheter tract. 4. No other significant findings. Notified Artie Farris DO at 04/05/2022 2:53 PM. Laboratory Results WBC 6.1 10^3/uL (4.0-10.0) 04/05/22 13:45 RBC 3.53 10^6/uL (4.1-5.3) L 04/05/22 13:45 Hgb 11.4 g/dL (11.5-15.3) L 04/05/22 13:45 Hct 36.5 % (37.0-47.0) L 04/05/22 13:45 MCV 103.4 fl (81-99) H 04/05/22 13:45 MCH 32.3 pg (28.0-34.0) 04/05/22 13:45 MCHC 31.2 g/dL (30.0-36.0) 04/05/22 13:45 RDW 13.0 % (12.1-15.1) 04/05/22 13:45 Plt Count 170 10^3/cmm (130-400) 04/05/22 13:45 MPV 9.9 fL (7.4-10.4) 04/05/22 13:45 Neut % (Auto) 45.8 % 04/05/22 13:45 Lymph % (Auto) 43.1 % 04/05/22 13:45 [place] % (Auto) 7.9 % 04/05/22 13:45 Eos % (Auto) 2.1 % 04/05/22 13:45 Baso % (Auto) 0.8 % 04/05/22 13:45 Neut # (Auto) 2.76 10^3/uL (1.8-7.7) 04/05/22 13:45 Lymph # (Auto) 2.6 10^3/uL (0.8-4.8) 04/05/22 13:45 [place] # (Auto) 0.5 10^3/uL (0.2-0.9) 04/05/22 13:45 Eos # (Auto) 0.1 10^3/uL (0.0-0.8) 04/05/22 13:45 Baso # (Auto) 0.1 10^3/uL (0.0-0.1) 04/05/22 13:45 Nucleated RBC % (auto) 0 % 04/05/22 13:45 Nucleated RBCs # 0.0 /100WBC 04/05/22 13:45 PT 12.90 SECONDS (12.1-14.9) 04/05/22 13:45 INR 0.94 (0.8-1.2) 04/05/22 13:45 APTT 65.0 SECONDS (23.9-36.7) H 04/05/22 13:45 Sodium 135 mmol/L (136-145) L 04/05/22 13:45 Potassium 3.6 mmol/L (3.5-5.1) 04/05/22 13:45 Chloride 104 mmol/L (98-107) 04/05/22 13:45 Carbon Dioxide 18 mmol/L (22-29) L 04/05/22 13:45 Anion Gap 16.6 (5-19) 04/05/22 13:45 BUN 8 mg/dL (6-20) 04/05/22 13:45 Creatinine 1.0 mg/dL (0.5-0.9) H 04/05/22 13:45 GFR Calculation 58.5 mL/min (90-130) L 04/05/22 13:45 Glucose 107 mg/dL (65-115) 04/05/22 13:45 Calculated Osmolality 279 mOsm/kg (285-295) L 04/05/22 13:45 Calcium 8.6 mg/dL (8.5-10.5) 04/05/22 13:45 Total Bilirubin 0.2 mg/dL (0.15-1.2) 04/05/22 13:45 AST 31 U/L (0-32) 04/05/22 13:45 ALT 33 U/L (0-33) 04/05/22 13:45 Alkaline Phosphatase 108 U/L (35-105) H 04/05/22 13:45 Total Protein 6.5 g/dL (6.6-8.7) L 04/05/22 13:45 Albumin 4.2 g/dL (3.5-5.2) 04/05/22 13:45 Globulin 2.3 g/dL (1.3-4.6) 04/05/22 13:45 Blood Type A Positive 04/05/22 13:45 Rho(D) Type Positive 04/05/22 13:45 Antibody Screen Negative 04/05/22 13:45 Discharge Plan Discharge Patient Disposition: Home Clinical Impression: Encounter for care related to Port-a-Cath, Post-operative complication Condition: Stable Prescriptions: No Action diphenhydramine HCl [Benadryl] 25 mg capsule 50 - 100 mg PO QID PRN (Reason: unknown) promethazine 25 mg tablet 25 - 50 mg PO Q4H PRN (Reason: Nausea And Vomiting) ondansetron HCl 4 mg tablet 4 - 8 mg PO Q4H PRN (Reason: nausea and vomiting) cyanocobalamin (vitamin B-12) 1,000 mcg/mL syringe 1,000 mcg .Route Q7D Rx Instructions: given once weekly in office on mondays acetaminophen [Tylenol] 325 mg tablet 650 mg PO QID PRN (Reason: Pain) trazodone 150 mg tablet 150 mg PO BEDTIME levothyroxine 150 mcg tablet 150 mcg PO DAILY Qty: 30 0RF tramadol 50 mg tablet 100 mg PO Q6H Qty: 240 0RF Discharge Orders: Discharge ED (Routine); Ordered 04/05/22 Ordered By: Artie Farris Referrals: Jesse Monet MD [Primary Care Provider] - Discharge Diet: Usual diet Discharge Activity: Limit activity as instructed Patient Instructions: Opioid Safety, Pain Management Activity Restrictions/Additional Instructions: Follow-up with surgery as previously scheduled. Return to emergency room if there is any further bleeding. Coding Level of Care Code ED Offset Assistant Press Operator for Darrick Chowdary
--- NOTE | 2022-04-05 13:57 | CT_ITS ---
WS: [id number] CT CHEST TECHNIQUE: Contrast enhanced CT of the chest with coronal and sagittal reformatted images. CLINICAL INFORMATION: bleeding from sublclavian COMPARISON: None. DLP: 254.[address] scans at [facility] use at least one of these dose optimization techniques: automated e xposure control; mA and/or kV adjustment per patient size (includes targeted exams where dose is matc hed to clinical indication); or iterative reconstruction. FINDINGS: History of recent subclavian port placement. Postoperative changes in the RIGHT chest wall from recen t Port-A-Cath placement. No evidence of large hematoma in this location. Catheter in good position. N o evidence of mediastinal hematoma or pneumothorax. Small amount of edema along the catheter tract No evidence of drainable fluid collection or large hematoma. A few lobulated small venous varicositie s anterior chest wall including supraclavicular and subclavicular near the catheter tract. Small amou nt of subclavicular edema. Small varicosities best seen on coronal imaging. Thoracolumbar scoliosis. Moderate thoracic kyphosis. Lungs are well aerated. No acute pulmonary infiltrates. No pericardial effusion. Adrenal glands are n ormal. Prior cholecystectomy. Partially visualized gastrostomy tube. CT/CT chest w con* [id number] IMPRESSION: 1. No evidence of large hematoma or active hemorrhage. No pneumothorax. 2. RIGHT Port-A-Cath appears in good position with tip in the distal SVC. 3. A few RIGHT supraclavicular and subclavicular varicosities varicosities may represent the source of venous bleeding near the subclavian insertion site. Sm all amount of infraclavicular edema along the catheter tract. 4. No other significant findings. Notified Artie Farris DO at 04/05/2022 2:53 PM.
[2022-04-05 14:00] LABS: Basophils # 0.1 10^3/uL (0.0-0.1); Basophils % 0.8 %; Eosinophils # 0.1 10^3/uL (0.0-0.8); Eosinophils % 2.1 %; Hematocrit 36.5 % (37.0-47.0); Hemoglobin 11.4 g/dL (11.5-15.3); Lymphocytes # 2.6 10^3/uL (0.8-4.8); Lymphocytes % 43.1 %; Mean Corpuscular HGB Conc 31.2 g/dL (30.0-36.0); Mean Corpuscular Hemoglobin 32.3 pg (28.0-34.0); Mean Corpuscular Volume 103.4 fl (81-99); Mean Platelet Volume 9.9 fL (7.4-10.4); Monocytes # 0.5 10^3/uL (0.2-0.9); Monocytes % 7.9 %; Neutrophils # 2.76 10^3/uL (1.8-7.7); Neutrophils % 45.8 %; Nucleated Red Blood Cells % 0 %; Platelet Count 170 10^3/cmm (130-400); Red Blood Count 3.53 10^6/uL (4.1-5.3); White Blood Count 6.1 10^3/uL (4.0-10.0)
[2022-04-05 14:10] VITALS: BP 128/82; PULSE 85; RESP 16; O2SAT 98
[2022-04-05 14:11] LABS: INR 0.94 (0.8-1.2)
[2022-04-05] MEDS: iohexol 350 mg/mL 100 mL Btl IV (14:11)
[2022-04-05 14:22] LABS: Alanine Aminotransferase 33 U/L (0-33); Albumin Level 4.2 g/dL (3.5-5.2); Alkaline Phosphatase 108 U/L (35-105); Aspartate Amino Transferase 31 U/L (0-32); Blood Urea Nitrogen 8 mg/dL (6-20); Calcium 8.6 mg/dL (8.5-10.5); Carbon Dioxide 18 mmol/L (22-29); Chloride 104 mmol/L (98-107); Globulin 2.3 g/dL (1.3-4.6); Glomerular Filtration Rate 58.5 mL/min (90-130); Glucose 107 mg/dL (65-115); Osmolality Calculated 279 mOsm/kg (285-295); Sodium 135 mmol/L (136-145); Total Bilirubin 0.2 mg/dL (0.15-1.2); Total Protein 6.5 g/dL (6.6-8.7)
--- NOTE | 2022-04-05 14:25 | PC.PHAR ---
pt states she takes care of her own medications-pt states the medications we had on the previous list were all correct
[2022-04-05 14:27] LABS: Anion Gap 16.6 (5-19); Potassium 3.6 mmol/L (3.5-5.1)
[2022-04-05 14:30] VITALS: BP 114/64; PULSE 79; RESP 16; O2SAT 100
[2022-04-05 15:30] VITALS: BP 136/82; PULSE 90; RESP 16; O2SAT 99
--- NOTE | 2022-04-05 15:53 | PC.NURSE ---
PT ARRIVED TO ED BLEEDING FROM POST OP SITE. PHYSICIAN INSTRUCTED TO APPLY MANUAL PRESSURE TO SITE FOR 25 MINUTES. PT STATES SHE THINKS SHE LOST AT LEAST 500ML OF BLOOD AT HOME. PRESSURE APPLIED FOR TIME ORDERED. PT TAKEN TO CT. AFTER ARRIVING BACK TO ER PRESSURE DRESSING APPLIED.
[2022-04-05 15:54] VITALS: BP 136/82; O2SAT 97
== END 2022-04-05 15:50 | disposition home or self-care (01) ==
PROVIDERS: Emergency Provider Family Medicine; PCP Family Medicine
DX: Z45.2 Encounter for adjustment and management of vascular access device (principal); T82.838A Hemorrhage due to vascular prosthetic devices, implants and grafts, initial encounter; Z87.891 Personal history of nicotine dependence; I10 Essential (primary) hypertension
CPT/HCPCS: 71260; 80053; 85025; 85610; 85730; 86850; 86900; 99285; Q9967

== ENCOUNTER 2022-04-16 08:30 | Oncology outpatient (recurring) (ONCR) | payer OTHER, SELFPAY ==
[2022-03-19 08:28] VITALS: BP 131/84; PULSE 78; RESP 18; TEMP 36.7; O2SAT 99
[2022-03-19] MEDS: CALCIUM GLUCONATE IV (08:43)
[2022-03-19] MEDS: CUPRIC CHLORIDE IV (08:43)
[2022-03-19] MEDS: [UNRECOGNIZED DRUG - OTHER] IV (08:43)
[2022-03-19] MEDS: MULTIVITAMIN IV (08:43)
[2022-03-19] MEDS: cyanocobalamin 1,000 mcg/mL SDV 1000 MCG IM (08:50)
[2022-03-19 09:32] VITALS: BP 134/85; PULSE 81; RESP 18; TEMP 36.1; O2SAT 95
[2022-03-26] MEDS: CALCIUM GLUCONATE IV (09:02)
[2022-03-26] MEDS: CUPRIC CHLORIDE IV (09:02)
[2022-03-26] MEDS: MULTIVITAMIN IV (09:02)
[2022-03-26] MEDS: [UNRECOGNIZED DRUG - OTHER] IV (09:02)
[2022-03-26] MEDS: cyanocobalamin 1,000 mcg/mL SDV 1000 MCG IM (10:00)
[2022-04-02] MEDS: [UNRECOGNIZED DRUG - OTHER] IV (08:46)
[2022-04-02] MEDS: MULTIVITAMIN IV (08:46)
[2022-04-02] MEDS: CUPRIC CHLORIDE IV (08:46)
[2022-04-02] MEDS: CALCIUM GLUCONATE IV (08:46)
--- NOTE | 2022-04-02 09:30 | IR_ITS ---
WS: [id number] Fluoroscopic evaluation LEFT Port-A-Cath. HISTORY: LEFT Port-A-Cath malfunction. Fluoroscopy time: 1 minute. Fluoroscopy spots: 8. Omnipaque 240; 30 cc. Oncology nurse access the Port-A-Cath under sterile conditions. Fluoroscopic evaluation reveals a cat heter appears to be in good position. During early injection of Omnipaque 240 contrast is noted to ac tively extravasate around the hub of the Port-A-Cath also there is focal contrast opacification exter nal to the catheter over the pectoralis muscle. Suspect there is a fracture within the catheter just lateral to the rib. IR/[place] [id number] IMPRESSION: 1. Abnormal appearance of the Port-A-Cath. Contrast does not fill the entire ca theter. 2. Two areas of abnormal opacification associated with the Port-A-Cath. Extrav asation surrounding the Port-A-Cath over the chest wall and also extravasation along the pectoralis muscle. Suspect there is a fracture within the catheter ju st lateral to the rib.
--- NOTE | 2022-04-02 09:41 | FL_ITS ---
WS: [id number] Fluoroscopic evaluation LEFT Port-A-Cath. HISTORY: LEFT Port-A-Cath malfunction. Fluoroscopy time: 1 minute. Fluoroscopy spots: 8. Omnipaque 240; 30 cc. Oncology nurse access the Port-A-Cath under sterile conditions. Fluoroscopic evaluation reveals a cat heter appears to be in good position. During early injection of Omnipaque 240 contrast is noted to ac tively extravasate around the hub of the Port-A-Cath also there is focal contrast opacification exter nal to the catheter over the pectoralis muscle. Suspect there is a fracture within the catheter just lateral to the rib.
[2022-04-02] MEDS: cyanocobalamin 1,000 mcg/mL SDV 1000 MCG IM (09:42)
[2022-04-02] MEDS: iohexol 300 mg/mL 100 mL Btl IV (10:12)
[2022-04-09 08:56] LABS: Basophils # 0.1 10^3/uL (0.0-0.1); Basophils % 0.9 %; Eosinophils # 0.3 10^3/uL (0.0-0.8); Eosinophils % 5.4 %; Hematocrit 34.5 % (37.0-47.0); Hemoglobin 10.7 g/dL (11.5-15.3); Lymphocytes # 1.8 10^3/uL (0.8-4.8); Lymphocytes % 32.6 %; Mean Corpuscular Hemoglobin 31.9 pg (28.0-34.0); Monocytes # 0.6 10^3/uL (0.2-0.9); Monocytes % 10.5 %; Neutrophils % 50.4 %; Nucleated Red Blood Cells % 0 %; Platelet Count 168 10^3/cmm (130-400); Red Blood Count 3.35 10^6/uL (4.1-5.3); Red Cell Distribution Width 12.8 % (12.1-15.1); White Blood Count 5.6 10^3/uL (4.0-10.0)
[2022-04-09] MEDS: [UNRECOGNIZED DRUG - OTHER] IV (09:30)
[2022-04-09] MEDS: MULTIVITAMIN IV (09:30)
[2022-04-09] MEDS: CALCIUM GLUCONATE IV (09:30)
[2022-04-09] MEDS: CUPRIC CHLORIDE IV (09:30)
[2022-04-09] MEDS: cyanocobalamin 1,000 mcg/mL SDV 1000 MCG IM (10:26)
[2022-04-09 10:30] VITALS: BP 102/66; PULSE 80; RESP 16; TEMP 37.1; O2SAT 98
[2022-04-16] MEDS: CUPRIC CHLORIDE IV (08:50)
[2022-04-16] MEDS: [UNRECOGNIZED DRUG - OTHER] IV (08:50)
[2022-04-16] MEDS: CALCIUM GLUCONATE IV (08:50)
[2022-04-16] MEDS: MULTIVITAMIN IV (08:50)
[2022-04-16] MEDS: cyanocobalamin 1,000 mcg/mL SDV 1000 MCG IM (09:53)
[2022-04-16 10:00] VITALS: BP 110/73; PULSE 73; RESP 18; TEMP 36.9; O2SAT 99
== END 2022-04-16 23:59 | disposition home or self-care (01) ==
PROVIDERS: PCP Family Medicine; Visit Provider Internal Medicine Medical Oncology
DX: D51.9 Vitamin B12 deficiency anemia, unspecified (principal); E61.0 Copper deficiency; Z79.899 Other long term (current) drug therapy; D50.8 Other iron deficiency anemias
CPT/HCPCS: 36591; 36598; 76000; 85025; 96365; 96372; 96402; J0610; J3420; J3490; J7050; Q9967

== ENCOUNTER 2022-05-14 08:30 | Oncology outpatient (recurring) (ONCR) | payer OTHER, SELFPAY ==
[2022-04-23] MEDS: CALCIUM GLUCONATE IV (08:50)
[2022-04-23] MEDS: MULTIVITAMIN IV (08:50)
[2022-04-23] MEDS: [UNRECOGNIZED DRUG - OTHER] IV (08:50)
[2022-04-23] MEDS: CUPRIC CHLORIDE IV (08:50)
[2022-04-23] MEDS: cyanocobalamin 1,000 mcg/mL SDV 1000 MCG IM (09:20)
[2022-04-23 09:40] VITALS: BP 119/74; PULSE 74; RESP 18; TEMP 36.7; O2SAT 100
[2022-04-30] MEDS: CUPRIC CHLORIDE IV (08:55)
[2022-04-30] MEDS: MULTIVITAMIN IV (08:55)
[2022-04-30] MEDS: [UNRECOGNIZED DRUG - OTHER] IV (08:55)
[2022-04-30] MEDS: CALCIUM GLUCONATE IV (08:55)
[2022-04-30] MEDS: cyanocobalamin 1,000 mcg/mL SDV 1000 MCG IM (09:50)
[2022-04-30 09:59] VITALS: BP 114/72; PULSE 75; RESP 16; TEMP 36.9; O2SAT 96
[2022-05-07] MEDS: cyanocobalamin 1,000 mcg/mL SDV 1000 MCG IM (08:23)
[2022-05-07] MEDS: CALCIUM GLUCONATE IV (08:30)
[2022-05-07] MEDS: [UNRECOGNIZED DRUG - OTHER] IV (08:30)
[2022-05-07] MEDS: CUPRIC CHLORIDE IV (08:30)
[2022-05-07] MEDS: MULTIVITAMIN IV (08:30)
[2022-05-07 09:19] VITALS: BP 122/77; PULSE 83; RESP 18; TEMP 36.4; O2SAT 97
[2022-05-14 08:36] VITALS: BP 114/74; PULSE 92; RESP 18; TEMP 37.3; O2SAT 97
[2022-05-14] MEDS: cyanocobalamin 1,000 mcg/mL SDV 1000 MCG IM (08:41)
[2022-05-14] MEDS: CUPRIC CHLORIDE IV (08:46)
[2022-05-14] MEDS: [UNRECOGNIZED DRUG - OTHER] IV (08:46)
[2022-05-14] MEDS: CALCIUM GLUCONATE IV (08:46)
[2022-05-14] MEDS: MULTIVITAMIN IV (08:46)
== END 2022-05-16 23:59 | disposition home or self-care (01) ==
PROVIDERS: PCP Family Medicine; Visit Provider Internal Medicine Medical Oncology
DX: D51.9 Vitamin B12 deficiency anemia, unspecified (principal); E61.0 Copper deficiency; Z79.899 Other long term (current) drug therapy; D50.8 Other iron deficiency anemias
CPT/HCPCS: 96365; 96366; 96372; 96402; J0610; J3420; J3490; J7050

== ENCOUNTER 2022-06-12 09:00 | Oncology outpatient (recurring) (ONCR) | payer OTHER, SELFPAY ==
[2022-05-21] MEDS: CUPRIC CHLORIDE IV (08:57)
[2022-05-21] MEDS: MULTIVITAMIN IV (08:57)
[2022-05-21] MEDS: [UNRECOGNIZED DRUG - OTHER] IV (08:57)
[2022-05-21] MEDS: CALCIUM GLUCONATE IV (08:57)
[2022-05-21] MEDS: cyanocobalamin 1,000 mcg/mL SDV 1000 MCG IM (09:50)
[2022-05-21 09:58] VITALS: BP 126/89; PULSE 88; RESP 16; TEMP 37.1; O2SAT 98
[2022-05-28 08:59] LABS: Basophils % 0.5 %; Eosinophils # 0.1 10^3/uL (0.0-0.8); Eosinophils % 3.2 %; Hematocrit 36.2 % (37.0-47.0); Hemoglobin 11.2 g/dL (11.5-15.3); Lymphocytes # 1.7 10^3/uL (0.8-4.8); Mean Corpuscular HGB Conc 30.9 g/dL (30.0-36.0); Mean Corpuscular Hemoglobin 31.5 pg (28.0-34.0); Mean Platelet Volume 10.1 fL (7.4-10.4); Monocytes # 0.4 10^3/uL (0.2-0.9); Monocytes % 8.8 %; Neutrophils # 1.86 10^3/uL (1.8-7.7); Neutrophils % 45.3 %; Nucleated Red Blood Cells % 0 %; Platelet Count 190 10^3/cmm (130-400); Red Blood Count 3.55 10^6/uL (4.1-5.3); Red Cell Distribution Width 11.4 % (12.1-15.1); White Blood Count 4.1 10^3/uL (4.0-10.0)
[2022-05-28] MEDS: CUPRIC CHLORIDE IV (09:07)
[2022-05-28] MEDS: [UNRECOGNIZED DRUG - OTHER] IV (09:07)
[2022-05-28] MEDS: CALCIUM GLUCONATE IV (09:07)
[2022-05-28] MEDS: MULTIVITAMIN IV (09:07)
[2022-05-28 09:12] LABS: Alanine Aminotransferase 21 U/L (0-33); Alkaline Phosphatase 124 U/L (35-105); Anion Gap 14.6 (5-19); Aspartate Amino Transferase 19 U/L (0-32); Blood Urea Nitrogen 10 mg/dL (6-20); Calcium 8.5 mg/dL (8.5-10.5); Carbon Dioxide 20 mmol/L (22-29); Chloride 106 mmol/L (98-107); Glomerular Filtration Rate 58.5 mL/min (90-130); Glucose 85 mg/dL (65-115); Osmolality Calculated 282 mOsm/kg (285-295); Potassium 3.6 mmol/L (3.5-5.1); Sodium 137 mmol/L (136-145); Total Bilirubin 0.2 mg/dL (0.15-1.2)
[2022-05-28] MEDS: cyanocobalamin 1,000 mcg/mL SDV 1000 MCG IM (10:03)
[2022-05-28 10:10] VITALS: BP 103/67; PULSE 76; RESP 16; TEMP 36.6; O2SAT 95
[2022-06-04] MEDS: CALCIUM GLUCONATE IV (08:39)
[2022-06-04] MEDS: CUPRIC CHLORIDE IV (08:39)
[2022-06-04] MEDS: MULTIVITAMIN IV (08:39)
[2022-06-04] MEDS: [UNRECOGNIZED DRUG - OTHER] IV (08:39)
[2022-06-04] MEDS: cyanocobalamin 1,000 mcg/mL SDV 1000 MCG IM (09:43)
[2022-06-04 09:53] VITALS: BP 141/83; PULSE 70; RESP 16; TEMP 36.8; O2SAT 95
== END 2022-06-16 23:59 | disposition home or self-care (01) ==
PROVIDERS: PCP Family Medicine; Visit Provider Internal Medicine Medical Oncology
DX: K91.2 Postsurgical malabsorption, not elsewhere classified
CPT/HCPCS: 80053; 85025; 90471; 90686; 96365; 96372; 96402; J0610; J3420; J3490; J7050

== ENCOUNTER → 2022-06-13 14:08 | Outpatient (BNVA) | payer OTHER, SELFPAY | PROVIDERS: PCP Family Medicine; Visit Provider Family Medicine | DX: R30.0 Dysuria (principal) | CPT/HCPCS: 81000; 87077; 87086; 87184 ==

== ENCOUNTER 2022-06-25 15:52 | Outpatient (CLI) | payer OTHER, SELFPAY ==
--- NOTE | 2022-06-25 16:00 | MR_ITS ---
WS: [id number] MRI BRAIN WITH AND WITHOUT CONTRAST HISTORY: headache. change in smell, nausea COMPARISON: 11/12/2006 TECHNIQUE: Multiplanar imaging performed through the brain with MultiHance 12 ml's IV. No acute infarcts are seen. Godinez-white matter differentiation is well preserved. No significant small vessel ischemic changes. No abnormality in Meckel's cave. No susceptibility artifacts or prior lacunar infarcts. Ventricles and extra-axial spaces are normal. Clivus and pituitary gland are normal. Visualized posterior fossa and brainstem are also normal. Postcontrast images are negative for masses or vascular malformations. Dural venous sinuses are normal. Paranasal sinuses: Well aerated with no significant disease. Mastoid air cells: Normal. Calvarium and scalp: Normal. MR/MR head wo/w con [id number] IMPRESSION: 1. Normal MRI brain with contrast. 2. No intracranial hemorrhage or enhancing mass. 3. Stable MRI brain since 11/12/2006.
[2022-06-25] MEDS: gadobenate dimeglumine 20 mL vial IV (16:42)
== END 2022-06-25 15:53 | disposition home or self-care (01) ==
LOC: RAD 15:52
PROVIDERS: PCP Family Medicine; Visit Provider Family Medicine
DX: R51.9 Headache, unspecified (principal)
CPT/HCPCS: 70553; A9577

== ENCOUNTER 2022-07-16 08:30 | Oncology outpatient (recurring) (ONCR) | payer OTHER, SELFPAY ==
[2022-06-19 08:55] VITALS: BP 123/86; PULSE 86; RESP 18; TEMP 37.1; O2SAT 95
[2022-06-19] MEDS: cyanocobalamin 1,000 mcg/mL SDV 1000 MCG IM (09:00)
[2022-06-19] MEDS: CALCIUM GLUCONATE IV (09:12)
[2022-06-19] MEDS: CUPRIC CHLORIDE IV (09:12)
[2022-06-19] MEDS: [UNRECOGNIZED DRUG - OTHER] IV (09:12)
[2022-06-19] MEDS: MULTIVITAMIN IV (09:12)
[2022-06-19 10:03] VITALS: BP 127/75; PULSE 77; RESP 16; TEMP 36.5; O2SAT 97
[2022-06-25] MEDS: CALCIUM GLUCONATE IV (09:11)
[2022-06-25] MEDS: MULTIVITAMIN IV (09:11)
[2022-06-25] MEDS: [UNRECOGNIZED DRUG - OTHER] IV (09:11)
[2022-06-25] MEDS: CUPRIC CHLORIDE IV (09:11)
[2022-06-25] MEDS: cyanocobalamin 1,000 mcg/mL SDV 1000 MCG IM (10:03)
[2022-06-25 10:08] VITALS: BP 109/73; PULSE 81; RESP 16; TEMP 36.2; O2SAT 98
[2022-07-02 08:28] VITALS: BP 103/70; PULSE 82; RESP 18; TEMP 36.7; O2SAT 97
[2022-07-02] MEDS: cyanocobalamin 1,000 mcg/mL SDV 1000 MCG IM (08:43)
[2022-07-02] MEDS: [UNRECOGNIZED DRUG - OTHER] IV (09:05)
[2022-07-02] MEDS: MULTIVITAMIN IV (09:05)
[2022-07-02] MEDS: CALCIUM GLUCONATE IV (09:05)
[2022-07-02] MEDS: CUPRIC CHLORIDE IV (09:05)
[2022-07-09] MEDS: MULTIVITAMIN IV (09:20)
[2022-07-09] MEDS: CUPRIC CHLORIDE IV (09:20)
[2022-07-09] MEDS: [UNRECOGNIZED DRUG - OTHER] IV (09:20)
[2022-07-09] MEDS: CALCIUM GLUCONATE IV (09:20)
[2022-07-09] MEDS: cyanocobalamin 1,000 mcg/mL SDV 1000 MCG IM (10:12)
[2022-07-09 10:21] VITALS: BP 126/71; PULSE 78; RESP 16; TEMP 36.6; O2SAT 99
== END 2022-07-17 23:59 | disposition home or self-care (01) ==
PROVIDERS: PCP Family Medicine; Visit Provider Internal Medicine Medical Oncology
DX: Z53.9 Procedure and treatment not carried out, unspecified reason
CPT/HCPCS: 96365; 96372; 96401; 96402; J0610; J3420; J3490; J7050

== ENCOUNTER 2022-08-13 08:30 | Oncology outpatient (recurring) (ONCR) | payer OTHER, SELFPAY ==
[2022-07-23 08:31] VITALS: BP 112/75; PULSE 86; RESP 18; TEMP 37; O2SAT 100
[2022-07-23] MEDS: cyanocobalamin 1,000 mcg/mL SDV 1000 MCG IM (08:36)
[2022-07-23] MEDS: CUPRIC CHLORIDE IV (08:42)
[2022-07-23] MEDS: MULTIVITAMIN IV (08:42)
[2022-07-23] MEDS: [UNRECOGNIZED DRUG - OTHER] IV (08:42)
[2022-07-23] MEDS: CALCIUM GLUCONATE IV (08:42)
[2022-07-30 09:01] VITALS: BP 112/79; PULSE 76; RESP 18; TEMP 36.7; O2SAT 97
[2022-07-30] MEDS: cyanocobalamin 1,000 mcg/mL SDV 1000 MCG IM (09:06)
[2022-07-30] MEDS: CUPRIC CHLORIDE IV (09:17)
[2022-07-30] MEDS: CALCIUM GLUCONATE IV (09:17)
[2022-07-30] MEDS: [UNRECOGNIZED DRUG - OTHER] IV (09:17)
[2022-07-30] MEDS: MULTIVITAMIN IV (09:17)
[2022-08-06] MEDS: [UNRECOGNIZED DRUG - OTHER] IV (08:41)
[2022-08-06] MEDS: CALCIUM GLUCONATE IV (08:41)
[2022-08-06] MEDS: CUPRIC CHLORIDE IV (08:41)
[2022-08-06] MEDS: MULTIVITAMIN IV (08:41)
[2022-08-06] MEDS: cyanocobalamin 1,000 mcg/mL SDV 1000 MCG IM (09:19)
[2022-08-06 09:30] VITALS: BP 109/73; PULSE 76; TEMP 37.4
[2022-08-13 08:46] VITALS: BP 117/80; PULSE 85; RESP 18; TEMP 36.9; O2SAT 97
[2022-08-13] MEDS: cyanocobalamin 1,000 mcg/mL SDV 1000 MCG IM (08:52)
[2022-08-13 08:53] LABS: Basophils % 0.8 %; Eosinophils # 0.1 10^3/uL (0.0-0.8); Eosinophils % 2.5 %; Hematocrit 37.8 % (37.0-47.0); Hemoglobin 11.7 g/dL (11.5-15.3); Lymphocytes # 1.6 10^3/uL (0.8-4.8); Lymphocytes % 33.3 %; Mean Corpuscular Hemoglobin 30.9 pg (28.0-34.0); Mean Corpuscular Volume 99.7 fl (81-99); Mean Platelet Volume 9.8 fL (7.4-10.4); Monocytes # 0.4 10^3/uL (0.2-0.9); Monocytes % 7.8 %; Neutrophils # 2.62 10^3/uL (1.8-7.7); Neutrophils % 55.4 %; Nucleated Red Blood Cells % 0 %; Platelet Count 176 10^3/cmm (130-400); Red Blood Count 3.79 10^6/uL (4.1-5.3); Red Cell Distribution Width 13.2 % (12.1-15.1); White Blood Count 4.7 10^3/uL (4.0-10.0)
[2022-08-13] MEDS: [UNRECOGNIZED DRUG - OTHER] IV (08:56)
[2022-08-13] MEDS: CUPRIC CHLORIDE IV (08:56)
[2022-08-13] MEDS: CALCIUM GLUCONATE IV (08:56)
[2022-08-13] MEDS: MULTIVITAMIN IV (08:56)
[2022-08-13 09:23] LABS: Alanine Aminotransferase 35 U/L (0-33); Albumin Level 4.1 g/dL (3.5-5.2); Alkaline Phosphatase 123 U/L (35-105); Anion Gap 12.7 (5-19); Aspartate Amino Transferase 39 U/L (0-32); Blood Urea Nitrogen 12 mg/dL (6-20); Calcium 8.6 mg/dL (8.5-10.5); Carbon Dioxide 19 mmol/L (22-29); Chloride 107 mmol/L (98-107); Globulin 2.3 g/dL (1.3-4.6); Glucose 104 mg/dL (65-115); Osmolality Calculated 280 mOsm/kg (285-295); Potassium 3.7 mmol/L (3.5-5.1); Sodium 135 mmol/L (136-145); Thyroid Stimulating Hormone 0.04 uIU/mL (0.27-4.20); Total Bilirubin 0.3 mg/dL (0.15-1.2); Total Protein 6.4 g/dL (6.6-8.7)
[2022-08-13 09:44] VITALS: BP 111/74; PULSE 74; RESP 16; TEMP 36.8; O2SAT 97
== END 2022-08-14 23:59 | disposition home or self-care (01) ==
PROVIDERS: Nurse Practitioner Family; PCP Family Medicine; Visit Provider Internal Medicine Medical Oncology
DX: D51.9 Vitamin B12 deficiency anemia, unspecified (principal); Z79.899 Other long term (current) drug therapy
CPT/HCPCS: 80053; 84443; 85025; 96365; 96372; J0610; J3420; J3490; J7050

== ENCOUNTER 2022-09-10 08:32 | Oncology outpatient (recurring) (ONCR) | payer OTHER, SELFPAY ==
[2022-08-20] MEDS: cyanocobalamin 1,000 mcg/mL SDV 1000 MCG IM (09:07)
[2022-08-20 09:28] LABS: Ferritin 289 ng/mL (15-150); Iron 78 ug/dL (37-145); Percent Saturation 19.7 % (20-50); Total Iron Binding Capacity 394 mcg/dl; Unsaturated Iron Binding 316 ug/dL (112-347)
[2022-08-20] MEDS: CUPRIC CHLORIDE IV (09:33)
[2022-08-20] MEDS: [UNRECOGNIZED DRUG - OTHER] IV (09:33)
[2022-08-20] MEDS: MULTIVITAMIN IV (09:33)
[2022-08-20] MEDS: CALCIUM GLUCONATE IV (09:33)
[2022-08-20 09:43] LABS: Vitamin B12 1381 pg/mL (232-1245)
[2022-08-20 10:20] VITALS: BP 129/77; PULSE 67; TEMP 36.8
[2022-08-20 11:32] LABS: 25 Hydroxy Vitamin D 8 ng/mL (30-100)
[2022-08-23 21:15] LABS: Copper Level 100 mcg/dL (70-175)
[2022-08-27] MEDS: CUPRIC CHLORIDE IV (08:54)
[2022-08-27] MEDS: CALCIUM GLUCONATE IV (08:54)
[2022-08-27] MEDS: MULTIVITAMIN IV (08:54)
[2022-08-27] MEDS: [UNRECOGNIZED DRUG - OTHER] IV (08:54)
[2022-08-27] MEDS: cyanocobalamin 1,000 mcg/mL SDV 1000 MCG IM (09:46)
[2022-08-27 09:57] VITALS: BP 117/77; PULSE 65; RESP 16; TEMP 36.6; O2SAT 99
[2022-09-03 08:32] VITALS: BP 105/72; PULSE 75; RESP 16; TEMP 36.9; O2SAT 99
[2022-09-03] MEDS: MULTIVITAMIN IV (09:04)
[2022-09-03] MEDS: [UNRECOGNIZED DRUG - OTHER] IV (09:04)
[2022-09-03] MEDS: CALCIUM GLUCONATE IV (09:04)
[2022-09-03] MEDS: CUPRIC CHLORIDE IV (09:04)
[2022-09-03 09:55] VITALS: BP 110/71; PULSE 74; RESP 16; TEMP 36.6; O2SAT 97
[2022-09-03 10:45] VITALS: BP 118/70; PULSE 67; RESP 16; TEMP 36.6; O2SAT 96
[2022-09-10] MEDS: MULTIVITAMIN IV (08:57)
[2022-09-10] MEDS: [UNRECOGNIZED DRUG - OTHER] IV (08:57)
[2022-09-10] MEDS: CUPRIC CHLORIDE IV (08:57)
[2022-09-10] MEDS: CALCIUM GLUCONATE IV (08:57)
[2022-09-10 09:10] VITALS: BP 125/88; PULSE 67; RESP 16; TEMP 36.1
[2022-09-10] MEDS: cyanocobalamin 1,000 mcg/mL SDV 1000 MCG IM (09:50)
[2022-09-10 09:58] VITALS: BP 133/79; PULSE 67; RESP 16; TEMP 36; O2SAT 98
== END 2022-09-14 23:59 | disposition home or self-care (01) ==
PROVIDERS: Nurse Practitioner Family; PCP Family Medicine; Visit Provider Internal Medicine Medical Oncology
DX: D51.9 Vitamin B12 deficiency anemia, unspecified (principal); Z79.899 Other long term (current) drug therapy
CPT/HCPCS: 82306; 82525; 82607; 82728; 83540; 83550; 96365; 96372; 96375; J0610; J3420; J3490; J7050

== ENCOUNTER 2022-10-08 08:30 | Oncology outpatient (recurring) (ONCR) | payer OTHER, SELFPAY ==
[2022-09-17 08:52] VITALS: BP 111/81; PULSE 85; RESP 16; TEMP 37.3; O2SAT 98
[2022-09-17] MEDS: [UNRECOGNIZED DRUG - OTHER] IV (09:03)
[2022-09-17] MEDS: CUPRIC CHLORIDE IV (09:03)
[2022-09-17] MEDS: MULTIVITAMIN IV (09:03)
[2022-09-17] MEDS: CALCIUM GLUCONATE IV (09:03)
[2022-09-17 09:53] VITALS: BP 121/85; PULSE 75; RESP 16; TEMP 37.1; O2SAT 98
[2022-09-24] MEDS: [UNRECOGNIZED DRUG - OTHER] IV (08:51)
[2022-09-24] MEDS: MULTIVITAMIN IV (08:51)
[2022-09-24] MEDS: CALCIUM GLUCONATE IV (08:51)
[2022-09-24] MEDS: CUPRIC CHLORIDE IV (08:51)
[2022-09-24] MEDS: cyanocobalamin 1,000 mcg/mL SDV 1000 MCG IM (09:39)
[2022-09-24 09:45] VITALS: BP 136/85; PULSE 64; RESP 16; TEMP 36.3; O2SAT 99
[2022-10-08 08:26] VITALS: BP 110/74; PULSE 88; RESP 16; TEMP 36.6; O2SAT 96
[2022-10-08] MEDS: cyanocobalamin 1,000 mcg/mL SDV 1000 MCG IM (08:35)
[2022-10-08] MEDS: CALCIUM GLUCONATE IV (08:42)
[2022-10-08] MEDS: MULTIVITAMIN IV (08:42)
[2022-10-08] MEDS: [UNRECOGNIZED DRUG - OTHER] IV (08:42)
[2022-10-08] MEDS: CUPRIC CHLORIDE IV (08:42)
[2022-10-08 09:39] VITALS: BP 113/77; PULSE 69; RESP 16; TEMP 36.8; O2SAT 98
== END 2022-10-14 23:59 | disposition home or self-care (01) ==
PROVIDERS: PCP Family Medicine; Visit Provider Internal Medicine Medical Oncology
DX: D51.8 Other vitamin B12 deficiency anemias (principal)
CPT/HCPCS: 96365; 96372; 96401; J0612; J3420; J3490; J7050

== ENCOUNTER 2022-11-13 08:30 | Oncology outpatient (recurring) (ONCR) | payer OTHER, SELFPAY ==
[2022-10-15 08:56] VITALS: BP 112/75; PULSE 85; RESP 16; TEMP 37.1; O2SAT 99
[2022-10-15] MEDS: MULTIVITAMIN IV (09:05)
[2022-10-15] MEDS: [UNRECOGNIZED DRUG - OTHER] IV (09:05)
[2022-10-15] MEDS: CALCIUM GLUCONATE IV (09:05)
[2022-10-15] MEDS: CUPRIC CHLORIDE IV (09:05)
[2022-10-15 09:58] VITALS: BP 104/65; PULSE 76; RESP 16; TEMP 36.4; O2SAT 99
[2022-10-22 09:14] VITALS: BP 132/84; PULSE 91; RESP 18; TEMP 37; O2SAT 97
[2022-10-22] MEDS: CALCIUM GLUCONATE IV (09:25)
[2022-10-22] MEDS: CUPRIC CHLORIDE IV (09:25)
[2022-10-22] MEDS: MULTIVITAMIN IV (09:25)
[2022-10-22] MEDS: [UNRECOGNIZED DRUG - OTHER] IV (09:25)
[2022-10-22] MEDS: cyanocobalamin 1,000 mcg/mL SDV 1000 MCG IM (09:26)
[2022-10-22 09:54] LABS: Thyroid Stimulating Hormone 0.02 uIU/mL (0.27-4.20)
[2022-10-22 10:21] VITALS: BP 124/80; PULSE 81; RESP 18; TEMP 36.8; O2SAT 98
[2022-10-29 08:40] VITALS: BP 122/77; PULSE 91; RESP 16; TEMP 36.4; O2SAT 98
[2022-10-29] MEDS: [UNRECOGNIZED DRUG - OTHER] IV (09:03)
[2022-10-29] MEDS: CALCIUM GLUCONATE IV (09:03)
[2022-10-29] MEDS: CUPRIC CHLORIDE IV (09:03)
[2022-10-29] MEDS: MULTIVITAMIN IV (09:03)
[2022-10-29 09:40] LABS: Free T4 Free Thyroxine 1.53 ng/dL (0.82-1.77)
[2022-11-05 08:40] VITALS: BP 116/74; PULSE 80; RESP 16; TEMP 36.3; O2SAT 99
[2022-11-05] MEDS: CALCIUM GLUCONATE IV ×2 (08:50→09:06)
[2022-11-05] MEDS: MULTIVITAMIN IV ×2 (08:50→09:06)
[2022-11-05] MEDS: [UNRECOGNIZED DRUG - OTHER] IV ×2 (08:50→09:06)
[2022-11-05] MEDS: CUPRIC CHLORIDE IV ×2 (08:50→09:06)
[2022-11-13 08:15] VITALS: BP 124/81; PULSE 75; RESP 16; TEMP 36.8; O2SAT 98
[2022-11-13] MEDS: CUPRIC CHLORIDE IV (08:55)
[2022-11-13] MEDS: [UNRECOGNIZED DRUG - OTHER] IV (08:55)
[2022-11-13] MEDS: MULTIVITAMIN IV (08:55)
[2022-11-13] MEDS: CALCIUM GLUCONATE IV (08:55)
[2022-11-13] MEDS: cyanocobalamin 1,000 mcg/mL SDV 1000 MCG IM (09:15)
[2022-11-13 09:45] VITALS: BP 119/81; PULSE 70; RESP 16; TEMP 36.5; O2SAT 91
== END 2022-11-14 23:59 | disposition home or self-care (01) ==
PROVIDERS: Nurse Practitioner Family; PCP Family Medicine; Visit Provider Internal Medicine Medical Oncology
DX: D51.9 Vitamin B12 deficiency anemia, unspecified (principal)
CPT/HCPCS: 84439; 84443; 96365; 96372; J0612; J1642; J3420; J3490; J7050

== ENCOUNTER 2022-12-10 08:30 | Oncology outpatient (recurring) (ONCR) | payer OTHER, SELFPAY ==
[2022-11-19 08:53] VITALS: BP 114/66; PULSE 90; RESP 16; TEMP 37.1; O2SAT 98
[2022-11-19] MEDS: [UNRECOGNIZED DRUG - OTHER] IV (09:01)
[2022-11-19] MEDS: CALCIUM GLUCONATE IV (09:01)
[2022-11-19] MEDS: CUPRIC CHLORIDE IV (09:01)
[2022-11-19] MEDS: MULTIVITAMIN IV (09:01)
[2022-11-19 10:01] VITALS: BP 110/67; PULSE 76; RESP 16; TEMP 37.2; O2SAT 99
[2022-11-26 08:10] VITALS: BP 116/80; PULSE 89; RESP 16; TEMP 36.6; O2SAT 98
[2022-11-26] MEDS: cyanocobalamin 1,000 mcg/mL SDV 1000 MCG IM (08:26)
[2022-11-26] MEDS: CALCIUM GLUCONATE IV (08:49)
[2022-11-26] MEDS: MULTIVITAMIN IV (08:49)
[2022-11-26] MEDS: [UNRECOGNIZED DRUG - OTHER] IV (08:49)
[2022-11-26] MEDS: CUPRIC CHLORIDE IV (08:49)
[2022-11-26 09:41] VITALS: BP 126/87; PULSE 81; RESP 16; TEMP 36.4; O2SAT 97
[2022-12-03 08:35] VITALS: BP 112/77; PULSE 85; RESP 16; TEMP 36.9; O2SAT 99
[2022-12-03] MEDS: [UNRECOGNIZED DRUG - OTHER] IV (08:59)
[2022-12-03] MEDS: MULTIVITAMIN IV (08:59)
[2022-12-03] MEDS: CUPRIC CHLORIDE IV (08:59)
[2022-12-03] MEDS: CALCIUM GLUCONATE IV (08:59)
[2022-12-03 10:05] VITALS: BP 118/77; PULSE 75; RESP 16; TEMP 36.6; O2SAT 98
[2022-12-10 08:37] VITALS: BP 121/84; PULSE 73; RESP 16; TEMP 36.6; O2SAT 98
[2022-12-10] MEDS: CUPRIC CHLORIDE IV (08:41)
[2022-12-10] MEDS: MULTIVITAMIN IV (08:41)
[2022-12-10] MEDS: CALCIUM GLUCONATE IV (08:41)
[2022-12-10] MEDS: [UNRECOGNIZED DRUG - OTHER] IV (08:41)
[2022-12-10] MEDS: cyanocobalamin 1,000 mcg/mL SDV 1000 MCG IM (09:35)
[2022-12-10 09:42] VITALS: BP 126/82; PULSE 72; RESP 16; TEMP 36.4; O2SAT 100
== END 2022-12-14 23:59 | disposition home or self-care (01) ==
PROVIDERS: PCP Family Medicine; Visit Provider Internal Medicine Medical Oncology
DX: D51.9 Vitamin B12 deficiency anemia, unspecified (principal)
CPT/HCPCS: 96365; 96372; J0612; J1642; J3420; J3490; J7050

== ENCOUNTER 2023-01-14 08:30 | Oncology outpatient (recurring) (ONCR) | payer OTHER, SELFPAY ==
[2022-12-17 09:00] VITALS: BP 108/76; PULSE 83; RESP 16; TEMP 37.2; O2SAT 99
[2022-12-17 09:32] LABS: Thyroid Stimulating Hormone 0.08 uIU/mL (0.27-4.20)
[2022-12-17] MEDS: [UNRECOGNIZED DRUG - OTHER] IV (09:32)
[2022-12-17] MEDS: CALCIUM GLUCONATE IV (09:32)
[2022-12-17] MEDS: CUPRIC CHLORIDE IV (09:32)
[2022-12-17] MEDS: MULTIVITAMIN IV (09:32)
[2022-12-17 10:35] VITALS: BP 120/82; PULSE 66; RESP 16; TEMP 36.3; O2SAT 98
[2022-12-24 08:12] VITALS: BP 117/77; PULSE 82; RESP 17; TEMP 36.4; O2SAT 98
[2022-12-24] MEDS: CUPRIC CHLORIDE IV (08:42)
[2022-12-24] MEDS: CALCIUM GLUCONATE IV (08:42)
[2022-12-24] MEDS: [UNRECOGNIZED DRUG - OTHER] IV (08:42)
[2022-12-24] MEDS: cyanocobalamin 1,000 mcg/mL SDV 1000 MCG IM (08:42)
[2022-12-24] MEDS: MULTIVITAMIN IV (08:42)
[2022-12-24 09:39] VITALS: BP 129/75; PULSE 64; RESP 16; TEMP 36.1; O2SAT 98
[2022-12-31 08:08] VITALS: BP 105/68; PULSE 84; RESP 18; TEMP 36.7; O2SAT 99
[2022-12-31] MEDS: CUPRIC CHLORIDE IV (08:57)
[2022-12-31] MEDS: [UNRECOGNIZED DRUG - OTHER] IV (08:57)
[2022-12-31] MEDS: MULTIVITAMIN IV (08:57)
[2022-12-31] MEDS: CALCIUM GLUCONATE IV (08:57)
[2022-12-31 09:54] VITALS: BP 125/81; PULSE 73; RESP 18; TEMP 36.6; O2SAT 99
[2023-01-07 08:30] VITALS: BP 118/76; PULSE 81; RESP 18; TEMP 37; O2SAT 97
[2023-01-07] MEDS: [UNRECOGNIZED DRUG - OTHER] IV (08:52)
[2023-01-07] MEDS: MULTIVITAMIN IV (08:52)
[2023-01-07] MEDS: cyanocobalamin 1,000 mcg/mL SDV 1000 MCG IM (08:52)
[2023-01-07] MEDS: CALCIUM GLUCONATE IV (08:52)
[2023-01-07] MEDS: CUPRIC CHLORIDE IV (08:52)
[2023-01-07 09:23] LABS: Free T4 Free Thyroxine 1.16 ng/dL (0.82-1.77); T3 Free 1.7 PG/ML (2.0-4.4); Thyroid Stimulating Hormone 0.13 uIU/mL (0.27-4.20)
[2023-01-07 09:58] VITALS: BP 137/84; PULSE 64; RESP 16; TEMP 36.8; O2SAT 98
[2023-01-14 08:17] VITALS: BP 120/81; PULSE 80; RESP 18; TEMP 36.9; O2SAT 100
[2023-01-14] MEDS: CALCIUM GLUCONATE IV (08:45)
[2023-01-14] MEDS: CUPRIC CHLORIDE IV (08:45)
[2023-01-14] MEDS: MULTIVITAMIN IV (08:45)
[2023-01-14] MEDS: [UNRECOGNIZED DRUG - OTHER] IV (08:45)
[2023-01-14 09:34] VITALS: BP 137/79; PULSE 77; RESP 18; TEMP 36.7; O2SAT 96
== END 2023-01-14 23:59 | disposition home or self-care (01) ==
PROVIDERS: Nurse Practitioner Family; PCP Family Medicine; Visit Provider Internal Medicine Medical Oncology
DX: D51.9 Vitamin B12 deficiency anemia, unspecified (principal)
CPT/HCPCS: 84439; 84443; 84481; 96365; J0612; J1642; J3420; J3490; J7050

== ENCOUNTER 2023-02-11 08:30 | Oncology outpatient (recurring) (ONCR) | payer OTHER, SELFPAY ==
[2023-01-22] MEDS: CALCIUM GLUCONATE IV (08:50)
[2023-01-22] MEDS: MULTIVITAMIN IV (08:50)
[2023-01-22] MEDS: [UNRECOGNIZED DRUG - OTHER] IV (08:50)
[2023-01-22] MEDS: CUPRIC CHLORIDE IV (08:50)
[2023-01-22] MEDS: cyanocobalamin 1,000 mcg/mL SDV 1000 MCG IM (09:10)
[2023-01-22 09:45] VITALS: BP 123/78; PULSE 68; RESP 16; TEMP 36.9; O2SAT 97
[2023-01-28] MEDS: CUPRIC CHLORIDE IV (08:42)
[2023-01-28] MEDS: MULTIVITAMIN IV (08:42)
[2023-01-28] MEDS: CALCIUM GLUCONATE IV (08:42)
[2023-01-28] MEDS: [UNRECOGNIZED DRUG - OTHER] IV (08:42)
[2023-01-28 09:45] VITALS: BP 124/82; PULSE 73; RESP 16; TEMP 37; O2SAT 99
[2023-02-04 08:33] VITALS: BP 117/73; PULSE 74; RESP 18; TEMP 36.7; O2SAT 99
[2023-02-04] MEDS: cyanocobalamin 1,000 mcg/mL SDV 1000 MCG IM (08:50)
[2023-02-04] MEDS: MULTIVITAMIN IV (08:53)
[2023-02-04] MEDS: CALCIUM GLUCONATE IV (08:53)
[2023-02-04] MEDS: [UNRECOGNIZED DRUG - OTHER] IV (08:53)
[2023-02-04] MEDS: CUPRIC CHLORIDE IV (08:53)
[2023-02-04 09:42] VITALS: BP 116/77; PULSE 65; RESP 18; TEMP 36.7; O2SAT 98
[2023-02-11 08:11] VITALS: BP 125/83; PULSE 84; RESP 18; TEMP 36.9; O2SAT 99
[2023-02-11] MEDS: MULTIVITAMIN IV (08:41)
[2023-02-11] MEDS: [UNRECOGNIZED DRUG - OTHER] IV (08:41)
[2023-02-11] MEDS: CALCIUM GLUCONATE IV (08:41)
[2023-02-11] MEDS: CUPRIC CHLORIDE IV (08:41)
== END 2023-02-14 23:59 | disposition home or self-care (01) ==
PROVIDERS: PCP Family Medicine; Visit Provider Internal Medicine Medical Oncology
DX: D51.8 Other vitamin B12 deficiency anemias (principal)
CPT/HCPCS: 96365; 96372; J0612; J1642; J3420; J3490; J7050

== ENCOUNTER 2023-03-11 08:30 | Oncology outpatient (recurring) (ONCR) | payer OTHER, SELFPAY ==
[2023-02-20 14:52] LABS: Basophils % 0.9 %; Eosinophils # 0.2 10^3/uL (0.0-0.8); Eosinophils % 3.7 %; Hematocrit 34.9 % (36-47); Lymphocytes # 2.3 10^3/uL (0.8-4.8); Lymphocytes % 50.7 %; Mean Corpuscular HGB Conc 31.8 g/dL (30-55); Mean Corpuscular Hemoglobin 31.4 pg (27-33); Mean Corpuscular Volume 98.9 fl (85-98); Mean Platelet Volume 9.3 fL (7.4-10.4); Monocytes # 0.4 10^3/uL (0.2-0.9); Monocytes % 7.6 %; Neutrophils # 1.69 10^3/uL (1.8-7.7); Neutrophils % 36.9 %; Nucleated Red Blood Cells % 0 %; Platelet Count 185 10^3/cmm (157-399); Red Blood Count 3.53 10^6/uL (3.85-5.65); White Blood Count 4.58 10^3/uL (3.29-11.43)
[2023-02-20] MEDS: MULTIVITAMIN IV (15:15)
[2023-02-20] MEDS: CUPRIC CHLORIDE IV (15:15)
[2023-02-20] MEDS: [UNRECOGNIZED DRUG - OTHER] IV (15:15)
[2023-02-20] MEDS: CALCIUM GLUCONATE IV (15:15)
[2023-02-20 15:22] LABS: Alanine Aminotransferase 29 U/L (0-33); Albumin Level 4.4 g/dL (3.5-5.2); Alkaline Phosphatase 91 U/L (35-105); Aspartate Amino Transferase 31 U/L (0-32); Blood Urea Nitrogen 17 mg/dL (6-20); Calcium 8.6 mg/dL (8.5-10.5); Carbon Dioxide 21 mmol/L (22-29); Chloride 106 mmol/L (98-107); Free T4 Free Thyroxine 1.07 ng/dL (0.82-1.77); Globulin 1.8 g/dL (1.3-4.6); Glomerular Filtration Rate 65.8 mL/min (90-130); Glucose 79 mg/dL (65-115); Osmolality Calculated 284 mOsm/kg (285-295); Sodium 137 mmol/L (136-145); T3 Free 1.5 PG/ML (2.0-4.4); Thyroid Stimulating Hormone 1.71 uIU/mL (0.27-4.20); Total Bilirubin 0.3 mg/dL (0.15-1.2); Total Protein 6.2 g/dL (6.6-8.7)
[2023-02-20 15:42] LABS: Ferritin 206 ng/mL (15-150); Iron 103 ug/dL (37-145); Percent Saturation 25.9 % (20-50); Total Iron Binding Capacity 397 mcg/dl; Unsaturated Iron Binding 294 ug/dL (112-347)
[2023-02-20 15:59] LABS: 25 Hydroxy Vitamin D 8 ng/mL (30-100)
[2023-02-20 16:18] VITALS: BP 131/85; PULSE 89; RESP 16; TEMP 36.1; O2SAT 96
[2023-02-25 08:46] VITALS: BP 103/72; PULSE 94; RESP 18; TEMP 36.8; O2SAT 99
[2023-02-25] MEDS: CALCIUM GLUCONATE IV (08:51)
[2023-02-25] MEDS: CUPRIC CHLORIDE IV (08:51)
[2023-02-25] MEDS: [UNRECOGNIZED DRUG - OTHER] IV (08:51)
[2023-02-25] MEDS: MULTIVITAMIN IV (08:51)
[2023-02-25] MEDS: cyanocobalamin 1,000 mcg/mL SDV 1000 MCG IM (09:04)
[2023-02-25 09:45] VITALS: BP 120/86; PULSE 90; RESP 16; TEMP 37.7; O2SAT 98
[2023-02-26 09:40] LABS: Copper Level 78 mcg/dL (70-175)
[2023-03-04 08:32] VITALS: BP 132/69; PULSE 78; RESP 18; TEMP 36.5; O2SAT 99
[2023-03-04] MEDS: CALCIUM GLUCONATE IV (08:51)
[2023-03-04] MEDS: [UNRECOGNIZED DRUG - OTHER] IV (08:51)
[2023-03-04] MEDS: MULTIVITAMIN IV (08:51)
[2023-03-04] MEDS: CUPRIC CHLORIDE IV (08:51)
[2023-03-04 09:39] VITALS: BP 126/82; PULSE 70; RESP 18; TEMP 36.6; O2SAT 98
[2023-03-11 09:05] VITALS: BP 104/69; PULSE 77; RESP 18; TEMP 36.8; O2SAT 98
[2023-03-11] MEDS: CUPRIC CHLORIDE IV (09:10)
[2023-03-11] MEDS: CALCIUM GLUCONATE IV (09:10)
[2023-03-11] MEDS: [UNRECOGNIZED DRUG - OTHER] IV (09:10)
[2023-03-11] MEDS: MULTIVITAMIN IV (09:10)
[2023-03-11] MEDS: cyanocobalamin 1,000 mcg/mL SDV 1000 MCG IM (09:16)
[2023-03-11 10:02] VITALS: BP 108/67; PULSE 79; RESP 17; TEMP 36.9; O2SAT 97
== END 2023-03-16 23:59 | disposition home or self-care (01) ==
PROVIDERS: PCP Family Medicine; Visit Provider Internal Medicine Medical Oncology
DX: D51.8 Other vitamin B12 deficiency anemias (principal)
CPT/HCPCS: 80053; 82306; 82525; 82728; 83540; 83550; 84439; 84443; 84481; 85025; 96365; J0612; J1642; J3420; J3490; J7050

== ENCOUNTER 2023-04-15 08:22 | Oncology outpatient (recurring) (ONCR) | payer OTHER, SELFPAY ==
[2023-03-18 08:30] VITALS: BP 109/78; PULSE 71; RESP 16; TEMP 36; O2SAT 98
[2023-03-18] MEDS: CUPRIC CHLORIDE IV (08:58)
[2023-03-18] MEDS: MULTIVITAMIN IV (08:58)
[2023-03-18] MEDS: CALCIUM GLUCONATE IV (08:58)
[2023-03-18] MEDS: [UNRECOGNIZED DRUG - OTHER] IV (08:58)
[2023-03-18 09:48] VITALS: BP 101/69; PULSE 64; RESP 18; TEMP 36.3
[2023-03-28 08:50] VITALS: BP 137/91; PULSE 77; RESP 17; TEMP 36.4; O2SAT 95; BMI 22.6
[2023-03-28] MEDS: MULTIVITAMIN IV (11:42)
[2023-03-28] MEDS: CALCIUM GLUCONATE IV (11:42)
[2023-03-28] MEDS: [UNRECOGNIZED DRUG - OTHER] IV (11:42)
[2023-03-28] MEDS: CUPRIC CHLORIDE IV (11:42)
[2023-03-28] MEDS: cyanocobalamin 1,000 mcg/mL SDV 1000 MCG IM (11:43)
[2023-03-28 12:45] VITALS: BP 138/87; PULSE 78; TEMP 37.2; O2SAT 99
[2023-04-01] MEDS: [UNRECOGNIZED DRUG - OTHER] IV (08:33)
[2023-04-01] MEDS: CALCIUM GLUCONATE IV (08:33)
[2023-04-01] MEDS: CUPRIC CHLORIDE IV (08:33)
[2023-04-01] MEDS: MULTIVITAMIN IV (08:33)
[2023-04-08 08:43] VITALS: BP 107/73; PULSE 66; RESP 16; O2SAT 99
[2023-04-08] MEDS: CUPRIC CHLORIDE IV (09:26)
[2023-04-08] MEDS: CALCIUM GLUCONATE IV (09:26)
[2023-04-08] MEDS: [UNRECOGNIZED DRUG - OTHER] IV (09:26)
[2023-04-08] MEDS: MULTIVITAMIN IV (09:26)
[2023-04-08] MEDS: cyanocobalamin 1,000 mcg/mL SDV 1000 MCG IM (10:18)
[2023-04-08 10:23] VITALS: BP 112/75; PULSE 67; RESP 18; TEMP 36.4; O2SAT 66
[2023-04-15 08:38] VITALS: BP 109/70; PULSE 77; RESP 16; TEMP 36.6; O2SAT 98; BMI 22.4
[2023-04-15] MEDS: MULTIVITAMIN IV (08:48)
[2023-04-15] MEDS: [UNRECOGNIZED DRUG - OTHER] IV (08:48)
[2023-04-15] MEDS: CUPRIC CHLORIDE IV (08:48)
[2023-04-15] MEDS: CALCIUM GLUCONATE IV (08:48)
[2023-04-15 09:37] VITALS: BP 117/82; PULSE 66; RESP 18; TEMP 36.8; O2SAT 98
== END 2023-04-16 23:59 | disposition home or self-care (01) ==
PROVIDERS: PCP Family Medicine; Visit Provider Internal Medicine Medical Oncology
DX: D51.8 Other vitamin B12 deficiency anemias (principal)
CPT/HCPCS: 96365; 96372; J0612; J1642; J3420; J3490; J7050

== ENCOUNTER 2023-05-13 08:16 | Oncology outpatient (recurring) (ONCR) | payer OTHER, SELFPAY ==
[2023-04-22] MEDS: CALCIUM GLUCONATE IV (08:50)
[2023-04-22] MEDS: MULTIVITAMIN IV (08:50)
[2023-04-22] MEDS: [UNRECOGNIZED DRUG - OTHER] IV (08:50)
[2023-04-22] MEDS: CUPRIC CHLORIDE IV (08:50)
[2023-04-22 08:56] VITALS: BP 126/78; PULSE 75; RESP 16; TEMP 36.7; O2SAT 99
[2023-04-22 09:16] LABS: Free T4 Free Thyroxine 0.78 ng/dL (0.82-1.77); T3 Free 1.4 PG/ML (2.0-4.4); Thyroid Stimulating Hormone 2.05 uIU/mL (0.27-4.20)
[2023-04-22] MEDS: cyanocobalamin 1,000 mcg/mL SDV 1000 MCG IM (09:59)
[2023-04-29 08:41] VITALS: BP 111/77; PULSE 77; RESP 16; TEMP 36.7; O2SAT 99
[2023-04-29] MEDS: [UNRECOGNIZED DRUG - OTHER] IV (08:47)
[2023-04-29] MEDS: CALCIUM GLUCONATE IV (08:47)
[2023-04-29] MEDS: MULTIVITAMIN IV (08:47)
[2023-04-29] MEDS: CUPRIC CHLORIDE IV (08:47)
[2023-04-29 09:58] VITALS: BP 109/76; PULSE 76; RESP 16; TEMP 36.4; O2SAT 99
[2023-05-06 08:34] VITALS: BP 119/84; PULSE 75; RESP 18; TEMP 36.6; O2SAT 97
[2023-05-06] MEDS: MULTIVITAMIN IV (09:03)
[2023-05-06] MEDS: CALCIUM GLUCONATE IV (09:03)
[2023-05-06] MEDS: [UNRECOGNIZED DRUG - OTHER] IV (09:03)
[2023-05-06] MEDS: CUPRIC CHLORIDE IV (09:03)
[2023-05-06] MEDS: cyanocobalamin 1,000 mcg/mL SDV 1000 MCG IM (09:58)
[2023-05-06 10:03] VITALS: BP 118/81; PULSE 67; RESP 16; TEMP 36.9; O2SAT 99
[2023-05-13 08:19] VITALS: BP 125/82; PULSE 81; RESP 18; TEMP 36.5; O2SAT 97
[2023-05-13] MEDS: [UNRECOGNIZED DRUG - OTHER] IV (08:35)
[2023-05-13] MEDS: CALCIUM GLUCONATE IV (08:35)
[2023-05-13] MEDS: MULTIVITAMIN IV (08:35)
[2023-05-13] MEDS: CUPRIC CHLORIDE IV (08:35)
[2023-05-13 09:30] VITALS: BP 120/86; PULSE 69; RESP 16; TEMP 36.6; O2SAT 99
== END 2023-05-16 23:59 | disposition home or self-care (01) ==
PROVIDERS: Nurse Practitioner Family; PCP Family Medicine; Visit Provider Internal Medicine Medical Oncology
DX: D51.8 Other vitamin B12 deficiency anemias (principal)
CPT/HCPCS: 84439; 84443; 84481; 96365; 96372; J0612; J1642; J3420; J3490; J7050

== ENCOUNTER 2023-06-11 08:00 | Oncology outpatient (recurring) (ONCR) | payer OTHER, SELFPAY ==
[2023-05-20 08:20] VITALS: BP 131/83; PULSE 91; RESP 18; TEMP 37.1; O2SAT 98
[2023-05-20] MEDS: CALCIUM GLUCONATE IV (09:04)
[2023-05-20] MEDS: MULTIVITAMIN IV (09:04)
[2023-05-20] MEDS: CUPRIC CHLORIDE IV (09:04)
[2023-05-20] MEDS: [UNRECOGNIZED DRUG - OTHER] IV (09:04)
[2023-05-20] MEDS: cyanocobalamin 1,000 mcg/mL SDV 1000 MCG IM (09:05)
[2023-05-20 10:00] VITALS: BP 123/86; PULSE 76; RESP 16; TEMP 36.7; O2SAT 96
[2023-05-27 08:25] VITALS: BP 125/70; PULSE 78; RESP 18; TEMP 36.8; O2SAT 98
[2023-05-27] MEDS: MULTIVITAMIN IV (08:40)
[2023-05-27] MEDS: CUPRIC CHLORIDE IV (08:40)
[2023-05-27] MEDS: CALCIUM GLUCONATE IV (08:40)
[2023-05-27] MEDS: [UNRECOGNIZED DRUG - OTHER] IV (08:40)
[2023-05-27 09:30] VITALS: BP 121/73; PULSE 66; RESP 16; TEMP 36.9; O2SAT 98
[2023-06-03 08:17] VITALS: BP 106/73; PULSE 77; RESP 16; TEMP 36.7; O2SAT 98
[2023-06-03] MEDS: cyanocobalamin 1,000 mcg/mL SDV 1000 MCG IM (08:32)
[2023-06-03] MEDS: CALCIUM GLUCONATE IV (08:41)
[2023-06-03] MEDS: CUPRIC CHLORIDE IV (08:41)
[2023-06-03] MEDS: MULTIVITAMIN IV (08:41)
[2023-06-03] MEDS: [UNRECOGNIZED DRUG - OTHER] IV (08:41)
== END 2023-06-16 23:59 | disposition home or self-care (01) ==
PROVIDERS: PCP Family Medicine; Visit Provider Internal Medicine Medical Oncology
DX: Z53.9 Procedure and treatment not carried out, unspecified reason (principal)
CPT/HCPCS: 96365; 96372; J0612; J1642; J3420; J3490; J7050

== ENCOUNTER 2023-06-24 08:30 | Oncology outpatient (recurring) (ONCR) | payer OTHER, SELFPAY ==
[2023-06-18] MEDS: MULTIVITAMIN IV (09:33)
[2023-06-18] MEDS: [UNRECOGNIZED DRUG - OTHER] IV (09:33)
[2023-06-18] MEDS: CUPRIC CHLORIDE IV (09:33)
[2023-06-18] MEDS: CALCIUM GLUCONATE IV (09:33)
[2023-06-18] MEDS: cyanocobalamin 1,000 mcg/mL SDV 1000 MCG IM (09:49)
[2023-06-18 10:50] VITALS: BP 120/82; PULSE 69; RESP 18; TEMP 36.6; O2SAT 98
[2023-06-24 08:48] VITALS: BP 113/74; PULSE 74; RESP 16; TEMP 36.6; O2SAT 99
[2023-06-24] MEDS: MULTIVITAMIN IV (08:52)
[2023-06-24] MEDS: CALCIUM GLUCONATE IV (08:52)
[2023-06-24] MEDS: [UNRECOGNIZED DRUG - OTHER] IV (08:52)
[2023-06-24] MEDS: CUPRIC CHLORIDE IV (08:52)
[2023-06-24 09:41] VITALS: BP 121/78; PULSE 67; RESP 18; TEMP 36.9; O2SAT 97
== END 2023-07-17 23:59 | disposition home or self-care (01) ==
PROVIDERS: PCP Family Medicine; Visit Provider Internal Medicine Medical Oncology
DX: Z53.9 Procedure and treatment not carried out, unspecified reason (principal); D51.8 Other vitamin B12 deficiency anemias
CPT/HCPCS: 96365; 96402; J0612; J1642; J3420; J3490; J7050

== ENCOUNTER 2023-06-27 10:19 | Outpatient (CLI) | payer OTHER, SELFPAY ==
--- NOTE | 2023-06-27 10:27 | XR_ITS ---
WS: [id number] XR knee LT 3V* [id number] REASON FOR EXAM: knee pain FINDINGS: No fracture or focal bone lesion. Joint spaces of the left knee are intact and relatively well preserved. No soft tissue abnormality. IMPRESSION: No significant abnormality.
== END 2023-06-27 10:20 | disposition home or self-care (01) ==
PROVIDERS: PCP Family Medicine; Visit Provider Family Medicine
DX: M25.562 Pain in left knee (principal)
CPT/HCPCS: 73562

== ENCOUNTER 2023-07-11 07:48 | Outpatient (CLI) | payer OTHER, SELFPAY ==
--- NOTE | 2023-07-11 08:00 | MR_ITS ---
WS: [id number] MRI LEFT KNEE HISTORY: left knee pain/ meniscal tear on exam COMPARISON: 06/27/2023 Anterior cruciate ligament: Intact. Posterior cruciate ligament: Intact. Medial collateral ligament: MCL is intact. There is a small amount of edema adjacent to the MCL. Posterior lateral corner structures: Intact. Medial menisci: Intact. Normal signal, size and shape. Lateral meniscus: Intact. Normal signal, size and shape. Extensor mechanism: Distal quadriceps tendon and patellar tendons are intact. Fluid and soft tissue: Small suprapatellar joint effusion. Small amount of soft tissue edema surround ing the knee. No Christopher's cyst. Osseous and articular structures: Patellofemoral compartment: Mild narrowing of patellofemoral joint space. Very minimal thinning of th e cartilage at the patellar eminence. No fractures or marrow edema. There is very mild increased sign al within the lateral patellar retinaculum suggesting a mild sprain. Infrapatellar fat pad edema. Medial compartment: Mild narrowing the medial compartment. There is mild diffuse thinning and fissuri ng of the cartilage. No fractures or marrow edema. Lateral compartment: Mild narrowing of the lateral compartment with mild thinning and fissuring of th e cartilage. No fractures or marrow edema. 4 mm nodule of intermediate signal just anterior to the PCL. This is seen on only limited sequences b ut could be a small loose body. IMPRESSION: 1. Small suprapatellar joint effusion. 2. Mild sprain lateral patellar retinaculum. 3. No meniscal tears are identified. No ACL tear. 4. Edema within the infrapatellar fat pad. 5. Mild tricompartment joint space narrowing with thinning and fissuring of the cartilage. No marrow edema. 6. Possible 4 mm loose body in the knee joint just anterior to the PCL seen on limited sequences.
== END 2023-07-11 07:49 | disposition home or self-care (01) ==
PROVIDERS: PCP Family Medicine; Visit Provider Family Medicine
DX: S83.207A Unspecified tear of unspecified meniscus, current injury, left knee, initial encounter (principal); S83.8X2A Sprain of other specified parts of left knee, initial encounter; X58.XXXA Exposure to other specified factors, initial encounter; M25.462 Effusion, left knee
CPT/HCPCS: 73721

== ENCOUNTER 2023-07-15 08:37 | Oncology outpatient (recurring) (ONCR) | payer OTHER, SELFPAY ==
[2023-07-15] MEDS: [UNRECOGNIZED DRUG - OTHER] IV (08:57)
[2023-07-15] MEDS: MULTIVITAMIN IV (08:57)
[2023-07-15] MEDS: CALCIUM GLUCONATE IV (08:57)
[2023-07-15] MEDS: CUPRIC CHLORIDE IV (08:57)
[2023-07-15] MEDS: cyanocobalamin 1,000 mcg/mL SDV 1000 MCG IM (09:54)
[2023-07-15 10:00] VITALS: BP 106/69; PULSE 72; RESP 16; TEMP 36.7; O2SAT 96
== END 2023-07-17 23:59 | disposition home or self-care (01) ==
PROVIDERS: PCP Family Medicine; Visit Provider Family Medicine
DX: D51.9 Vitamin B12 deficiency anemia, unspecified (principal)
CPT/HCPCS: 96365; 96372; J0612; J1642; J3420; J3490; J7050

== ENCOUNTER → 2023-07-30 08:09 | Outpatient (BNVA) | payer OTHER, SELFPAY | PROVIDERS: PCP Family Medicine; Referring Provider Family Medicine; Visit Provider Physician Assistant | DX: M25.462 Effusion, left knee; M23.42 Loose body in knee, left knee; S83.92XA Sprain of unspecified site of left knee, initial encounter; X58.XXXA Exposure to other specified factors, initial encounter | CPT/HCPCS: 73560; 73565 ==

== ENCOUNTER 2023-08-12 08:06 | Oncology outpatient (recurring) (ONCR) | payer OTHER, SELFPAY ==
[2023-07-22] MEDS: [UNRECOGNIZED DRUG - OTHER] IV (09:06)
[2023-07-22] MEDS: MULTIVITAMIN IV (09:06)
[2023-07-22] MEDS: CALCIUM GLUCONATE IV (09:06)
[2023-07-22] MEDS: CUPRIC CHLORIDE IV (09:06)
[2023-07-22 10:10] VITALS: BP 106/65; PULSE 81; RESP 16
[2023-07-29 08:13] VITALS: BP 103/74; PULSE 86; RESP 16; TEMP 36.1; O2SAT 97
[2023-07-29] MEDS: [UNRECOGNIZED DRUG - OTHER] IV (08:39)
[2023-07-29] MEDS: CUPRIC CHLORIDE IV (08:39)
[2023-07-29] MEDS: CALCIUM GLUCONATE IV (08:39)
[2023-07-29] MEDS: MULTIVITAMIN IV (08:39)
[2023-07-29] MEDS: cyanocobalamin 1,000 mcg/mL SDV 1000 MCG IM (09:30)
[2023-08-05 08:20] VITALS: BP 131/83; PULSE 86; RESP 18; TEMP 36.3; O2SAT 98
[2023-08-05] MEDS: CALCIUM GLUCONATE IV (08:38)
[2023-08-05] MEDS: MULTIVITAMIN IV (08:38)
[2023-08-05] MEDS: [UNRECOGNIZED DRUG - OTHER] IV (08:38)
[2023-08-05] MEDS: CUPRIC CHLORIDE IV (08:38)
[2023-08-05 09:25] VITALS: BP 121/79; PULSE 79; RESP 18; TEMP 36.7; O2SAT 97
[2023-08-12 08:14] VITALS: BP 116/75; PULSE 81; RESP 16; TEMP 36.6; O2SAT 99
[2023-08-12] MEDS: cyanocobalamin 1,000 mcg/mL SDV 1000 MCG IM (08:34)
[2023-08-12] MEDS: MULTIVITAMIN IV (08:44)
[2023-08-12] MEDS: CUPRIC CHLORIDE IV (08:44)
[2023-08-12] MEDS: [UNRECOGNIZED DRUG - OTHER] IV (08:44)
[2023-08-12] MEDS: CALCIUM GLUCONATE IV (08:44)
== END 2023-08-15 23:59 | disposition home or self-care (01) ==
PROVIDERS: PCP Family Medicine; Visit Provider Family Medicine
DX: E53.8 Deficiency of other specified B group vitamins (principal); Z53.9 Procedure and treatment not carried out, unspecified reason
CPT/HCPCS: 96365; 96372; J0612; J1642; J3420; J3490; J7050

== ENCOUNTER 2023-09-09 08:10 | Oncology outpatient (recurring) (ONCR) | payer OTHER, SELFPAY ==
[2023-08-19 08:26] VITALS: BP 131/84; PULSE 83; RESP 18; TEMP 36.6; O2SAT 99
[2023-08-19] MEDS: [UNRECOGNIZED DRUG - OTHER] IV (08:46)
[2023-08-19] MEDS: MULTIVITAMIN IV (08:46)
[2023-08-19] MEDS: CALCIUM GLUCONATE IV (08:46)
[2023-08-19] MEDS: CUPRIC CHLORIDE IV (08:46)
[2023-08-26 08:34] VITALS: BP 112/76; PULSE 69; RESP 18; TEMP 37.2; O2SAT 96
[2023-08-26] MEDS: MULTIVITAMIN IV (08:42)
[2023-08-26] MEDS: [UNRECOGNIZED DRUG - OTHER] IV (08:42)
[2023-08-26] MEDS: CALCIUM GLUCONATE IV (08:42)
[2023-08-26] MEDS: CUPRIC CHLORIDE IV (08:42)
[2023-08-26] MEDS: cyanocobalamin 1,000 mcg/mL SDV 1000 MCG IM (08:47)
[2023-08-26 09:11] LABS: Basophils % 1.2 %; Eosinophils # 0.1 10^3/uL (0.0-0.8); Eosinophils % 3.5 %; Hematocrit 32.6 % (36-47); Lymphocytes # 1.3 10^3/uL (0.8-4.8); Lymphocytes % 37.1 %; Mean Corpuscular HGB Conc 31.6 g/dL (30-55); Mean Corpuscular Hemoglobin 32.3 pg (27-33); Mean Corpuscular Volume 102.2 fl (85-98); Mean Platelet Volume 9.4 fL (7.4-10.4); Monocytes # 0.4 10^3/uL (0.2-0.9); Monocytes % 10.5 %; Neutrophils # 1.62 10^3/uL (1.8-7.7); Neutrophils % 47.4 %; Nucleated Red Blood Cells % 0 %; Platelet Count 188 10^3/cmm (157-399); Red Blood Count 3.19 10^6/uL (3.85-5.65); Red Cell Distribution Width 13.2 % (12.1-15.1); White Blood Count 3.42 10^3/uL (3.29-11.43)
[2023-08-26 09:30] VITALS: BP 101/69; PULSE 75; RESP 16; TEMP 36.9; O2SAT 99
[2023-08-26 09:52] LABS: Alanine Aminotransferase 30 U/L (0-33); Albumin Level 3.8 g/dL (3.5-5.2); Alkaline Phosphatase 96 U/L (35-105); Anion Gap 13.1 (5-19); Aspartate Amino Transferase 33 U/L (0-32); Blood Urea Nitrogen 11 mg/dL (6-20); Calcium 8.2 mg/dL (8.5-10.5); Carbon Dioxide 22 mmol/L (22-29); Chloride 109 mmol/L (98-107); Globulin 2.2 g/dL (1.3-4.6); Glomerular Filtration Rate 75.3 mL/min (90-130); Glucose 82 mg/dL (65-115); Osmolality Calculated 288 mOsm/kg (285-295); Potassium 4.1 mmol/L (3.5-5.1); Sodium 140 mmol/L (136-145); Thyroid Stimulating Hormone 0.54 uIU/mL (0.27-4.20); Total Bilirubin 0.2 mg/dL (0.15-1.2)
[2023-08-26 11:00] LABS: Ferritin 134 ng/mL (15-150); Iron 72 ug/dL (37-145); Percent Saturation 19.9 % (20-50); Total Iron Binding Capacity 361 mcg/dl; Unsaturated Iron Binding 289 ug/dL (112-347)
[2023-08-26 11:15] LABS: 25 Hydroxy Vitamin D 6 ng/mL (30-100)
[2023-08-29 00:55] LABS: Copper Level 108 mcg/dL (70-175)
[2023-09-09 08:44] VITALS: BP 107/66; PULSE 80; RESP 16; O2SAT 97
[2023-09-09] MEDS: CUPRIC CHLORIDE IV (08:45)
[2023-09-09] MEDS: MULTIVITAMIN IV (08:45)
[2023-09-09] MEDS: CALCIUM GLUCONATE IV (08:45)
[2023-09-09] MEDS: [UNRECOGNIZED DRUG - OTHER] IV (08:45)
[2023-09-09] MEDS: cyanocobalamin 1,000 mcg/mL SDV 1000 MCG IM (09:18)
== END 2023-09-15 23:59 | disposition home or self-care (01) ==
PROVIDERS: Nurse Practitioner Family; PCP Family Medicine; Visit Provider Family Medicine
DX: E53.8 Deficiency of other specified B group vitamins; Z53.9 Procedure and treatment not carried out, unspecified reason
CPT/HCPCS: 80053; 82306; 82525; 82728; 83540; 83550; 84443; 85025; 96365; 96372; J0612; J1642; J3420; J3490; J7050

== ENCOUNTER 2023-10-14 08:00 | Oncology outpatient (recurring) (ONCR) | payer OTHER, SELFPAY ==
[2023-09-16 08:56] VITALS: BP 120/86; PULSE 71; RESP 16; TEMP 36.6; O2SAT 98
[2023-09-16] MEDS: CALCIUM GLUCONATE IV (09:08)
[2023-09-16] MEDS: [UNRECOGNIZED DRUG - OTHER] IV (09:08)
[2023-09-16] MEDS: MULTIVITAMIN IV (09:08)
[2023-09-16] MEDS: CUPRIC CHLORIDE IV (09:08)
[2023-09-16 10:20] VITALS: BP 127/86; PULSE 84; RESP 16; TEMP 36.4; O2SAT 99
[2023-09-23 08:40] VITALS: BP 104/68; PULSE 83; RESP 16; TEMP 36.8; O2SAT 96
[2023-09-23] MEDS: CALCIUM GLUCONATE IV (09:29)
[2023-09-23] MEDS: [UNRECOGNIZED DRUG - OTHER] IV (09:29)
[2023-09-23] MEDS: CUPRIC CHLORIDE IV (09:29)
[2023-09-23] MEDS: MULTIVITAMIN IV (09:29)
[2023-09-23] MEDS: cyanocobalamin 1,000 mcg/mL SDV 1000 MCG IM (09:51)
[2023-09-23 10:18] VITALS: BP 114/71; PULSE 75; RESP 16; TEMP 36.8; O2SAT 97
[2023-09-30 08:42] VITALS: BP 113/71; PULSE 81; RESP 16; TEMP 36; O2SAT 99
[2023-09-30] MEDS: CUPRIC CHLORIDE IV (08:53)
[2023-09-30] MEDS: CALCIUM GLUCONATE IV (08:53)
[2023-09-30] MEDS: MULTIVITAMIN IV (08:53)
[2023-09-30] MEDS: [UNRECOGNIZED DRUG - OTHER] IV (08:53)
[2023-10-07] MEDS: CALCIUM GLUCONATE IV (08:36)
[2023-10-07] MEDS: [UNRECOGNIZED DRUG - OTHER] IV (08:36)
[2023-10-07] MEDS: CUPRIC CHLORIDE IV (08:36)
[2023-10-07] MEDS: MULTIVITAMIN IV (08:36)
[2023-10-07 09:30] VITALS: BP 116/75; PULSE 73; RESP 16; O2SAT 95
[2023-10-14 08:07] VITALS: BP 110/75; PULSE 88; RESP 16; TEMP 37.2; O2SAT 98
[2023-10-14] MEDS: cyanocobalamin 1,000 mcg/mL SDV 1000 MCG IM (08:11)
[2023-10-14] MEDS: MULTIVITAMIN IV (08:31)
[2023-10-14] MEDS: CUPRIC CHLORIDE IV (08:31)
[2023-10-14] MEDS: [UNRECOGNIZED DRUG - OTHER] IV (08:31)
[2023-10-14] MEDS: CALCIUM GLUCONATE IV (08:31)
== END 2023-10-15 23:59 | disposition home or self-care (01) ==
PROVIDERS: PCP Family Medicine; Visit Provider Family Medicine
DX: D51.9 Vitamin B12 deficiency anemia, unspecified (principal); Z53.9 Procedure and treatment not carried out, unspecified reason
CPT/HCPCS: 96365; 96372; J0612; J3420; J3490; J7050

== ENCOUNTER 2023-11-12 08:04 | Oncology outpatient (recurring) (ONCR) | payer OTHER, SELFPAY ==
[2023-10-21] MEDS: CUPRIC CHLORIDE IV (08:44)
[2023-10-21] MEDS: [UNRECOGNIZED DRUG - OTHER] IV (08:44)
[2023-10-21] MEDS: MULTIVITAMIN IV (08:44)
[2023-10-21] MEDS: CALCIUM GLUCONATE IV (08:44)
[2023-10-21 09:35] VITALS: BP 119/71; PULSE 74; RESP 16; TEMP 36.7; O2SAT 97
[2023-10-28 08:09] VITALS: BP 114/75; PULSE 76; RESP 18; TEMP 37.1; O2SAT 98
[2023-10-28] MEDS: cyanocobalamin 1,000 mcg/mL SDV 1000 MCG IM (08:18)
[2023-10-28] MEDS: MULTIVITAMIN IV (08:51)
[2023-10-28] MEDS: [UNRECOGNIZED DRUG - OTHER] IV (08:51)
[2023-10-28] MEDS: CALCIUM GLUCONATE IV (08:51)
[2023-10-28] MEDS: CUPRIC CHLORIDE IV (08:51)
[2023-10-28 09:41] VITALS: BP 105/66; PULSE 69; RESP 18; TEMP 36.4; O2SAT 98
[2023-11-04 08:12] VITALS: BP 104/71; PULSE 79; RESP 18; TEMP 36.4; O2SAT 97
[2023-11-04] MEDS: CUPRIC CHLORIDE IV (08:27)
[2023-11-04] MEDS: [UNRECOGNIZED DRUG - OTHER] IV (08:27)
[2023-11-04] MEDS: CALCIUM GLUCONATE IV (08:27)
[2023-11-04] MEDS: MULTIVITAMIN IV (08:27)
[2023-11-04 09:11] VITALS: BP 106/67; PULSE 77; RESP 18; TEMP 36.4; O2SAT 92
[2023-11-12 08:19] VITALS: BP 106/74; PULSE 77; RESP 18; TEMP 36.6; O2SAT 96
[2023-11-12] MEDS: CUPRIC CHLORIDE IV (08:58)
[2023-11-12] MEDS: [UNRECOGNIZED DRUG - OTHER] IV (08:58)
[2023-11-12] MEDS: cyanocobalamin 1,000 mcg/mL SDV 1000 MCG IM (08:58)
[2023-11-12] MEDS: CALCIUM GLUCONATE IV (08:58)
[2023-11-12] MEDS: MULTIVITAMIN IV (08:58)
[2023-11-12 09:47] VITALS: BP 110/71; PULSE 72; RESP 18; TEMP 36.6; O2SAT 99
== END 2023-11-15 23:59 | disposition home or self-care (01) ==
PROVIDERS: PCP Family Medicine; Visit Provider Family Medicine
DX: Z53.9 Procedure and treatment not carried out, unspecified reason (principal); E53.8 Deficiency of other specified B group vitamins
CPT/HCPCS: 96365; J0612; J3420; J3490; J7050

== ENCOUNTER 2023-12-09 08:02 | Oncology outpatient (recurring) (ONCR) | payer OTHER, SELFPAY ==
[2023-11-18] MEDS: CALCIUM GLUCONATE IV (08:41)
[2023-11-18] MEDS: MULTIVITAMIN IV (08:41)
[2023-11-18] MEDS: [UNRECOGNIZED DRUG - OTHER] IV (08:41)
[2023-11-18] MEDS: CUPRIC CHLORIDE IV (08:41)
[2023-11-18 09:30] VITALS: BP 100/66; PULSE 66; RESP 18; TEMP 36.4; O2SAT 99
[2023-11-25 08:36] VITALS: BP 111/72; PULSE 74; RESP 16; TEMP 36.9; O2SAT 96
[2023-11-25] MEDS: cyanocobalamin 1,000 mcg/mL SDV 1000 MCG IM (08:47)
[2023-11-25] MEDS: CUPRIC CHLORIDE IV (09:00)
[2023-11-25] MEDS: [UNRECOGNIZED DRUG - OTHER] IV (09:00)
[2023-11-25] MEDS: CALCIUM GLUCONATE IV (09:00)
[2023-11-25] MEDS: MULTIVITAMIN IV (09:00)
[2023-11-25 09:56] VITALS: BP 103/64; PULSE 71; RESP 18; TEMP 36.6; O2SAT 96
[2023-12-02 08:26] VITALS: BP 107/69; PULSE 77; RESP 16; TEMP 36.8; O2SAT 99
[2023-12-02] MEDS: [UNRECOGNIZED DRUG - OTHER] IV (08:37)
[2023-12-02] MEDS: MULTIVITAMIN IV (08:37)
[2023-12-02] MEDS: CALCIUM GLUCONATE IV (08:37)
[2023-12-02] MEDS: CUPRIC CHLORIDE IV (08:37)
[2023-12-02 09:39] VITALS: BP 106/62; PULSE 82; RESP 16; O2SAT 98
[2023-12-09 08:09] VITALS: BP 103/67; PULSE 70; RESP 16; TEMP 36.5; O2SAT 96
[2023-12-09] MEDS: MULTIVITAMIN IV (08:23)
[2023-12-09] MEDS: CUPRIC CHLORIDE IV (08:23)
[2023-12-09] MEDS: cyanocobalamin 1,000 mcg/mL SDV 1000 MCG IM (08:23)
[2023-12-09] MEDS: CALCIUM GLUCONATE IV (08:23)
[2023-12-09] MEDS: [UNRECOGNIZED DRUG - OTHER] IV (08:23)
[2023-12-09 09:16] VITALS: BP 116/73; PULSE 67; RESP 16; TEMP 36.1; O2SAT 98
== END 2023-12-15 23:59 | disposition home or self-care (01) ==
PROVIDERS: PCP Family Medicine; Visit Provider Family Medicine
DX: Z53.9 Procedure and treatment not carried out, unspecified reason (principal); E53.8 Deficiency of other specified B group vitamins; Z79.899 Other long term (current) drug therapy
CPT/HCPCS: 96365; 96372; J0612; J3420; J3490; J7050

== ENCOUNTER 2024-01-13 08:02 | Oncology outpatient (recurring) (ONCR) | payer OTHER, SELFPAY ==
[2023-12-23 08:17] VITALS: BP 104/70; PULSE 76; RESP 18; TEMP 36.3; O2SAT 96
[2023-12-23] MEDS: cyanocobalamin 1,000 mcg/mL SDV 1000 MCG IM (08:29)
[2023-12-23] MEDS: CALCIUM GLUCONATE IV (08:38)
[2023-12-23] MEDS: MULTIVITAMIN IV (08:38)
[2023-12-23] MEDS: CUPRIC CHLORIDE IV (08:38)
[2023-12-23] MEDS: [UNRECOGNIZED DRUG - OTHER] IV (08:38)
[2023-12-23 09:34] VITALS: BP 108/73; PULSE 67; RESP 16; TEMP 36.9; O2SAT 98
[2023-12-30 08:30] VITALS: BP 118/81; PULSE 73; RESP 16; TEMP 36.9; O2SAT 97
[2023-12-30] MEDS: [UNRECOGNIZED DRUG - OTHER] IV (09:12)
[2023-12-30] MEDS: CALCIUM GLUCONATE IV (09:12)
[2023-12-30] MEDS: MULTIVITAMIN IV (09:12)
[2023-12-30] MEDS: CUPRIC CHLORIDE IV (09:12)
[2023-12-30 10:08] VITALS: BP 123/76; PULSE 74; RESP 18; O2SAT 94
[2024-01-06 08:15] VITALS: BP 113/79; PULSE 72; RESP 16; O2SAT 98
[2024-01-06] MEDS: [UNRECOGNIZED DRUG - OTHER] IV (08:37)
[2024-01-06] MEDS: CUPRIC CHLORIDE IV (08:37)
[2024-01-06] MEDS: MULTIVITAMIN IV (08:37)
[2024-01-06] MEDS: cyanocobalamin 1,000 mcg/mL SDV 1000 MCG IM (08:37)
[2024-01-06] MEDS: CALCIUM GLUCONATE IV (08:37)
[2024-01-13 08:05] VITALS: BP 102/68; PULSE 82; RESP 16; TEMP 37.1; O2SAT 96
[2024-01-13] MEDS: MULTIVITAMIN IV (08:33)
[2024-01-13] MEDS: CALCIUM GLUCONATE IV (08:33)
[2024-01-13] MEDS: [UNRECOGNIZED DRUG - OTHER] IV (08:33)
[2024-01-13] MEDS: CUPRIC CHLORIDE IV (08:33)
[2024-01-13 09:20] VITALS: BP 108/74; PULSE 73; RESP 16; TEMP 37; O2SAT 91
== END 2024-01-15 23:59 | disposition home or self-care (01) ==
PROVIDERS: PCP Family Medicine; Visit Provider Family Medicine
DX: Z53.9 Procedure and treatment not carried out, unspecified reason (principal); D51.8 Other vitamin B12 deficiency anemias; Z79.899 Other long term (current) drug therapy
CPT/HCPCS: 96365; 96372; J0612; J3420; J3490; J7050

== ENCOUNTER 2024-02-10 08:00 | Oncology outpatient (recurring) (ONCR) | payer OTHER, SELFPAY ==
[2024-01-20 08:10] VITALS: BP 103/72; PULSE 75; RESP 16; TEMP 36.8; O2SAT 95
[2024-01-20] MEDS: [UNRECOGNIZED DRUG - OTHER] IV (08:50)
[2024-01-20] MEDS: CALCIUM GLUCONATE IV (08:50)
[2024-01-20] MEDS: CUPRIC CHLORIDE IV (08:50)
[2024-01-20] MEDS: MULTIVITAMIN IV (08:50)
[2024-01-20] MEDS: cyanocobalamin 1,000 mcg/mL SDV 1000 MCG IM (08:51)
[2024-01-20 09:40] VITALS: BP 116/77; PULSE 67; RESP 16; TEMP 37.1; O2SAT 98
[2024-01-27 08:04] VITALS: BP 117/75; PULSE 96; RESP 16; TEMP 36.7; O2SAT 98
[2024-01-27] MEDS: CALCIUM GLUCONATE IV (09:01)
[2024-01-27] MEDS: CUPRIC CHLORIDE IV (09:01)
[2024-01-27] MEDS: [UNRECOGNIZED DRUG - OTHER] IV (09:01)
[2024-01-27] MEDS: MULTIVITAMIN IV (09:01)
[2024-01-27 09:55] VITALS: BP 118/72; PULSE 76; RESP 16; TEMP 36.5; O2SAT 96
[2024-02-03 08:39] VITALS: BP 105/70; PULSE 89; RESP 16; TEMP 36.1; O2SAT 99
[2024-02-03] MEDS: CALCIUM GLUCONATE IV (09:06)
[2024-02-03] MEDS: CUPRIC CHLORIDE IV (09:06)
[2024-02-03] MEDS: [UNRECOGNIZED DRUG - OTHER] IV (09:06)
[2024-02-03] MEDS: MULTIVITAMIN IV (09:06)
[2024-02-03] MEDS: cyanocobalamin 1,000 mcg/mL SDV 1000 MCG IM (09:24)
[2024-02-03 10:05] VITALS: BP 102/65; PULSE 72; RESP 16; TEMP 36.4; O2SAT 97
[2024-02-10 08:14] VITALS: BP 113/71; PULSE 85; RESP 16; TEMP 36.6; O2SAT 96
[2024-02-10] MEDS: [UNRECOGNIZED DRUG - OTHER] IV (08:27)
[2024-02-10] MEDS: CALCIUM GLUCONATE IV (08:27)
[2024-02-10] MEDS: MULTIVITAMIN IV (08:27)
[2024-02-10] MEDS: CUPRIC CHLORIDE IV (08:27)
[2024-02-10 09:26] VITALS: BP 104/58; PULSE 16; RESP 78; TEMP 36.3; O2SAT 95
== END 2024-02-15 23:59 | disposition home or self-care (01) ==
PROVIDERS: PCP Family Medicine; Visit Provider Family Medicine
DX: D51.9 Vitamin B12 deficiency anemia, unspecified; Z79.899 Other long term (current) drug therapy
CPT/HCPCS: 96365; 96372; J0612; J3420; J3490; J7050

== ENCOUNTER 2024-03-16 08:02 | Oncology outpatient (recurring) (ONCR) | payer OTHER, SELFPAY ==
[2024-02-20 08:44] VITALS: BP 126/78; PULSE 92; RESP 16; TEMP 36.4; O2SAT 99
[2024-02-20] MEDS: CUPRIC CHLORIDE IV (09:15)
[2024-02-20] MEDS: [UNRECOGNIZED DRUG - OTHER] IV (09:15)
[2024-02-20] MEDS: MULTIVITAMIN IV (09:15)
[2024-02-20] MEDS: CALCIUM GLUCONATE IV (09:15)
[2024-02-20 10:31] LABS: Basophils % 0.4 %; Eosinophils # 0.1 10^3/uL (0.0-0.8); Eosinophils % 0.8 %; Hematocrit 35.1 % (36-47); Lymphocytes # 1.1 10^3/uL (0.8-4.8); Lymphocytes % 15.7 %; Mean Corpuscular HGB Conc 31.9 g/dL (30-55); Mean Corpuscular Hemoglobin 32.5 pg (27-33); Mean Corpuscular Volume 101.7 fl (85-98); Mean Platelet Volume 9.5 fL (7.4-10.4); Monocytes # 0.5 10^3/uL (0.2-0.9); Monocytes % 6.2 %; Neutrophils # 5.52 10^3/uL (1.8-7.7); Neutrophils % 76.6 %; Nucleated Red Blood Cells % 0 %; Platelet Count 246 10^3/cmm (157-399); Red Blood Count 3.45 10^6/uL (3.85-5.65); Red Cell Distribution Width 12.9 % (12.1-15.1); White Blood Count 7.21 10^3/uL (3.29-11.43)
[2024-02-20 10:35] VITALS: BP 98/72; PULSE 78; RESP 18; TEMP 36.6; O2SAT 98
[2024-02-20 11:09] LABS: Alanine Aminotransferase 45 U/L (0-33); Albumin Level 4.4 g/dL (3.5-5.2); Alkaline Phosphatase 87 U/L (35-105); Anion Gap 16.2 (5-19); Aspartate Amino Transferase 38 U/L (0-32); Blood Urea Nitrogen 19 mg/dL (6-20); Calcium 9.6 mg/dL (8.5-10.5); Carbon Dioxide 23 mmol/L (22-29); Chloride 106 mmol/L (98-107); Ferritin 127 ng/mL (15-150); Globulin 2.3 g/dL (1.3-4.6); Glomerular Filtration Rate 65.5 mL/min (90-130); Glucose 94 mg/dL (65-115); Iron 75 ug/dL (37-145); Osmolality Calculated 294 mOsm/kg (285-295); Percent Saturation 15.7 % (20-50); Potassium 4.2 mmol/L (3.5-5.1); Sodium 141 mmol/L (136-145); Total Bilirubin 0.3 mg/dL (0.15-1.2); Total Iron Binding Capacity 477 mcg/dl; Total Protein 6.7 g/dL (6.6-8.7); Unsaturated Iron Binding 402 ug/dL (112-347)
[2024-02-20 11:10] LABS: 25 Hydroxy Vitamin D 11 ng/mL (30-100); Thyroid Stimulating Hormone 1.98 uIU/mL (0.27-4.20)
[2024-02-23 14:50] LABS: Copper Level 110 mcg/dL (70-175)
[2024-02-24] MEDS: MULTIVITAMIN IV (08:27)
[2024-02-24] MEDS: CUPRIC CHLORIDE IV (08:27)
[2024-02-24] MEDS: [UNRECOGNIZED DRUG - OTHER] IV (08:27)
[2024-02-24] MEDS: CALCIUM GLUCONATE IV (08:27)
[2024-02-24 08:31] VITALS: BP 122/81; PULSE 82; RESP 16; TEMP 36.6; O2SAT 94
[2024-02-24] MEDS: cyanocobalamin 1,000 mcg/mL SDV 1000 MCG IM (08:40)
[2024-02-24 09:22] VITALS: BP 124/83; PULSE 77; RESP 16; TEMP 36.4; O2SAT 99
[2024-03-09 08:14] VITALS: BP 131/83; TEMP 37.3
[2024-03-09] MEDS: iron sucrose 200 MG in sodium chloride 0.9% (100 ml) 100 ML 220 MG IV (08:34)
[2024-03-09] MEDS: cyanocobalamin 1,000 mcg/mL SDV 1000 MCG IM (08:35)
[2024-03-09] MEDS: sodium chloride 0.9% 250 ML 75 ML IV (08:35)
[2024-03-09] MEDS: CUPRIC CHLORIDE IV (09:19)
[2024-03-09] MEDS: [UNRECOGNIZED DRUG - OTHER] IV (09:19)
[2024-03-09] MEDS: MULTIVITAMIN IV (09:19)
[2024-03-09] MEDS: CALCIUM GLUCONATE IV (09:19)
[2024-03-09 10:10] VITALS: BP 144/90; PULSE 79; RESP 18; TEMP 36.9; O2SAT 95
[2024-03-16 08:10] VITALS: BP 136/79; PULSE 80; RESP 18; O2SAT 95
[2024-03-16] MEDS: sodium chloride 0.9% 250 ML 75 ML IV (08:29)
[2024-03-16] MEDS: iron sucrose 200 MG in sodium chloride 0.9% (100 ml) 100 ML 220 MG IV (08:29)
[2024-03-16] MEDS: [UNRECOGNIZED DRUG - OTHER] IV (09:04)
[2024-03-16] MEDS: CUPRIC CHLORIDE IV (09:04)
[2024-03-16] MEDS: CALCIUM GLUCONATE IV (09:04)
[2024-03-16] MEDS: MULTIVITAMIN IV (09:04)
[2024-03-16 09:51] VITALS: BP 147/81; PULSE 75; RESP 18; O2SAT 93
== END 2024-03-16 23:59 | disposition home or self-care (01) ==
PROVIDERS: Nurse Practitioner Family; PCP Family Medicine; Visit Provider Family Medicine
DX: Z53.9 Procedure and treatment not carried out, unspecified reason (principal); Z79.899 Other long term (current) drug therapy; D51.8 Other vitamin B12 deficiency anemias; D50.8 Other iron deficiency anemias
CPT/HCPCS: 80053; 82306; 82525; 82728; 83540; 83550; 84443; 85025; 96365; 96367; 96372; J0612; J1756; J3420; J3490; J7050

== ENCOUNTER 2024-04-13 08:30 | Oncology outpatient (recurring) (ONCR) | payer OTHER, SELFPAY ==
[2024-03-23] MEDS: iron sucrose 200 MG in sodium chloride 0.9% (100 ml) 100 ML 220 MG IV (08:35)
[2024-03-23] MEDS: cyanocobalamin 1,000 mcg/mL SDV 1000 MCG IM (08:39)
[2024-03-23 08:50] VITALS: BP 131/83; PULSE 91; RESP 16; TEMP 36.9; O2SAT 98
[2024-03-23] MEDS: MULTIVITAMIN IV (09:12)
[2024-03-23] MEDS: CUPRIC CHLORIDE IV (09:12)
[2024-03-23] MEDS: CALCIUM GLUCONATE IV (09:12)
[2024-03-23] MEDS: [UNRECOGNIZED DRUG - OTHER] IV (09:12)
[2024-03-23 10:00] VITALS: BP 137/89; PULSE 79; RESP 16; TEMP 37.1; O2SAT 99
[2024-03-30 08:27] VITALS: BP 109/77; PULSE 79; RESP 16; TEMP 36.6; O2SAT 97
[2024-03-30] MEDS: iron sucrose 200 MG in sodium chloride 0.9% (100 ml) 100 ML 220 MG IV (08:40)
[2024-03-30] MEDS: MULTIVITAMIN IV (09:25)
[2024-03-30] MEDS: [UNRECOGNIZED DRUG - OTHER] IV (09:25)
[2024-03-30] MEDS: CUPRIC CHLORIDE IV (09:25)
[2024-03-30] MEDS: CALCIUM GLUCONATE IV (09:25)
[2024-04-13] MEDS: iron sucrose 200 MG in sodium chloride 0.9% (100 ml) 100 ML 220 MG IV (08:44)
[2024-04-13 08:46] VITALS: BP 125/83; PULSE 74; RESP 16; TEMP 37.1; O2SAT 97
[2024-04-13] MEDS: CUPRIC CHLORIDE IV (09:22)
[2024-04-13] MEDS: MULTIVITAMIN IV (09:22)
[2024-04-13] MEDS: CALCIUM GLUCONATE IV (09:22)
[2024-04-13] MEDS: [UNRECOGNIZED DRUG - OTHER] IV (09:22)
[2024-04-13] MEDS: cyanocobalamin 1,000 mcg/mL SDV 1000 MCG IM (09:23)
[2024-04-13 10:18] VITALS: BP 109/72; PULSE 67; RESP 16; TEMP 36.3; O2SAT 99
== END 2024-04-16 23:59 | disposition home or self-care (01) ==
PROVIDERS: PCP Family Medicine; Visit Provider Family Medicine
DX: Z53.9 Procedure and treatment not carried out, unspecified reason (principal); D51.8 Other vitamin B12 deficiency anemias; Z79.899 Other long term (current) drug therapy; K91.2 Postsurgical malabsorption, not elsewhere classified; E03.9 Hypothyroidism, unspecified
CPT/HCPCS: 96365; 96367; 96372; J0612; J1756; J3420; J3490; J7050

== ENCOUNTER 2024-05-11 08:15 | Oncology outpatient (recurring) (ONCR) | payer OTHER, SELFPAY ==
[2024-04-20 08:21] VITALS: BP 116/74; PULSE 90; RESP 18; TEMP 36.7
[2024-04-20] MEDS: CUPRIC CHLORIDE IV (08:39)
[2024-04-20] MEDS: CALCIUM GLUCONATE IV (08:39)
[2024-04-20] MEDS: MULTIVITAMIN IV (08:39)
[2024-04-20] MEDS: [UNRECOGNIZED DRUG - OTHER] IV (08:39)
[2024-04-20 09:34] VITALS: BP 110/73; PULSE 76; TEMP 36.8
[2024-04-27 08:22] VITALS: BP 117/80; PULSE 80; RESP 16; TEMP 37.1; O2SAT 96
[2024-04-27] MEDS: CUPRIC CHLORIDE IV (08:36)
[2024-04-27] MEDS: CALCIUM GLUCONATE IV (08:36)
[2024-04-27] MEDS: [UNRECOGNIZED DRUG - OTHER] IV (08:36)
[2024-04-27] MEDS: MULTIVITAMIN IV (08:36)
[2024-04-27] MEDS: cyanocobalamin 1,000 mcg/mL SDV 1000 MCG IM (09:43)
[2024-04-27 09:46] VITALS: BP 113/78; PULSE 76; RESP 16; TEMP 37.2; O2SAT 97
[2024-05-04 08:11] VITALS: BP 116/74; PULSE 84; RESP 18; TEMP 37.2; O2SAT 99
[2024-05-04] MEDS: CALCIUM GLUCONATE IV (08:42)
[2024-05-04] MEDS: [UNRECOGNIZED DRUG - OTHER] IV (08:42)
[2024-05-04] MEDS: CUPRIC CHLORIDE IV (08:42)
[2024-05-04] MEDS: MULTIVITAMIN IV (08:42)
[2024-05-11] MEDS: MULTIVITAMIN IV (08:40)
[2024-05-11] MEDS: [UNRECOGNIZED DRUG - OTHER] IV (08:40)
[2024-05-11] MEDS: CALCIUM GLUCONATE IV (08:40)
[2024-05-11] MEDS: CUPRIC CHLORIDE IV (08:40)
[2024-05-11 09:00] VITALS: BP 103/54; PULSE 77; RESP 16; TEMP 36.6; O2SAT 98
[2024-05-11 09:28] VITALS: BP 117/68; PULSE 75; RESP 16; TEMP 36.3; O2SAT 95
== END 2024-05-16 23:59 | disposition home or self-care (01) ==
PROVIDERS: PCP Family Medicine; Visit Provider Family Medicine
DX: D51.8 Other vitamin B12 deficiency anemias (principal); Z79.899 Other long term (current) drug therapy; Z53.9 Procedure and treatment not carried out, unspecified reason
CPT/HCPCS: 96365; 96372; J0612; J3420; J3490; J7050

== ENCOUNTER 2024-06-15 08:08 | Oncology outpatient (recurring) (ONCR) | payer OTHER, SELFPAY ==
[2024-05-18 08:38] VITALS: BP 106/66; PULSE 75; RESP 16; TEMP 36.7; O2SAT 96
[2024-05-18] MEDS: cyanocobalamin 1,000 mcg/mL SDV 1000 MCG IM (08:44)
[2024-05-18] MEDS: MULTIVITAMIN IV (09:07)
[2024-05-18] MEDS: CALCIUM GLUCONATE IV (09:07)
[2024-05-18] MEDS: [UNRECOGNIZED DRUG - OTHER] IV (09:07)
[2024-05-18] MEDS: CUPRIC CHLORIDE IV (09:07)
[2024-05-18 09:59] VITALS: BP 94/61; PULSE 83; RESP 16; TEMP 36.7; O2SAT 98
[2024-05-25] MEDS: MULTIVITAMIN IV (09:40)
[2024-05-25] MEDS: CUPRIC CHLORIDE IV (09:40)
[2024-05-25] MEDS: [UNRECOGNIZED DRUG - OTHER] IV (09:40)
[2024-05-25] MEDS: CALCIUM GLUCONATE IV (09:40)
[2024-05-25 10:34] VITALS: BP 99/62; PULSE 71; RESP 16; TEMP 36.5; O2SAT 98
[2024-06-01] MEDS: CUPRIC CHLORIDE IV (08:49)
[2024-06-01] MEDS: [UNRECOGNIZED DRUG - OTHER] IV (08:49)
[2024-06-01] MEDS: MULTIVITAMIN IV (08:49)
[2024-06-01] MEDS: CALCIUM GLUCONATE IV (08:49)
[2024-06-01] MEDS: cyanocobalamin 1,000 mcg/mL SDV 1000 MCG IM (08:55)
[2024-06-01 09:32] VITALS: BP 103/60; PULSE 74; RESP 12; TEMP 36.4; O2SAT 97
[2024-06-01 09:52] LABS: Alanine Aminotransferase 27 U/L (0-33); Albumin Level 3.9 g/dL (3.5-5.2); Alkaline Phosphatase 72 U/L (35-105); Anion Gap 10.4 (5-19); Aspartate Amino Transferase 26 U/L (0-32); Blood Urea Nitrogen 10 mg/dL (6-20); Calcium 8.2 mg/dL (8.5-10.5); Carbon Dioxide 22 mmol/L (22-29); Chloride 111 mmol/L (98-107); Globulin 1.7 g/dL (1.3-4.6); Glucose 76 mg/dL (65-115); Osmolality Calculated 286 mOsm/kg (285-295); Potassium 4.4 mmol/L (3.5-5.1); Sodium 139 mmol/L (136-145); Total Bilirubin 0.2 mg/dL (0.15-1.2); Total Protein 5.6 g/dL (6.6-8.7)
[2024-06-08] MEDS: MULTIVITAMIN IV (08:34)
[2024-06-08] MEDS: [UNRECOGNIZED DRUG - OTHER] IV (08:34)
[2024-06-08] MEDS: CALCIUM GLUCONATE IV (08:34)
[2024-06-08] MEDS: CUPRIC CHLORIDE IV (08:34)
[2024-06-08 09:34] VITALS: BP 109/75; PULSE 79; RESP 15; TEMP 36.1; O2SAT 95
[2024-06-15 08:26] VITALS: BP 148/89; PULSE 80; RESP 16; TEMP 36.7; O2SAT 96
[2024-06-15] MEDS: [UNRECOGNIZED DRUG - OTHER] IV (08:59)
[2024-06-15] MEDS: MULTIVITAMIN IV (08:59)
[2024-06-15] MEDS: CUPRIC CHLORIDE IV (08:59)
[2024-06-15] MEDS: CALCIUM GLUCONATE IV (08:59)
[2024-06-15] MEDS: cyanocobalamin 1,000 mcg/mL SDV 1000 MCG IM (10:03)
[2024-06-15 10:05] VITALS: BP 132/76; PULSE 83; RESP 16; TEMP 36.8; O2SAT 95
== END 2024-06-16 23:59 | disposition home or self-care (01) ==
PROVIDERS: Nurse Practitioner Family; PCP Family Medicine; Visit Provider Family Medicine
DX: Z79.899 Other long term (current) drug therapy (principal); D51.8 Other vitamin B12 deficiency anemias; Z53.9 Procedure and treatment not carried out, unspecified reason
CPT/HCPCS: 80053; 96365; 96372; J0612; J3420; J3490; J7050

== ENCOUNTER 2024-07-13 08:09 | Oncology outpatient (recurring) (ONCR) | payer OTHER, SELFPAY ==
[2024-06-29] MEDS: [UNRECOGNIZED DRUG - OTHER] IV (08:48)
[2024-06-29] MEDS: CALCIUM GLUCONATE IV (08:48)
[2024-06-29] MEDS: CUPRIC CHLORIDE IV (08:48)
[2024-06-29] MEDS: MULTIVITAMIN IV (08:48)
[2024-06-29] MEDS: cyanocobalamin 1,000 mcg/mL SDV 1000 MCG IM (09:50)
[2024-06-29 09:54] VITALS: BP 120/83; PULSE 81; RESP 16; TEMP 36.9; O2SAT 95
[2024-07-06 08:09] VITALS: BP 120/79; PULSE 87; RESP 18; TEMP 37.1; O2SAT 99
[2024-07-06] MEDS: CUPRIC CHLORIDE IV (08:34)
[2024-07-06] MEDS: MULTIVITAMIN IV (08:34)
[2024-07-06] MEDS: [UNRECOGNIZED DRUG - OTHER] IV (08:34)
[2024-07-06] MEDS: CALCIUM GLUCONATE IV (08:34)
[2024-07-06 09:25] VITALS: BP 123/87; PULSE 74; RESP 18; TEMP 36.2; O2SAT 96
[2024-07-13] MEDS: MULTIVITAMIN IV (08:52)
[2024-07-13] MEDS: CUPRIC CHLORIDE IV (08:52)
[2024-07-13] MEDS: [UNRECOGNIZED DRUG - OTHER] IV (08:52)
[2024-07-13] MEDS: CALCIUM GLUCONATE IV (08:52)
[2024-07-13] MEDS: cyanocobalamin 1,000 mcg/mL SDV 1000 MCG IM (08:58)
== END 2024-07-17 23:59 | disposition home or self-care (01) ==
PROVIDERS: PCP Family Medicine; Visit Provider Family Medicine
DX: Z53.9 Procedure and treatment not carried out, unspecified reason (principal); D50.8 Other iron deficiency anemias; K91.2 Postsurgical malabsorption, not elsewhere classified; R74.8 Abnormal levels of other serum enzymes; Z79.899 Other long term (current) drug therapy; D51.8 Other vitamin B12 deficiency anemias
CPT/HCPCS: 96365; 96372; 96401; J0612; J3420; J3490; J7050

== ENCOUNTER 2024-08-10 08:17 | Oncology outpatient (recurring) (ONCR) | payer OTHER, SELFPAY ==
[2024-07-20] MEDS: MULTIVITAMIN IV (09:10)
[2024-07-20] MEDS: CUPRIC CHLORIDE IV (09:10)
[2024-07-20] MEDS: CALCIUM GLUCONATE IV (09:10)
[2024-07-20] MEDS: [UNRECOGNIZED DRUG - OTHER] IV (09:10)
[2024-07-20 11:18] VITALS: BP 106/67; PULSE 80; RESP 16; TEMP 36.3; O2SAT 97
[2024-07-27 08:16] VITALS: BP 124/84; PULSE 81; RESP 18; TEMP 35.7; O2SAT 99
[2024-07-27] MEDS: CALCIUM GLUCONATE IV (08:40)
[2024-07-27] MEDS: [UNRECOGNIZED DRUG - OTHER] IV (08:40)
[2024-07-27] MEDS: CUPRIC CHLORIDE IV (08:40)
[2024-07-27] MEDS: MULTIVITAMIN IV (08:40)
[2024-07-27] MEDS: cyanocobalamin 1,000 mcg/mL SDV 1000 MCG IM (08:41)
[2024-08-03 08:25] VITALS: BP 112/73; PULSE 76; RESP 17; TEMP 36.7; O2SAT 96
[2024-08-03] MEDS: CUPRIC CHLORIDE IV (08:32)
[2024-08-03] MEDS: [UNRECOGNIZED DRUG - OTHER] IV (08:32)
[2024-08-03] MEDS: CALCIUM GLUCONATE IV (08:32)
[2024-08-03] MEDS: MULTIVITAMIN IV (08:32)
[2024-08-03 09:34] VITALS: BP 124/81; PULSE 72; RESP 18; TEMP 36.7; O2SAT 92
[2024-08-10 08:30] VITALS: BP 115/77; PULSE 75; RESP 16; TEMP 36.6; O2SAT 97
[2024-08-10] MEDS: CUPRIC CHLORIDE IV (09:18)
[2024-08-10] MEDS: MULTIVITAMIN IV (09:18)
[2024-08-10] MEDS: [UNRECOGNIZED DRUG - OTHER] IV (09:18)
[2024-08-10] MEDS: CALCIUM GLUCONATE IV (09:18)
[2024-08-10] MEDS: cyanocobalamin 1,000 mcg/mL SDV 1000 MCG IM (09:19)
[2024-08-10 10:20] VITALS: BP 110/78; PULSE 78; RESP 17; TEMP 36.6; O2SAT 97
== END 2024-08-14 23:59 | disposition home or self-care (01) ==
PROVIDERS: PCP Family Medicine; Visit Provider Family Medicine
DX: D51.8 Other vitamin B12 deficiency anemias (principal); Z79.899 Other long term (current) drug therapy
CPT/HCPCS: 96365; 96372; J0612; J3420; J3490; J7050

== ENCOUNTER 2024-09-14 08:06 | Oncology outpatient (recurring) (ONCR) | payer OTHER, SELFPAY ==
[2024-08-17 08:10] VITALS: BP 110/77; PULSE 87; TEMP 37.2; O2SAT 97
[2024-08-17] MEDS: CALCIUM GLUCONATE IV (08:29)
[2024-08-17] MEDS: MULTIVITAMIN IV (08:29)
[2024-08-17] MEDS: [UNRECOGNIZED DRUG - OTHER] IV (08:29)
[2024-08-17] MEDS: CUPRIC CHLORIDE IV (08:29)
[2024-08-17 09:22] VITALS: BP 108/73; PULSE 73; TEMP 36.7
[2024-08-24 08:27] VITALS: BP 126/77; PULSE 77; RESP 16; TEMP 36.6; O2SAT 98
[2024-08-24] MEDS: CALCIUM GLUCONATE IV (08:35)
[2024-08-24] MEDS: [UNRECOGNIZED DRUG - OTHER] IV (08:35)
[2024-08-24] MEDS: CUPRIC CHLORIDE IV (08:35)
[2024-08-24] MEDS: MULTIVITAMIN IV (08:35)
[2024-08-24] MEDS: cyanocobalamin 1,000 mcg/mL SDV 1000 MCG IM (09:14)
[2024-08-24 09:18] VITALS: BP 122/83; PULSE 79; RESP 16; TEMP 36.2; O2SAT 96
[2024-08-31 08:29] VITALS: BP 123/84; PULSE 70; RESP 16; TEMP 37; O2SAT 98
[2024-08-31] MEDS: CUPRIC CHLORIDE IV (08:34)
[2024-08-31] MEDS: MULTIVITAMIN IV (08:34)
[2024-08-31] MEDS: CALCIUM GLUCONATE IV (08:34)
[2024-08-31] MEDS: [UNRECOGNIZED DRUG - OTHER] IV (08:34)
[2024-09-07] MEDS: MULTIVITAMIN IV (08:46)
[2024-09-07] MEDS: CALCIUM GLUCONATE IV (08:46)
[2024-09-07] MEDS: [UNRECOGNIZED DRUG - OTHER] IV (08:46)
[2024-09-07] MEDS: CUPRIC CHLORIDE IV (08:46)
[2024-09-07] MEDS: cyanocobalamin 1,000 mcg/mL SDV 1000 MCG IM (08:49)
[2024-09-14] MEDS: [UNRECOGNIZED DRUG - OTHER] IV (08:30)
[2024-09-14] MEDS: MULTIVITAMIN IV (08:30)
[2024-09-14] MEDS: CUPRIC CHLORIDE IV (08:30)
[2024-09-14] MEDS: CALCIUM GLUCONATE IV (08:30)
[2024-09-14 09:16] VITALS: BP 113/78; PULSE 75; RESP 18; TEMP 36.9; O2SAT 96
== END 2024-09-14 23:59 | disposition home or self-care (01) ==
PROVIDERS: PCP Family Medicine; Visit Provider Family Medicine
DX: Z53.9 Procedure and treatment not carried out, unspecified reason; D50.8 Other iron deficiency anemias; Z79.899 Other long term (current) drug therapy
CPT/HCPCS: 96365; 96372; J0612; J3420; J3490; J7050; J9999

== ENCOUNTER 2024-10-12 08:15 | Oncology outpatient (recurring) (ONCR) | payer OTHER, SELFPAY ==
[2024-09-21 08:21] VITALS: BP 123/76; PULSE 80; RESP 18; TEMP 36.5; O2SAT 96
[2024-09-21] MEDS: CUPRIC CHLORIDE IV (08:42)
[2024-09-21] MEDS: MULTIVITAMIN IV (08:42)
[2024-09-21] MEDS: cyanocobalamin 1,000 mcg/mL SDV 1000 MCG IM (08:42)
[2024-09-21] MEDS: CALCIUM GLUCONATE IV (08:42)
[2024-09-21] MEDS: [UNRECOGNIZED DRUG - OTHER] IV (08:42)
[2024-09-21 09:36] VITALS: BP 103/62; PULSE 74; RESP 17; TEMP 37.1; O2SAT 97
[2024-09-28] MEDS: MULTIVITAMIN IV (08:56)
[2024-09-28] MEDS: [UNRECOGNIZED DRUG - OTHER] IV (08:56)
[2024-09-28] MEDS: CUPRIC CHLORIDE IV (08:56)
[2024-09-28] MEDS: CALCIUM GLUCONATE IV (08:56)
[2024-09-28 09:46] VITALS: BP 107/73; PULSE 73; RESP 16; TEMP 36.8; O2SAT 97
[2024-10-05] MEDS: MULTIVITAMIN IV (14:20)
[2024-10-05] MEDS: CALCIUM GLUCONATE IV (14:20)
[2024-10-05] MEDS: CUPRIC CHLORIDE IV (14:20)
[2024-10-05] MEDS: [UNRECOGNIZED DRUG - OTHER] IV (14:20)
[2024-10-05 14:35] LABS: Basophils % 0.6 %; Eosinophils # 0.1 10^3/uL (0.0-0.8); Eosinophils % 2.2 %; Hematocrit 33.2 % (36-47); Lymphocytes # 1.4 10^3/uL (0.8-4.8); Lymphocytes % 28.1 %; Mean Corpuscular Hemoglobin 32.6 pg (27-33); Mean Corpuscular Volume 105.1 fl (85-98); Mean Platelet Volume 9.5 fL (7.4-10.4); Monocytes # 0.4 10^3/uL (0.2-0.9); Monocytes % 8.2 %; Neutrophils # 3.02 10^3/uL (1.8-7.7); Neutrophils % 60.7 %; Nucleated Red Blood Cells % 0 %; Platelet Count 188 10^3/cmm (157-399); Red Blood Count 3.16 10^6/uL (3.85-5.65); Red Cell Distribution Width 12.3 % (12.1-15.1); White Blood Count 4.98 10^3/uL (3.29-11.43)
[2024-10-05 15:13] LABS: 25 Hydroxy Vitamin D 6 ng/mL (30-100); Alanine Aminotransferase 38 U/L (0-33); Albumin Level 4.1 g/dL (3.5-5.2); Alkaline Phosphatase 69 U/L (35-105); Anion Gap 14.2 (5-19); Aspartate Amino Transferase 30 U/L (0-32); Blood Urea Nitrogen 15 mg/dL (6-20); Calcium 8.3 mg/dL (8.5-10.5); Carbon Dioxide 20 mmol/L (22-29); Chloride 109 mmol/L (98-107); Creatinine Clr Calc Pharmacy 64.6601; Ferritin 385 ng/mL (15-150); Globulin 2.1 g/dL (1.3-4.6); Glomerular Filtration Rate 65.5 mL/min (90-130); Glucose 83 mg/dL (65-115); Iron 109 ug/dL (37-145); Osmolality Calculated 288 mOsm/kg (285-295); Percent Saturation 27.3 % (20-50); Potassium 4.2 mmol/L (3.5-5.1); Sodium 139 mmol/L (136-145); Thyroid Stimulating Hormone 6.77 uIU/mL (0.27-4.20); Total Bilirubin 0.2 mg/dL (0.15-1.2); Total Iron Binding Capacity 399 mcg/dl; Total Protein 6.2 g/dL (6.6-8.7); Unsaturated Iron Binding 290 ug/dL (112-347)
[2024-10-05 17:05] LABS: Free T4 Free Thyroxine 0.89 ng/dL (0.82-1.77); T3 Free 1.7 PG/ML (2.0-4.4)
[2024-10-07 12:04] LABS: Copper Level 96 mcg/dL (70-175)
[2024-10-12] MEDS: MULTIVITAMIN IV (08:45)
[2024-10-12] MEDS: CUPRIC CHLORIDE IV (08:45)
[2024-10-12] MEDS: [UNRECOGNIZED DRUG - OTHER] IV (08:45)
[2024-10-12] MEDS: CALCIUM GLUCONATE IV (08:45)
[2024-10-12 09:32] VITALS: BP 102/68; PULSE 76; TEMP 37.1; O2SAT 97
[2024-10-12] MEDS: cyanocobalamin 1,000 mcg/mL SDV 1000 MCG IM (09:39)
== END 2024-10-14 23:59 | disposition home or self-care (01) ==
PROVIDERS: Nurse Practitioner Family; PCP Family Medicine; Visit Provider Family Medicine
DX: Z53.9 Procedure and treatment not carried out, unspecified reason; D51.8 Other vitamin B12 deficiency anemias; Z79.899 Other long term (current) drug therapy
CPT/HCPCS: 80053; 82306; 82525; 82728; 83540; 83550; 84439; 84443; 84481; 85025; 96365; 96372; J0612; J3420; J3490; J7050; J9999

== ENCOUNTER 2024-11-10 08:10 | Oncology outpatient (recurring) (ONCR) | payer OTHER, SELFPAY ==
[2024-10-26 08:30] VITALS: BP 119/82; PULSE 78; RESP 16; TEMP 36.6; O2SAT 97
[2024-10-26] MEDS: MULTIVITAMIN IV (08:36)
[2024-10-26] MEDS: CUPRIC CHLORIDE IV (08:36)
[2024-10-26] MEDS: [UNRECOGNIZED DRUG - OTHER] IV (08:36)
[2024-10-26] MEDS: CALCIUM GLUCONATE IV (08:36)
[2024-10-26] MEDS: cyanocobalamin 1,000 mcg/mL SDV 1000 MCG IM (09:12)
[2024-10-26 09:33] VITALS: BP 123/78; PULSE 78; RESP 16; TEMP 36.6; O2SAT 94
[2024-11-10 08:26] VITALS: BP 119/84; PULSE 80; RESP 16; TEMP 37.2; O2SAT 98
[2024-11-10] MEDS: CALCIUM GLUCONATE IV (08:43)
[2024-11-10] MEDS: CUPRIC CHLORIDE IV (08:43)
[2024-11-10] MEDS: [UNRECOGNIZED DRUG - OTHER] IV (08:43)
[2024-11-10] MEDS: MULTIVITAMIN IV (08:43)
[2024-11-10] MEDS: cyanocobalamin 1,000 mcg/mL SDV 1000 MCG IM (08:47)
== END 2024-11-14 23:59 | disposition home or self-care (01) ==
PROVIDERS: PCP Family Medicine; Visit Provider Family Medicine
DX: Z53.9 Procedure and treatment not carried out, unspecified reason; D51.9 Vitamin B12 deficiency anemia, unspecified; Z79.899 Other long term (current) drug therapy
CPT/HCPCS: 96365; 96372; J0612; J3420; J3490; J7050; J9999

== ENCOUNTER → 2024-12-08 14:59 | Outpatient (BNVA) | payer OTHER, SELFPAY | PROVIDERS: PCP Family Medicine; Visit Provider Physician Assistant | DX: M25.559 Pain in unspecified hip (principal); M16.11 Unilateral primary osteoarthritis, right hip | CPT/HCPCS: 73523 ==

== ENCOUNTER 2024-12-14 08:00 | Oncology outpatient (recurring) (ONCR) | payer OTHER, SELFPAY ==
[2024-11-16 08:04] VITALS: BP 119/76; PULSE 83; RESP 16; TEMP 36.8; O2SAT 99
[2024-11-16] MEDS: [UNRECOGNIZED DRUG - OTHER] IV (08:28)
[2024-11-16] MEDS: CALCIUM GLUCONATE IV (08:28)
[2024-11-16] MEDS: CUPRIC CHLORIDE IV (08:28)
[2024-11-16] MEDS: MULTIVITAMIN IV (08:28)
[2024-11-16 09:17] VITALS: BP 112/76; PULSE 70
[2024-11-30 08:05] VITALS: BP 105/75; PULSE 76; RESP 18; TEMP 36.4; O2SAT 97
[2024-11-30] MEDS: cyanocobalamin 1,000 mcg/mL SDV 1000 MCG IM (08:19)
[2024-11-30] MEDS: CALCIUM GLUCONATE IV (08:32)
[2024-11-30] MEDS: [UNRECOGNIZED DRUG - OTHER] IV (08:32)
[2024-11-30] MEDS: MULTIVITAMIN IV (08:32)
[2024-11-30] MEDS: CUPRIC CHLORIDE IV (08:32)
[2024-11-30 09:28] VITALS: BP 110/72; PULSE 74; RESP 17; TEMP 36.7; O2SAT 97
[2024-12-07] MEDS: CALCIUM GLUCONATE IV (08:38)
[2024-12-07] MEDS: MULTIVITAMIN IV (08:38)
[2024-12-07] MEDS: CUPRIC CHLORIDE IV (08:38)
[2024-12-07] MEDS: [UNRECOGNIZED DRUG - OTHER] IV (08:38)
[2024-12-14] MEDS: [UNRECOGNIZED DRUG - OTHER] IV (08:40)
[2024-12-14] MEDS: MULTIVITAMIN IV (08:40)
[2024-12-14] MEDS: CUPRIC CHLORIDE IV (08:40)
[2024-12-14] MEDS: CALCIUM GLUCONATE IV (08:40)
[2024-12-14] MEDS: cyanocobalamin 1,000 mcg/mL SDV 1000 MCG IM (09:35)
== END 2024-12-14 23:59 | disposition home or self-care (01) ==
PROVIDERS: PCP Family Medicine; Visit Provider Family Medicine
DX: Z53.9 Procedure and treatment not carried out, unspecified reason; D51.8 Other vitamin B12 deficiency anemias; Z79.899 Other long term (current) drug therapy
CPT/HCPCS: 96365; 96372; J0612; J3420; J3490; J7050; J9999

== ENCOUNTER → 2025-01-08 11:55 | Outpatient (BNVA) | payer OTHER, SELFPAY | PROVIDERS: PCP Family Medicine; Visit Provider Student in an Organized Health Care Education/Training Program | DX: M16.11 Unilateral primary osteoarthritis, right hip (principal) | CPT/HCPCS: 77002 ==

== ENCOUNTER 2025-01-11 08:06 | Oncology outpatient (recurring) (ONCR) | payer OTHER, SELFPAY ==
[2024-12-21] MEDS: [UNRECOGNIZED DRUG - OTHER] IV (08:32)
[2024-12-21] MEDS: CUPRIC CHLORIDE IV (08:32)
[2024-12-21] MEDS: CALCIUM GLUCONATE IV (08:32)
[2024-12-21] MEDS: MULTIVITAMIN IV (08:32)
[2024-12-21 09:24] VITALS: BP 124/73; PULSE 79; RESP 16; TEMP 36.6; O2SAT 95
[2025-01-04] MEDS: [UNRECOGNIZED DRUG - OTHER] IV (08:33)
[2025-01-04] MEDS: CALCIUM GLUCONATE IV (08:33)
[2025-01-04] MEDS: MULTIVITAMIN IV (08:33)
[2025-01-04] MEDS: CUPRIC CHLORIDE IV (08:33)
[2025-01-04] MEDS: cyanocobalamin 1,000 mcg/mL SDV 1000 MCG IM (09:14)
[2025-01-04 09:27] VITALS: BP 117/74; PULSE 72; RESP 16; TEMP 36.2; O2SAT 96
[2025-01-11] MEDS: CALCIUM GLUCONATE IV (08:26)
[2025-01-11] MEDS: [UNRECOGNIZED DRUG - OTHER] IV (08:26)
[2025-01-11] MEDS: MULTIVITAMIN IV (08:26)
[2025-01-11] MEDS: CUPRIC CHLORIDE IV (08:26)
[2025-01-11 09:20] VITALS: BP 124/78; PULSE 78; RESP 17; TEMP 36.6; O2SAT 98
== END 2025-01-14 23:59 | disposition home or self-care (01) ==
PROVIDERS: PCP Family Medicine; Visit Provider Family Medicine
DX: D51.8 Other vitamin B12 deficiency anemias (principal); Z79.899 Other long term (current) drug therapy
CPT/HCPCS: 96365; 96372; J0612; J3420; J3490; J7050; J9999

== ENCOUNTER 2025-02-08 08:00 | Oncology outpatient (recurring) (ONCR) | payer OTHER, SELFPAY ==
[2025-01-18 08:13] VITALS: BP 117/80; PULSE 61; TEMP 37.1; O2SAT 96
[2025-01-18] MEDS: [UNRECOGNIZED DRUG - OTHER] IV (08:35)
[2025-01-18] MEDS: MULTIVITAMIN IV (08:35)
[2025-01-18] MEDS: CUPRIC CHLORIDE IV (08:35)
[2025-01-18] MEDS: CALCIUM GLUCONATE IV (08:35)
[2025-01-18] MEDS: cyanocobalamin 1,000 mcg/mL SDV 1000 MCG IM (08:41)
[2025-01-25 08:11] VITALS: BP 107/77; PULSE 79; TEMP 36.7; O2SAT 98
[2025-01-25] MEDS: MULTIVITAMIN IV (08:48)
[2025-01-25] MEDS: CUPRIC CHLORIDE IV (08:48)
[2025-01-25] MEDS: [UNRECOGNIZED DRUG - OTHER] IV (08:48)
[2025-01-25] MEDS: CALCIUM GLUCONATE IV (08:48)
[2025-02-01 08:08] VITALS: BP 114/75; PULSE 83; RESP 16; TEMP 36.4
[2025-02-01] MEDS: CALCIUM GLUCONATE IV (08:59)
[2025-02-01] MEDS: cyanocobalamin 1,000 mcg/mL SDV 1000 MCG IM (08:59)
[2025-02-01] MEDS: [UNRECOGNIZED DRUG - OTHER] IV (08:59)
[2025-02-01] MEDS: MULTIVITAMIN IV (08:59)
[2025-02-01] MEDS: CUPRIC CHLORIDE IV (08:59)
[2025-02-08 08:02] VITALS: BP 114/82; PULSE 84; RESP 18; TEMP 36.3; O2SAT 95
[2025-02-08] MEDS: CALCIUM GLUCONATE IV (08:31)
[2025-02-08] MEDS: [UNRECOGNIZED DRUG - OTHER] IV (08:31)
[2025-02-08] MEDS: CUPRIC CHLORIDE IV (08:31)
[2025-02-08] MEDS: MULTIVITAMIN IV (08:31)
== END 2025-02-14 23:59 | disposition home or self-care (01) ==
PROVIDERS: PCP Family Medicine; Visit Provider Family Medicine
DX: Z53.9 Procedure and treatment not carried out, unspecified reason (principal); D51.8 Other vitamin B12 deficiency anemias; Z79.899 Other long term (current) drug therapy; K90.9 Intestinal malabsorption, unspecified
CPT/HCPCS: 96365; 96372; 96413; J0612; J3420; J3490; J7050; J9999

== ENCOUNTER 2025-03-15 07:58 | Oncology outpatient (recurring) (ONCR) | payer OTHER, SELFPAY ==
[2025-02-22 08:16] VITALS: BP 121/78; PULSE 84; RESP 16; TEMP 36.2; O2SAT 96
[2025-02-22] MEDS: CUPRIC CHLORIDE IV (08:27)
[2025-02-22] MEDS: CALCIUM GLUCONATE IV (08:27)
[2025-02-22] MEDS: [UNRECOGNIZED DRUG - OTHER] IV (08:27)
[2025-02-22] MEDS: MULTIVITAMIN IV (08:27)
[2025-02-22] MEDS: cyanocobalamin 1,000 mcg/mL SDV 1000 MCG IM (08:27)
[2025-02-22 09:23] VITALS: BP 115/84; PULSE 89; RESP 17; TEMP 36.7; O2SAT 97
[2025-03-01] MEDS: CUPRIC CHLORIDE IV (08:23)
[2025-03-01] MEDS: MULTIVITAMIN IV (08:23)
[2025-03-01] MEDS: CALCIUM GLUCONATE IV (08:23)
[2025-03-01] MEDS: [UNRECOGNIZED DRUG - OTHER] IV (08:23)
[2025-03-01 09:19] VITALS: BP 122/85; PULSE 78; RESP 16; TEMP 36.9; O2SAT 99
[2025-03-08 08:22] VITALS: BP 113/70; PULSE 75; RESP 16; TEMP 36.5; O2SAT 98
[2025-03-08] MEDS: CUPRIC CHLORIDE IV (08:55)
[2025-03-08] MEDS: [UNRECOGNIZED DRUG - OTHER] IV (08:55)
[2025-03-08] MEDS: MULTIVITAMIN IV (08:55)
[2025-03-08] MEDS: CALCIUM GLUCONATE IV (08:55)
[2025-03-08 09:40] VITALS: BP 107/71; PULSE 79; RESP 16; TEMP 36.4; O2SAT 98
[2025-03-15 08:12] VITALS: BP 116/82; PULSE 77; RESP 16; TEMP 36.9; O2SAT 97
[2025-03-15] MEDS: [UNRECOGNIZED DRUG - OTHER] IV (08:22)
[2025-03-15] MEDS: MULTIVITAMIN IV (08:22)
[2025-03-15] MEDS: CALCIUM GLUCONATE IV (08:22)
[2025-03-15] MEDS: CUPRIC CHLORIDE IV (08:22)
[2025-03-15] MEDS: cyanocobalamin 1,000 mcg/mL SDV 1000 MCG IM (09:05)
[2025-03-15 09:13] VITALS: BP 134/84; PULSE 75; RESP 16; O2SAT 97
== END 2025-03-16 23:59 | disposition home or self-care (01) ==
PROVIDERS: PCP Family Medicine; Visit Provider Family Medicine
DX: Z53.9 Procedure and treatment not carried out, unspecified reason (principal); D51.8 Other vitamin B12 deficiency anemias; Z79.899 Other long term (current) drug therapy; K90.9 Intestinal malabsorption, unspecified
CPT/HCPCS: 96365; 96372; J0612; J3420; J3490; J7050; J9999

== ENCOUNTER 2025-04-12 08:05 | Oncology outpatient (recurring) (ONCR) | payer OTHER, SELFPAY ==
[2025-03-22 08:26] VITALS: BP 121/82; PULSE 74; RESP 16; TEMP 36.9; O2SAT 98
[2025-03-22] MEDS: CALCIUM GLUCONATE IV (09:04)
[2025-03-22] MEDS: MULTIVITAMIN IV (09:04)
[2025-03-22] MEDS: CUPRIC CHLORIDE IV (09:04)
[2025-03-22] MEDS: [UNRECOGNIZED DRUG - OTHER] IV (09:04)
[2025-03-22 09:58] VITALS: BP 99/57; PULSE 72; RESP 16; TEMP 36.7; O2SAT 98
[2025-03-29 08:33] VITALS: BP 123/83; PULSE 77; RESP 16; TEMP 36.7; O2SAT 95
[2025-03-29] MEDS: CUPRIC CHLORIDE IV (08:55)
[2025-03-29] MEDS: MULTIVITAMIN IV (08:55)
[2025-03-29] MEDS: CALCIUM GLUCONATE IV (08:55)
[2025-03-29] MEDS: [UNRECOGNIZED DRUG - OTHER] IV (08:55)
[2025-03-29 09:01] LABS: Hematocrit 30.1 % (36-47); Hemoglobin 9.40 g/dL (11.27-16.99); Mean Corpuscular HGB Conc 31.2 g/dL (30-55); Mean Corpuscular Hemoglobin 33.0 pg (27-33); Mean Corpuscular Volume 105.6 fl (85-98); Nucleated Red Blood Cells % 0 %; Platelet Count 187 10^3/cmm (157-399); Red Blood Count 2.85 10^6/uL (3.85-5.65); White Blood Count 5.29 10^3/uL (3.29-11.43)
[2025-03-29 09:14] LABS: Alanine Aminotransferase 30 U/L (0-33); Albumin Level 4.1 g/dL (3.5-5.2); Alkaline Phosphatase 67 U/L (35-105); Anion Gap 14.1 (5-19); Aspartate Amino Transferase 28 U/L (0-32); Blood Urea Nitrogen 11 mg/dL (6-20); Calcium 8.2 mg/dL (8.5-10.5); Carbon Dioxide 23 mmol/L (22-29); Chloride 106 mmol/L (98-107); Globulin 2.0 g/dL (1.3-4.6); Glucose 83 mg/dL (65-115); Osmolality Calculated 287 mOsm/kg (285-295); Potassium 4.1 mmol/L (3.5-5.1); Sodium 139 mmol/L (136-145); Total Protein 6.1 g/dL (6.6-8.7)
[2025-03-29] MEDS: cyanocobalamin 1,000 mcg/mL SDV 1000 MCG IM (09:35)
[2025-03-29 09:53] VITALS: BP 144/97; PULSE 75; TEMP 36.7; O2SAT 97
[2025-04-05 08:11] VITALS: BP 121/85; PULSE 79; RESP 18; TEMP 36.3; O2SAT 95
[2025-04-05] MEDS: CUPRIC CHLORIDE IV (08:20)
[2025-04-05] MEDS: [UNRECOGNIZED DRUG - OTHER] IV (08:20)
[2025-04-05] MEDS: MULTIVITAMIN IV (08:20)
[2025-04-05] MEDS: CALCIUM GLUCONATE IV (08:20)
[2025-04-05 09:08] VITALS: BP 118/76; PULSE 80; RESP 18; TEMP 37
[2025-04-12 08:20] LABS: Hematocrit 31.5 % (36-47); Hemoglobin 9.80 g/dL (11.27-16.99); Mean Corpuscular HGB Conc 31.1 g/dL (30-55); Mean Corpuscular Hemoglobin 33.0 pg (27-33); Mean Corpuscular Volume 106.1 fl (85-98); Nucleated Red Blood Cells % 0 %; Platelet Count 183 10^3/cmm (157-399); Red Blood Count 2.97 10^6/uL (3.85-5.65); White Blood Count 5.44 10^3/uL (3.29-11.43)
[2025-04-12 08:48] LABS: Alanine Aminotransferase 24 U/L (0-33); Albumin Level 4.3 g/dL (3.5-5.2); Alkaline Phosphatase 69 U/L (35-105); Anion Gap 15.4 (5-19); Aspartate Amino Transferase 27 U/L (0-32); Blood Urea Nitrogen 10 mg/dL (6-20); Calcium 8.2 mg/dL (8.5-10.5); Carbon Dioxide 23 mmol/L (22-29); Chloride 104 mmol/L (98-107); Creatinine Clr Calc Pharmacy 64.7359; Free T4 Free Thyroxine 1.16 ng/dL (0.82-1.77); Globulin 1.7 g/dL (1.3-4.6); Glucose 99 mg/dL (65-115); Osmolality Calculated 285 mOsm/kg (285-295); Potassium 4.4 mmol/L (3.5-5.1); Sodium 138 mmol/L (136-145); Thyroid Stimulating Hormone 4.46 uIU/mL (0.27-4.20); Total Protein 6.0 g/dL (6.6-8.7)
[2025-04-12 08:50] VITALS: BP 117/77; PULSE 78; RESP 16; TEMP 37.4; O2SAT 98
[2025-04-12] MEDS: [UNRECOGNIZED DRUG - OTHER] IV (09:02)
[2025-04-12] MEDS: CUPRIC CHLORIDE IV (09:02)
[2025-04-12] MEDS: MULTIVITAMIN IV (09:02)
[2025-04-12] MEDS: CALCIUM GLUCONATE IV (09:02)
[2025-04-12 09:03] LABS: Ferritin 294 ng/mL (15-150); Iron 94 ug/dL (37-145); Total Iron Binding Capacity 418 mcg/dl; Unsaturated Iron Binding 324 ug/dL (112-347)
[2025-04-12] MEDS: cyanocobalamin 1,000 mcg/mL SDV 1000 MCG IM (09:30)
[2025-04-12 09:54] VITALS: BP 123/83; PULSE 71; RESP 16; TEMP 36.9; O2SAT 96
== END 2025-04-16 23:59 | disposition home or self-care (01) ==
PROVIDERS: Nurse Practitioner; Nurse Practitioner Family; PCP Family Medicine; Visit Provider Family Medicine
DX: D64.89 Other specified anemias; E03.9 Hypothyroidism, unspecified; Z53.9 Procedure and treatment not carried out, unspecified reason
CPT/HCPCS: 80053; 82306; 82525; 82728; 83540; 83550; 84439; 84443; 85025; 96365; 96372; J0612; J3420; J3490; J7050; J9999

== ENCOUNTER 2025-05-10 08:03 | Oncology outpatient (recurring) (ONCR) | payer OTHER, SELFPAY ==
[2025-04-19] MEDS: CUPRIC CHLORIDE IV (08:35)
[2025-04-19] MEDS: [UNRECOGNIZED DRUG - OTHER] IV (08:35)
[2025-04-19] MEDS: MULTIVITAMIN IV (08:35)
[2025-04-19] MEDS: CALCIUM GLUCONATE IV (08:35)
[2025-04-19 09:36] VITALS: BP 112/79; PULSE 77; RESP 16; TEMP 36.9; O2SAT 97
[2025-04-26 09:01] VITALS: BP 101/68; PULSE 80; RESP 16; TEMP 36.3; O2SAT 98
[2025-04-26] MEDS: MULTIVITAMIN IV (09:07)
[2025-04-26] MEDS: [UNRECOGNIZED DRUG - OTHER] IV (09:07)
[2025-04-26] MEDS: CUPRIC CHLORIDE IV (09:07)
[2025-04-26] MEDS: CALCIUM GLUCONATE IV (09:07)
[2025-04-26] MEDS: cyanocobalamin 1,000 mcg/mL SDV 1000 MCG IM (09:31)
[2025-04-26 09:56] VITALS: BP 114/77; PULSE 87; RESP 16; TEMP 36.8; O2SAT 99
[2025-05-03 08:14] VITALS: BP 118/78; PULSE 84; RESP 16; TEMP 36.6; O2SAT 97
[2025-05-03] MEDS: CALCIUM GLUCONATE IV (08:51)
[2025-05-03] MEDS: MULTIVITAMIN IV (08:51)
[2025-05-03] MEDS: CUPRIC CHLORIDE IV (08:51)
[2025-05-03] MEDS: [UNRECOGNIZED DRUG - OTHER] IV (08:51)
[2025-05-03 09:45] VITALS: BP 112/76; PULSE 67; RESP 16; TEMP 36.6; O2SAT 96
[2025-05-10 08:10] VITALS: BP 123/84; PULSE 87; RESP 16; TEMP 36.6; O2SAT 98
[2025-05-10] MEDS: [UNRECOGNIZED DRUG - OTHER] IV (08:36)
[2025-05-10] MEDS: MULTIVITAMIN IV (08:36)
[2025-05-10] MEDS: CALCIUM GLUCONATE IV (08:36)
[2025-05-10] MEDS: CUPRIC CHLORIDE IV (08:36)
[2025-05-10] MEDS: cyanocobalamin 1,000 mcg/mL SDV 1000 MCG IM (09:28)
== END 2025-05-16 23:59 | disposition home or self-care (01) ==
PROVIDERS: PCP Family Medicine; Visit Provider Family Medicine
DX: D51.8 Other vitamin B12 deficiency anemias (principal); Z79.899 Other long term (current) drug therapy
CPT/HCPCS: 96365; 96372; J0612; J3420; J3490; J7050; J9999

== ENCOUNTER → 2025-05-28 09:30 | Outpatient (BNVA) | payer OTHER, SELFPAY | PROVIDERS: PCP Family Medicine; Visit Provider Student in an Organized Health Care Education/Training Program | DX: M16.11 Unilateral primary osteoarthritis, right hip (principal); Z71.89 Other specified counseling | CPT/HCPCS: 77002 ==

== ENCOUNTER 2025-06-14 08:00 | Oncology outpatient (recurring) (ONCR) | payer OTHER, SELFPAY ==
[2025-05-24 08:21] VITALS: BP 123/81; PULSE 86; TEMP 36.9; O2SAT 100
[2025-05-24] MEDS: MULTIVITAMIN IV (08:48)
[2025-05-24] MEDS: CUPRIC CHLORIDE IV (08:48)
[2025-05-24] MEDS: [UNRECOGNIZED DRUG - OTHER] IV (08:48)
[2025-05-24] MEDS: CALCIUM GLUCONATE IV (08:48)
[2025-05-24] MEDS: cyanocobalamin 1,000 mcg/mL SDV 1000 MCG IM (09:31)
[2025-05-24 09:38] VITALS: BP 109/67
[2025-06-07 08:08] VITALS: BP 110/73; PULSE 86; TEMP 36.3; O2SAT 96
[2025-06-07] MEDS: MULTIVITAMIN IV (08:18)
[2025-06-07] MEDS: CUPRIC CHLORIDE IV (08:18)
[2025-06-07] MEDS: [UNRECOGNIZED DRUG - OTHER] IV (08:18)
[2025-06-07] MEDS: CALCIUM GLUCONATE IV (08:18)
[2025-06-07] MEDS: cyanocobalamin 1,000 mcg/mL SDV 1000 MCG IM (09:11)
[2025-06-14] MEDS: CUPRIC CHLORIDE IV (08:07)
[2025-06-14] MEDS: MULTIVITAMIN IV (08:07)
[2025-06-14] MEDS: CALCIUM GLUCONATE IV (08:07)
[2025-06-14] MEDS: [UNRECOGNIZED DRUG - OTHER] IV (08:07)
== END 2025-06-16 23:59 | disposition home or self-care (01) ==
PROVIDERS: PCP Family Medicine; Visit Provider Family Medicine
DX: D51.8 Other vitamin B12 deficiency anemias (principal); Z79.899 Other long term (current) drug therapy
CPT/HCPCS: 96365; 96372; J0612; J3420; J3490; J7050; J9999